=== PATIENT | female | born 1985 | race Caucasian/White ===

== ENCOUNTER → 2019-06-14 14:30 | Outpatient (BNVA) | payer MEDICAID, SELFPAY | PROVIDERS: Family Provider Nurse Practitioner; PCP Nurse Practitioner; Visit Provider Nurse Practitioner Family | DX: J02.9 Acute pharyngitis, unspecified (principal) | CPT/HCPCS: 87081; 87880 ==

== ENCOUNTER 2019-06-16 19:39 | Emergency (ER) | payer MEDICAID, SELFPAY ==
[2019-06-16 19:42] VITALS: BP 120/78; PULSE 81; RESP 18; TEMP 36.7; O2SAT 99; BMI 33.3
--- NOTE | 2019-06-16 20:26 | ED_ITS ---
HPI - General Adult General: Chief complaint: General Medical Stated complaint: knot on neck Time Seen by Provider: 06/16/19 20:16 History of Present Illness: HPI narrative: Patient states she has had a knot on the right side of her neck for the past week. Is tender to the touch. Basically same in size when she is seen in clinic on . She was placed on a Z-Manuel did not show any improvement. Had flu and strep throat swab was done and those were both negative on . Dad recently finished complete therapy for lymphoma complaint: Swollen lymph gland Onset (ago): week(s) Location: neck Radiation: non-radiation Severity: mild Severity scale (1-10): 3 Quality: aching Pain Consistency: constant Relieving factors: none Exacerbating factors: none Associated symptoms: Reports no associated symptoms; Deny chest pain, dyspnea, headache(s), nausea, rash or vomiting Review of Systems Const: Denies: fever, chills or body aches Eyes: Denies: change in vision or blurry vision ENMT: Denies: throat pain or nasal congestion Card: Denies: chest pain or shortness of breath on exertion Resp: Denies: shortness of breath, productive cough or non-productive cough GI: Denies: abdominal pain, nausea or vomiting Musc: Denies: extremity pain Skin/Breast: Denies: rash Neuro: Denies: headache Psych: Denies: anxiety or depression Denis/Lymph: Reports: enlarged lymph nodes (1 on right sided neck); Denies: easy bruising PFSH ED PFSH: Social History (Updated 06/14/19 @ 14:22 by Slime Rodriguez LPN) Smoking and tobacco status: current every day smoker cigarettes Packs smoked per day: 0.5 Alcohol intake: never Lives independently: Yes Household members: spouse Housing: House Marital status: History of recent travel: No Physical Exam Const: COMMON NORMALS: no apparent distress, average body habitus and oriented x3 HENMT: COMMON NORMALS: normocephalic HEAD & SCALP: normal to inspection and normocephalic FACE & SINUS: normal facial exam Eye: COMMON NORMALS: conjunctivae normal GENERAL EYE: normal appearance of both eyes CONJUNCTIVA: Yes conjunctivae normal Neck/C-Spine: COMMON NORMALS: no JVD OTHER: It is hard to appreciate the size of the lymph gland on the right side very difficult to palpate patient is tender but I cannot feel the border on the posterior aspect of what is possibly a lymph node no firmness shotty nodes are erythema noted Chest: COMMONS NORMALS: inspection of chest normal Resp: COMMON NORMALS: normal respiratory effort and clear to auscultation bilaterally AUSCULTATION: clear to auscultation bilaterally Cardio: COMMON NORMALS: no JVD, regular rate and regular rhythm RATE: regular rate RHYTHM: regular rhythm GI: COMMON NORMALS: normal to inspection, nondistended, normoactive bowel sounds Extremity: COMMON NORMALS: normal to inspection and full ROM Neuro: COMMON NORMALS: oriented x3 Course Vital Signs: Vital signs: Vital Signs Temperature 98.0 F 06/16/19 19:42 Pulse Rate 81 06/16/19 19:42 Respiratory Rate 18 06/16/19 19:42 Blood Pressure 120/78 06/16/19 19:42 Pulse Oximetry 99 06/16/19 19:42 Discharge Plan Discharge Prescriptions: No Action Zithromax Z-Manuel 250 mg Tablet 250 mg PO DAILY RF: 0 Coding Level of Care Code ED Plastics Design Engineer for Chg Kassandra
--- NOTE | 2019-06-16 20:34 | PC.NURSE ---
PATIENT STATES THAT SHE WOKE UP Tuesday06/14/2019 WITH A KNOT ON HER NECK. PATIENT HAS BEEN ON ANTIBIOTICS A PRECAUTION AT THE [facility]. PATIENT STATES THAT HER NECK AND EAR ON THE RIGHT SIDE HAVE BEEN NUMB. PATIENT STATES HER PAIN IS A 7/10
[2019-06-16 20:35] LABS: Basophils % 0.2 %; Eosinophils # 0.1 10^3/uL (0.0-0.8); Eosinophils % 2.2 %; Hematocrit 43.6 % (37.0-47.0); Hemoglobin 14.9 g/dL (11.5-15.3); Lymphocytes # 2.4 10^3/uL (0.8-4.8); Lymphocytes % 39.1 %; Mean Corpuscular HGB Conc 34.2 g/dL (30.0-36.0); Mean Corpuscular Hemoglobin 31.6 pg (28.0-34.0); Mean Corpuscular Volume 92.4 fL (81-99); Mean Platelet Volume 9.8 fL (7.4-10.4); Monocytes # 0.5 10^3/uL (0.2-0.9); Monocytes % 8.3 %; Neutrophils % 49.9 %; Nucleated Red Blood Cells % 0 %; Platelet Count 257 10^3/cmm (130-400); Red Blood Count 4.72 10^6/uL (4.1-5.3); Red Cell Distribution Width 12.1 % (12.1-15.1)
[2019-06-16 20:38] VITALS: BP 126/75; PULSE 77; RESP 16; O2SAT 97
--- NOTE | 2019-06-16 20:39 | PC.NURSE ---
PATIENT STATES SHE HAS A FAMILY HISTORY OF LYMPHOMA ON PATERNAL SIDE.
[2019-06-16 20:51] LABS: Monoscreen Negative (Negative)
[2019-06-16 21:02] VITALS: BP 133/66; PULSE 76; RESP 16; O2SAT 98
== END 2019-06-16 21:05 | disposition home or self-care (01) ==
PROVIDERS: Emergency Provider Nurse Practitioner Family; Family Provider Nurse Practitioner; PCP Nurse Practitioner
DX: R59.0 Localized enlarged lymph nodes (principal); F17.210 Nicotine dependence, cigarettes, uncomplicated
CPT/HCPCS: 85025; 86308; 99281; 99282

== ENCOUNTER → 2019-11-26 15:19 | Outpatient (BNVA) | payer MEDICAID, SELFPAY | PROVIDERS: Family Provider Nurse Practitioner; PCP Nurse Practitioner; Visit Provider Nurse Practitioner | DX: N91.1 Secondary amenorrhea (principal) | CPT/HCPCS: 81025 ==

== ENCOUNTER 2019-12-01 18:30 | Emergency (ER) | payer MEDICAID, SELFPAY ==
[2019-12-01 19:01] VITALS: BP 126/74; PULSE 70; RESP 18; TEMP 36.7; O2SAT 97; BMI 31.8
[2019-12-01 19:37] LABS: Basophils % 0.3 %; Eosinophils # 0.3 10^3/uL (0.0-0.8); Eosinophils % 3.5 %; Hematocrit 41.7 % (37.0-47.0); Hemoglobin 14.2 g/dL (11.5-15.3); Lymphocytes % 37.7 %; Mean Corpuscular HGB Conc 34.1 g/dL (30.0-36.0); Mean Corpuscular Hemoglobin 31.2 pg (28.0-34.0); Mean Corpuscular Volume 91.6 fL (81-99); Mean Platelet Volume 9.8 fL (7.4-10.4); Monocytes # 0.6 10^3/uL (0.2-0.9); Monocytes % 7.8 %; Neutrophils % 50.4 %; Nucleated Red Blood Cells % 0 %; Platelet Count 301 10^3/cmm (130-400); Red Blood Count 4.55 10^6/uL (4.1-5.3); Red Cell Distribution Width 12.3 % (12.1-15.1); White Blood Count 7.9 10^3/uL (4.0-10.0)
[2019-12-01 19:49] LABS: HCG, Serum Qual Negative (Negative)
[2019-12-01 19:55] LABS: Alanine Aminotransferase 16 U/L (0-33); Albumin Level 4.6 g/dL (3.5-5.2); Alkaline Phosphatase 59 IU/L (35-105); Anion Gap 14.7 (5-19); Aspartate Amino Transferase 20 U/L (0-32); Blood Urea Nitrogen 9 mg/dL (6-20); Calcium 9.2 mg/dL (8.5-10.5); Carbon Dioxide 22 mmol/L (22-29); Chloride 104 mmol/L (98-107); Creatinine Clr Calc Pharmacy 160.4251; Globulin 3.1 g/dL (1.3-4.6); Glomerular Filtration Rate 141.2 mL/min (90-130); Glucose 108 mg/dL (65-115); Lipase 24 U/L (13-60); Osmolality Calculated 281 mOsm/kg (285-295); Potassium 3.7 mmol/L (3.5-5.1); Sodium 137 mmol/L (136-145); Total Bilirubin 0.2 mg/dL (0.15-1.2); Total Protein 7.7 g/dL (6.6-8.7)
[2019-12-01 23:30] VITALS: BP 116/77; PULSE 67; RESP 16; O2SAT 95
[2019-12-02 00:01] LABS: Add Urine Microscopic? NO
--- NOTE | 2019-12-02 00:03 | USR_ITS ---
PROCEDURE INFORMATION: Exam: US Duplex Artery or Vein of the Abdominal and/or Reproductive Organs, Limited Ovaries Exam date and time: 12/02/2019 12:43 AM Clinical indication: Other: Patient has not had a period in 14 weeks; Prior surgery; Surgery date: 6+ months; Surgery type: Tubal and c section x 2; Additional info: Abd pain, amenorrhea TECHNIQUE: Imaging protocol: Real-time duplex ultrasound scan of the arterial or venous flow with brown scale, color Doppler flow and spectral waveform analysis with image documentation. Limited duplex exam focused on the ovaries. Duplex images required to evaluate for torsion and other vascular conditions. COMPARISON: No relevant prior studies available. FINDINGS: Right adnexa: Normal duplex of the ovary. Normal Doppler waveforms and color flow. No evidence of ovarian torsion. Left adnexa: Normal duplex of the ovary. Normal Doppler waveforms and color flow. No evidence of ovarian torsion. IMPRESSION: Normal blood flow to both ovaries. PROCEDURE INFORMATION: Exam: US Pelvis Complete, Transabdominal and US Pelvis, Transvaginal Exam date and time: 12/02/2019 12:43 AM Age: 34 years old Clinical indication: Other: Patient has not had a period in 14 weeks; Prior surgery; Surgery date: 6+ months; Surgery type: Tubal and c section x 2; Additional info: Abd pain, amenorrhea TECHNIQUE: Imaging protocol: Real-time transabdominal and transvaginal pelvic ultrasound (complete) with image documentation. Transvaginal imaging was used for better evaluation of the endometrium and adnexa. COMPARISON: CT abdomen pelvis con [id number] 07/17/2015 8:10 PM FINDINGS: Uterus/cervix: The uterus is retroflexed. Contours are otherwise normal. The endometrium is homogenous. Endometrial stripe thickness measures 10 mm. The uterus measures 9.2 x 6.9 x 5.2 cm. Right adnexa: The right ovary contains a cyst with low level internal echoes and subtle lace-like internal septations (see series 1, image 103). There is no blood flow within the lesion. The lesion measures 3.8 x 3.3 x 3.0 cm. There is normal blood flow in the right ovary. The right ovary measures 4.7 x 4.4 x 3.4 cm overall. Left adnexa: The left ovary is morphologically normal. The left ovary measures 2.9 x 2.7 x 2.0 cm. There is normal blood flow in the left ovary. Free fluid: None. Bladder: Normal. US/US pelvic with transvaginal IMPRESSION: 1. 3.8 cm hemorrhagic cyst in the right ovary. Imaging follow-up is not necessary. 2. Normal left ovary. 3. Retroflexed uterus. Normal endometrium.
[2019-12-02 00:04] LABS: Urine Color Yellow (Yellow)
[2019-12-02 00:05] LABS: Bilirubin Urine Neg (NEGATIVE); Blood Urine Neg (Negative); Glucose Urine UA Norm (Normal); Ketones Urine Negative (Negative); Leukocyte Esterase Urine Negative (Negative); Nitrate Urine Negative (Negative); Protein Urine Neg (Negative); Urine Appearance Clear (CLEAR); Urobilinogen Urine Norm (Negative); pH Urine 5 (5-7)
[2019-12-02 00:20] LABS: HCG Qualitative Urine. Negative (Negative)
[2019-12-02 02:26] VITALS: BP 108/81; PULSE 61; RESP 16; O2SAT 99
--- NOTE | 2019-12-02 04:49 | W.ED.ABDPA2 ---
HPI - Abdominal Pain General: Chief Complaint: Abdominal Pain Stated Complaint: possible / abd pain/ 14 weeks 30 days l8 Time Seen by Provider: 12/01/19 23:06 History of Present Illness: HPI narrative: 34-year-old female presenting with pelvic pain. No vaginal discharge. She notes that she has not had a period since September. She is taken tests at home which are negative. She denies any fever. She denies vomiting. MD elicited complaint: abdominal pain Pertinent past history: none Onset (ago): week(s) Pain Consistency: intermittent Location: Suprapubic and Pelvis Severity: moderate Quality: cramping Radiation: none Migration to: no migration Exacerbating factors: nothing Relieving factors: nothing Associated Symptoms: Reports bloating, change in bowel habits, change in stool character, GI cramping, diarrhea and nausea; Denies fever(s), hematochezia, hematuria, hematemesis and vomiting Related Data: Date of Last Menstrual Period: 08/22/19 Review of Systems Const: Denies: fever(s) Eyes: Denies: change in vision ENMT: Denies: swelling of lips/tongue Card: Denies: chest pain, palpitations or irregular heart rhythm Resp: Denies: dyspnea, productive cough, non-productive cough or wheezing GI: Reports: nausea, diarrhea, bloating, GI cramping, change in bowel habits and change in stool character; Denies: vomiting, hematemesis or hematochezia : Denies: hematuria Musc: Denies: neck pain or back pain Skin/Breast: Denies: rash or erythema Neuro: Denies: headache(s), dizziness or vertigo Psych: Denies: anxiety PFS ED PFSH: Medical History (Updated 12/02/19 @ 02:15 by Kurt Trujillo DO) Chronic hand pain Environmental and seasonal allergies Vitamin B deficiency Surgical History (Updated 11/28/19 @ 22:30 by EVELYN Persaud) History of section 2012 and 2014 History of hemorrhoidectomy History of surgery on arm right tendon repair 2017 History of tubal ligation Family History (Updated 11/26/19 @ 15:16 by EVELYN Persaud) Father Cancer Bone and Lymphoma Other Heart disease Denies family history of Bleeding disorder Social History Smoking and tobacco status: current every day smoker cigarettes Packs smoked per day: 0.5 Second hand smoke exposure: Yes Smoking risk assessment/counseling performed?: Yes Alcohol intake: never Desire information about alcohol rehabilitation?: No Counseling given: No Desire information about substance/drug rehabilitation?: No Counseling given: No Adopted: No Caregiver/support person: No Lives independently: Yes Household members: spouse Housing: House Marital status: Number of children: 6 service: No Current occupational status: employed History of recent travel: No Current gender identity: Female Female Reproductive History: Date of last menstrual period: 08/22/19 Physical Exam Const: GENERAL APPEARANCE: well developed ORIENTATION/CONSCIOUSNESS: Yes oriented to person, Yes oriented to place and Yes oriented to time HENMT: COMMON NORMALS: normocephalic, external ears normal and Normal external nose present HEAD & SCALP: normocephalic FACE & SINUS: normal facial exam NOSE: Normal external nose present and No nasal discharge present EXTERNAL EAR: Yes external ears normal MOUTH: tongue normal Eye: COMMON NORMALS: Equal, round and reactive pupils present and EOMs intact bilaterally EYELID: eyelids normal PUPIL: Yes Equal, round and reactive pupils present Neck/C-Spine: GENERAL: No tracheal deviation Chest: COMMONS NORMALS: normal inspection of the chest CHEST: No tenderness Resp: COMMON NORMALS: clear to auscultation bilaterally EFFORT & INSPECTION: No tachypneic, No respiratory distress, No retractions, No uses accessory muscles and No tracheal deviation AUSCULTATION: clear to auscultation bilaterally, no rhonchi, no wheezes and lung sounds not diminished Cardio: COMMON NORMALS: regular rate and regular rhythm RATE: regular rate RHYTHM: regular rhythm HEART SOUNDS: no murmurs PERIPHERAL PULSES: radial pulses present GI: INSPECTION: No abdominal distension AUSCULTATION: No Hyperactive bowel sounds present and No Hypoactive bowel sounds present PALPATION: Yes Tenderness to palpation present (GI) Details: LLQ, RLQ and other (suprapubic), No Guarding due to palpation present (GI) and No Rigid due to palpation PERCUSSION: no dullness to percussion and no tympanic to percussion Neuro: SENSORIUM/ORIENTATION: Yes oriented to person, Yes oriented to place and Yes oriented to time Psych: COMMON NORMALS: mental status grossly normal Skin: COMMON NORMALS: no rashes or lesions noted GENERAL SKIN EXAM: no rashes or lesions noted Course Vital Signs: Vital signs: Vital Signs Temperature 98.0 F 12/01/19 19:01 Pulse Rate 61 12/02/19 02:26 Respiratory Rate 16 12/02/19 02:26 Blood Pressure 108/81 12/02/19 02:26 Pulse Oximetry 99 12/02/19 02:26 MDM - Abdominal Pain MDM Narrative: Medical decision making narrative: 34-year-old female with intermittent pelvic pain, and amenorrhea. Her test is negative here. Hemoglobin is 14. Pelvic ultrasound shows a hemorrhagic ovarian cyst. It is otherwise negative. This is likely the source of her pelvic pain. She was informed of this. She may need hormonal treatment for the amenorrhea. For now, she will be allowed home. Lab Data: Attestation: I reviewed the patient's lab results. Labs: Lab Results 12/01/19 12/01/19 12/01/19 Range/Units 19:18 19:18 19:18 WBC 7.9 (4.0-10.0) 10^3/ uL RBC 4.55 (4.1-5.3) 10^6/u L Hgb 14.2 (11.5-15.3) g/dL Hct 41.7 (37.0-47.0) % MCV 91.6 (81-99) fL MCH 31.2 (28.0-34.0) pg MCHC 34.1 (30.0-36.0) g/dL RDW 12.3 (12.1-15.1) % Plt Count 301 (130-400) 10^3/c mm MPV 9.8 (7.4-10.4) fL Neut % (Auto) 50.4 % Lymph % (Auto) 37.7 % Sierra % (Auto) 7.8 % Eos % (Auto) 3.5 % Baso % (Auto) 0.3 % Neut # (Auto) 4.00 (1.8-7.7) 10^3/u L Lymph # (Auto) 3.0 (0.8-4.8) 10^3/u L Sierra # (Auto) 0.6 (0.2-0.9) 10^3/u L Eos # (Auto) 0.3 (0.0-0.8) 10^3/u L Baso # (Auto) 0.0 (0.0-0.1) 10^3/u L Nucleated RBC % (a uto) 0 % Nucleated RBCs # 0.0 /100WBC Sodium 137 (136-145) mmol/L Potassium 3.7 (3.5-5.1) mmol/L Chloride 104 (98-107) mmol/L Carbon Dioxide 22 (22-29) mmol/L Anion Gap 14.7 (5-19) BUN 9 (6-20) mg/dL Creatinine 0.5 (0.5-0.9) mg/dL GFR Calculation 141.2 H (90-130) mL/min Glucose 108 (65-115) mg/dL Calculated Osmolal ity 281 L (285-295) mOsm/k g Calcium 9.2 (8.5-10.5) mg/dL Total Bilirubin 0.2 (0.15-1.2) mg/dL AST 20 (0-32) U/L ALT 16 (0-33) U/L Alkaline Phosphata se 59 (35-105) IU/L Total Protein 7.7 (6.6-8.7) g/dL Albumin 4.6 (3.5-5.2) g/dL Globulin 3.1 (1.3-4.6) g/dL Lipase 24 (13-60) U/L HCG, Qual Negative (Negative) Urine Color (Yellow) Urine Appearance (CLEAR) Urine pH (5-7) Ur Specific Gravit y (1.005-1.030) Urine Protein (Negative) Urine Glucose (UA) (Normal) Urine Ketones (Negative) Urine Blood (Negative) Urine Nitrate (Negative) Urine Bilirubin (NEGATIVE) Urine Urobilinogen (Negative) mg/dL Ur Leukocyte Martha ase (Negative) 12/01/19 12/01/19 Range/Units 23:37 23:37 WBC (4.0-10.0) 10^3/ uL RBC (4.1-5.3) 10^6/u L Hgb (11.5-15.3) g/dL Hct (37.0-47.0) % MCV (81-99) fL MCH (28.0-34.0) pg MCHC (30.0-36.0) g/dL RDW (12.1-15.1) % Plt Count (130-400) 10^3/c mm MPV (7.4-10.4) fL Neut % (Auto) % Lymph % (Auto) % Sierra % (Auto) % Eos % (Auto) % Baso % (Auto) % Neut # (Auto) (1.8-7.7) 10^3/u L Lymph # (Auto) (0.8-4.8) 10^3/u L Sierra # (Auto) (0.2-0.9) 10^3/u L Eos # (Auto) (0.0-0.8) 10^3/u L Baso # (Auto) (0.0-0.1) 10^3/u L Nucleated RBC % (a uto) % Nucleated RBCs # /100WBC Sodium (136-145) mmol/L Potassium (3.5-5.1) mmol/L Chloride (98-107) mmol/L Carbon Dioxide (22-29) mmol/L Anion Gap (5-19) BUN (6-20) mg/dL Creatinine (0.5-0.9) mg/dL GFR Calculation (90-130) mL/min Glucose (65-115) mg/dL Calculated Osmolal ity (285-295) mOsm/k g Calcium (8.5-10.5) mg/dL Total Bilirubin (0.15-1.2) mg/dL AST (0-32) U/L ALT (0-33) U/L Alkaline Phosphata se (35-105) IU/L Total Protein (6.6-8.7) g/dL Albumin (3.5-5.2) g/dL Globulin (1.3-4.6) g/dL Lipase (13-60) U/L HCG, Qual Negative (Negative) Urine Color Yellow (Yellow) Urine Appearance Clear (CLEAR) Urine pH 5 (5-7) Ur Specific Gravit y 1.010 (1.005-1.030) Urine Protein Neg (Negative) Urine Glucose (UA) Norm (Normal) Urine Ketones Negative (Negative) Urine Blood Neg (Negative) Urine Nitrate Negative (Negative) Urine Bilirubin Neg (NEGATIVE) Urine Urobilinogen Norm (Negative) mg/dL Ur Leukocyte Martha ase Negative (Negative) Discharge Plan Discharge Patient Disposition: Home Clinical Impression: Hemorrhagic cyst of right ovary Condition: Stable Prescriptions: No Action cyclobenzaprine 10 mg tablet 10 mg PO TID PRNRF: 0 Discharge Orders: Discharge Order (Routine); Ordered 12/02/19 Ordered By: Kurt Trujillo Referrals: Yordan Maurer FNP-C [Primary Care Provider] - 4-7 days Discharge Diet: Advance as tolerated Discharge Activity: Increase activity as tolerated Patient Instructions: Ovarian Cyst (ED) Activity Restrictions/Additional Instructions: Return for fever greater than 100, vomiting liquids or medications, passing large amounts of blood, with clots soaking more than 1 pad per hour for more than 3 hours. Follow-up with your doctor. There may be outpatient treatment available for your treatment. Discharge Date/Time: 12/02/19 02:29 Coding Level of Care Code ED Award Machine Operator for Paris Cannon
== END 2019-12-02 02:29 | disposition home or self-care (01) ==
PROVIDERS: Emergency Provider Emergency Medicine; PCP Nurse Practitioner
DX: N83.201 Unspecified ovarian cyst, right side (principal); F17.210 Nicotine dependence, cigarettes, uncomplicated
CPT/HCPCS: 12345; 36415; 76830; 76856; 80053; 81003; 81025; 83690; 84703; 85025; 99282; 99283

== ENCOUNTER → 2020-01-21 09:34 | Outpatient (BNVA) | payer MEDICAID, SELFPAY | PROVIDERS: PCP Family Medicine; Visit Provider Family Medicine | DX: N64.3 Galactorrhea not associated with childbirth (principal); F41.1 Generalized anxiety disorder | CPT/HCPCS: 84146 ==

== ENCOUNTER 2020-06-18 16:52 | Emergency (ER) | payer MEDICAID, SELFPAY ==
[2020-06-18 17:09] VITALS: BP 111/74; PULSE 75; RESP 18; TEMP 36.6; O2SAT 97; BMI 30.1
--- NOTE | 2020-06-18 17:51 | CTR_ITS ---
PROCEDURE INFORMATION: Exam: CT Cervical Spine Without Contrast Exam date and time: 06/18/2020 5:57 PM Age: 34 years old Clinical indication: Neck pain; Additional info: Neck pain, bue weakness TECHNIQUE: Imaging protocol: Computed tomography images of the cervical spine without contrast. Radiation optimization: All CT scans at this facility use at least one of these dose optimization techniques: automated exposure control; mA and/or kV adjustment per patient size (includes targeted exams where dose is matched to clinical indication); or iterative reconstruction. COMPARISON: CR Cervical Spine AP/Lat* [id number] 08/17/2017 4:49 PM RADIATION DOSE METRICS: Total DLP (mGy-cm): 883.25 FINDINGS: Bones/joints: There is scoliosis of the cervical spine concave to the left which may be the result of muscular spasm or positioning. Correlation with clinical findings is suggested. Vertebral alignment is otherwise within normal limits. No fracture is identified. Discs/Spinal canal/Neural foramina: No significant disc protrusion. No severe spinal canal stenosis. No significant neural foraminal narrowing. Lungs: Lung apices are normal. Soft tissues: Prevertebral soft tissues are unremarkable. CT/CT cervical spin wo con* [id number] IMPRESSION: Mild scoliosis as described which may be due to muscular spasm. No fracture is identified. Radiation Dose CTDIVOL = (mGy): DLP = 883.25 (mGy-cm)
--- NOTE | 2020-06-18 17:52 | W.ED.GENADLT ---
HPI - General Adult General: Chief complaint: General Medical Stated complaint: Neck Pain Time Seen by Provider: 06/18/20 17:40 Source: patient Mode of arrival: ambulatory Limitations: no limitations History of Present Illness: HPI narrative: 34-year-old female patient presents to the emergency department with acute change of neck pain. She has history of chronic neck and back pain. Went to the chiropractor on 06/14/2020 for adjustment. She reports woke this morning and was not able to turn her neck. She reports rotation of the neck to the left, as she tries to move her to the right, she experiences intense pain of the right scapula. Onset (ago): day(s) (1) Location: neck Radiation: back Severity: moderate and severe Quality: aching and dull Pain Consistency: constant Relieving factors: medication (Attempted muscle relaxers but did not help as well as ibuprofen) Exacerbating factors: movement Associated symptoms: Deny chest pain, confusion, diaphoresis, dyspnea, headache(s), nausea, rash, palpitations or vomiting Treatments prior to arrival: NSAID and other (Muscle relaxer) Review of Systems General: Reports: 10 or more systems reviewed and unremarkable except in HPI and below Const: Denies: fever(s), chills or diaphoresis Eyes: Denies: blurry vision or eye redness ENMT: Denies: throat pain, dental pain or disequilibrium Card: Denies: chest pain, palpitations or irregular heart rhythm Resp: Denies: dyspnea, productive cough, non-productive cough or wheezing GI: Denies: abdominal pain, nausea or vomiting : Denies: difficulty voiding or dysuria Musc: Reports: neck pain; Denies: back pain, joint pain, joint swelling, joint warmth, joint stiffness or muscle cramps Skin/Breast: Denies: rash or pruritus Neuro: Reports: weakness in extremities (BUE); Denies: headache(s), difficulty walking, confusion or behavioral changes Psych: Denies: anxiety, depression or change in appetite Denis/Lymph: Denies: easy bruising PFSH ED PFSH: Medical History (Updated 06/18/20 @ 18:46 by KAYLYNN Jernigan) Chronic hand pain Environmental and seasonal allergies Vitamin B deficiency Surgical History History of section 2012 and 2014 History of hemorrhoidectomy History of surgery on arm right tendon repair 2017 History of tubal ligation Family History Father Cancer Bone and Lymphoma Other Heart disease Denies family history of Bleeding disorder Social History Smoking and tobacco status: current every day smoker cigarettes Packs smoked per day: 0.5 Second hand smoke exposure: Yes Smoking risk assessment/counseling performed?: Yes Alcohol intake: never Desire information about alcohol rehabilitation?: No Counseling given: No Desire information about substance/drug rehabilitation?: No Counseling given: No Adopted: No Caregiver/support person: No Lives independently: Yes Household members: spouse Housing: House Marital status: Number of children: 6 service: No Current occupational status: employed History of recent travel: No Current gender identity: Female Female Reproductive History: Date of last menstrual period: 08/22/19 Physical Exam Const: COMMON NORMALS: no acute distress, patient oriented x3, healthy appearing, alert and well nourished GENERAL APPEARANCE: cooperative, well kempt, well developed and well hydrated; not ill appearing and not frail appearing ORIENTATION/CONSCIOUSNESS: Yes awake, Yes oriented to person, Yes oriented to place and Yes oriented to time; not confused and not patient obtunded HENMT: COMMON NORMALS: normocephalic, atraumatic, external ears normal, EAC's normal, Normal external nose present and moist oral mucous membranes HEAD & SCALP: normal to inspection, normocephalic and atraumatic FACE & SINUS: sinuses nontender NOSE: Normal external nose present and No nasal polyps present EXTERNAL EAR: Yes external ears normal EXTERNAL AUDITORY CANAL: EAC's normal MOUTH: Normal oral and palatal mucosa present, lip normal and tongue normal THROAT: posterior oropharynx normal Eye: COMMON NORMALS: Equal, round and reactive pupils present and EOMs intact bilaterally GENERAL EYE: appearance normal, both eyes and all related structures PUPIL: Yes Equal, round and reactive pupils present Neck/C-Spine: COMMON NORMALS: full ROM, no lymphadenopathy and supple GENERAL: Yes normal visual inspection and Yes trachea midline CERVICAL SPINE: Yes cervical ROM normal, Yes pain with cervical ROM, Yes Cervical spine tenderness, Yes Paracervical muscle tenderness right, Yes Paracervical spasm right and Yes Trapezius muscle tenderness right OTHER: Head is rotated to the left., Pain with head rotation to the right. Flexion and extension limited secondary to pain Lymph: LYMPHATIC: no lymphadenopathy noted Chest: COMMONS NORMALS: normal inspection of the chest and normal palpation of entire chest wall Resp: COMMON NORMALS: normal respiratory effort, No retractions, No use of accessory muscles and clear to auscultation bilaterally EFFORT & INSPECTION: Yes able to speak in complete sentences, No labored and No audible wheezes AUSCULTATION: clear to auscultation bilaterally Cardio: COMMON NORMALS: regular rate, regular rhythm, S1 normal heart sound present, S2 normal heart sound present and Peripheral pulses 2+ throughout RATE: regular rate RHYTHM: regular rhythm HEART SOUNDS: S1 normal heart sound present and S2 normal heart sound present PERIPHERAL PULSES: Peripheral pulses 2+ throughout GI: COMMON NORMALS: Soft to palpation and non-tender INSPECTION: Yes normal to inspection PALPATION: Yes Soft to palpation : COMMON NORMALS: Yes no CVA tenderness BLADDER/KIDNEY EXAM: Yes no CVA tenderness Back/Pelvis: COMMON NORMALS: no CVA tenderness, thoracic and lumbar spine normal to inspection, no thoracic nor lumbar tenderness, thoraco-lumbar ROM normal and straight leg raise negative bilaterally THORACIC SPINE/UPPER BACK: No thoracic spinal tenderness and Yes paraspinal muscle tenderness Thoracic paraspinal muscle tenderness: right LUMBAR SPINE/LOWER BACK: Yes normal to inspection and Yes lumbar ROM normal Extremity: COMMON NORMALS: normal to inspection, capillary refill normal, no joint enlargement, no clubbing, cyanosis or edema, no calf tenderness and no pedal edema GENERAL: Yes normal exam except as noted Neuro: WALKER COMA SCALE: document GCS findings Walker coma scale eye opening: Spontaneous Ripley coma scale verbal response: Orientated Ripley coma scale motor response: Obey commands Ripley coma scale total score: 15 COMMON NORMALS: patient oriented x3 and no focal motor deficits SENSORIUM/ORIENTATION: Yes alert, Yes oriented to person, Yes oriented to place and Yes oriented to time SPEECH: speech normal GAIT: Yes Normal gait present MONOFILAMENT EXAM PERFORMED: Yes (BUE, digits first third and fifth normal monofilament exam) MOTOR EXAM: 5/5 motor strength present throughout, Pronator motor function not present and Other motor observations present (Pain reproduced with arms at 90 degrees abduction to the rt scapula) Right pupil size (mm): 4 Left pupil size (mm): 4 Psych: COMMON NORMALS: mental status grossly normal, Normal thought process present, cooperative, normal affect, speech normal, activity/motor behavior normal, denies hallucinations, denies homicidal ideation and denies suicidal ideation APPEARANCE: Yes well kempt ACTIVITY/MOTOR BEHAVIOR: Yes appropriate eye contact SPEECH: Yes normal speech THOUGHT PROCESS: Normal thought process present THOUGHT CONTENT: Yes Normal thought content present ATTENTION/CONCENTRATION: Yes attention grossly intact MEMORY/COGNITION: Yes memory grossly intact INSIGHT: Good insight present (Psych) JUDGEMENT: Good judgement present (Psych) Skin: COMMON NORMALS: no rashes or lesions noted and turgor normal GENERAL SKIN EXAM: no rashes or lesions noted and turgor normal Course Vital Signs: Vital signs: Vital Signs Temperature 97.8 F 06/18/20 17:09 Pulse Rate 77 06/18/20 17:56 Respiratory Rate 24 H 06/18/20 17:56 Blood Pressure 121/93 06/18/20 17:56 Pulse Oximetry 98 06/18/20 17:56 Discharge Plan Discharge Patient Disposition: Home Clinical Impression: Torticollis, acute Acute strain of neck muscle Qualifiers: Encounter type: initial encounter Qualified Code(s): S16.1XXA - Strain of muscle, fascia and tendon at neck level, initial encounter Condition: Stable Prescriptions: New prednisone 20 mg tablet 20 mg PO BID 5 Days Qty: 10 RF: 0 methocarbamol 750 mg tablet 750 mg PO Q6H Qty: 10 RF: 0 Discontinued cyclobenzaprine 10 mg tablet 10 mg PO BID PRN (Reason: MUSCLE SPASMS) RF: 0 No Action citalopram 10 mg tablet 10 mg PO DAILY@0900 RF: 0 omeprazole 40 mg capsule,delayed release(DR/EC) 40 mg PO DAILY@0900 RF: 0 Discharge Orders: Discharge ED (Routine); Ordered 06/18/20 Ordered By: Maria Teresa Alba Referrals: Eugenie Buenrostro DO [Primary Care Provider] - Discharge Diet: Usual diet Discharge Activity: Resume usual activity Patient Instructions: Cervical Sprain (ED), Opioid Safety, Torticollis Activity Restrictions/Additional Instructions: Warm moist heat alternate with cool compresses with small range of motion exercises and attempt to straighten your neck. Follow-up with your primary care provider if not improved in 2 to 3 days as physical therapy may be needed May apply [id number] Salonpas to help with pain. Stop cyclobenzaprine, new muscle relaxer, methocarbamol has been provided. Do not drive or operate heavy machinery with use of medication as medication can be sedative Take ibuprofen, 3 tablets, 200 mg 3 times daily. To help with inflammation and pain, take with food May take Tylenol, 1 g 3 times daily as needed for pain. Return to the emergency department if you develop fever, increased weakness of the bilateral upper extremities or inability to feel your arms or legs, bowel or bladder incontinence as these findings are medical emergency. Coding Level of Care Code ED Longitudinal Float Operator for Chg Fwd Exam Comprehensive
[2020-06-18 17:56] VITALS: BP 121/93; PULSE 77; RESP 24; O2SAT 98
[2020-06-18] MEDS: HYDROcodone-acetaminophen 5-325 mg Tablet 1 TAB PO (18:18)
[2020-06-18] MEDS: ketorolac 60 mg/2 mL INJ IM (18:21)
[2020-06-18] MEDS: orphenadrine 30 mg/mL Inj 2 mL 60 MG IM (18:25)
[2020-06-18 19:16] VITALS: BP 116/70; PULSE 76; RESP 18; O2SAT 98
== END 2020-06-18 19:05 | disposition home or self-care (01) ==
PROVIDERS: Emergency Provider Nurse Practitioner Family; PCP Family Medicine
DX: M43.6 Torticollis (principal); S16.1XXA Strain of muscle, fascia and tendon at neck level, initial encounter; F17.210 Nicotine dependence, cigarettes, uncomplicated; X58.XXXA Exposure to other specified factors, initial encounter
CPT/HCPCS: 72125; 96372; 99283; J1885; J2360

== ENCOUNTER 2020-06-23 09:31 | Outpatient (CLI) | payer OTHER, MEDICAID, SELFPAY ==
--- NOTE | 2020-06-23 09:47 | XR_ITS ---
WS: [id number] WRIST RIGHT TECHNIQUE: 2 views of the right wrist CLINICAL INFORMATION: WRIST PAIN COMPARISON: None. FINDINGS: Normal radiocarpal joint. Scaphoid is normal in appearance. No evidence of radiocarpal dislocation. D istal radius and ulna are normal in appearance. XR/XR wrist RT 2V [id number] IMPRESSION: Normal right wrist.
--- NOTE | 2020-06-23 09:48 | XR_ITS ---
WS: [id number] TECHNIQUE: 2 views of the right hand CLINICAL INFORMATION: HAND PAIN COMPARISON: None. FINDINGS: Normal metacarpals. Normal MCP joint. Metacarpal heads are normal in appearance. Normal PIP and DIP j oints. No evidence of acute fracture or dislocation. Radiocarpal joint: Normal. Carpal bones: Normal. XR/XR hand RT 2V [id number] IMPRESSION: Normal right hand.
== END 2020-06-23 09:32 | disposition home or self-care (01) ==
LOC: RAD 09:33
PROVIDERS: PCP Family Medicine; Visit Provider Dermatology
DX: Z02.71 Encounter for disability determination (principal); M79.641 Pain in right hand; M25.531 Pain in right wrist
CPT/HCPCS: 73100; 73120

== ENCOUNTER → 2020-07-25 14:03 | Outpatient (BNVA) | payer MEDICAID, SELFPAY | PROVIDERS: PCP Family Medicine; Visit Provider Family Medicine | DX: D50.9 Iron deficiency anemia, unspecified (principal); R20.2 Paresthesia of skin | CPT/HCPCS: 82607; 82728; 83550; 84443; 85025 ==

== ENCOUNTER → 2020-12-31 11:35 | Outpatient (BNVA) | payer MEDICAID, SELFPAY | PROVIDERS: PCP Family Medicine; Visit Provider Nurse Practitioner Family | DX: Z20.822 Contact with and (suspected) exposure to COVID-19 (principal) | CPT/HCPCS: 87635 ==

== ENCOUNTER 2021-01-31 19:47 | Emergency (ER) | payer MEDICAID, SELFPAY ==
[2021-01-31 20:13] LABS: Add Urine Microscopic? NO; Charge for UA Resulting for Rev
[2021-01-31 20:16] VITALS: BP 117/81; PULSE 75; RESP 18; TEMP 36.8; O2SAT 98; BMI 33.5
--- NOTE | 2021-01-31 20:24 | W.ED.FEMALGU ---
HPI - Female Genitourinary General: Chief complaint: Urogenital-Female Stated complaint: Spot on Vagina Time Seen by Provider: 01/31/21 20:24 History of Present Illness: HPI Narrative: 35-year-old female comes in today with complaints of soreness and tenderness to the left labia. Patient appears well. Patient appears no acute distress. Patient reports that 3 days ago she noted a small nodule there that has enlarged over the past 3 days. Patient denies any fever or chills. Patient does have a history of abscesses. Date of Last Menstrual Period: 01/14/21 Review of Systems General: Reports: 10 or more systems reviewed and unremarkable except in HPI and below Skin/Breast: Reports: changing lesions PFSH ED PFSH: Medical History Chronic hand pain Environmental and seasonal allergies Vitamin B deficiency Surgical History History of section 2012 and 2014 History of hemorrhoidectomy History of surgery on arm right tendon repair 2017 History of tubal ligation Family History Father Cancer Bone and Lymphoma Other Heart disease Denies family history of Bleeding disorder Social History Smoking and tobacco status: current every day smoker cigarettes Packs smoked per day: 0.5 Second hand smoke exposure: Yes Smoking risk assessment/counseling performed?: Yes Alcohol intake: never Desire information about alcohol rehabilitation?: No Counseling given: No Desire information about substance/drug rehabilitation?: No Counseling given: No Adopted: No Caregiver/support person: No Lives independently: Yes Household members: spouse Housing: House Marital status: Number of children: 6 service: No Current occupational status: employed History of recent travel: No Current gender identity: Female Female Reproductive History: Date of last menstrual period: 01/14/21 Physical Exam Const: COMMON NORMALS: no acute distress and patient oriented x3 GENERAL APPEARANCE: cooperative HENMT: COMMON NORMALS: normocephalic and Normal external nose present HEAD & SCALP: normal to inspection and normocephalic NOSE: Normal external nose present Eye: GENERAL EYE: appearance normal, both eyes and all related structures Neck/C-Spine: COMMON NORMALS: full ROM Chest: COMMONS NORMALS: normal inspection of the chest Resp: COMMON NORMALS: normal respiratory effort EFFORT & INSPECTION: Yes able to speak in complete sentences Cardio: COMMON NORMALS: regular rate and regular rhythm RATE: regular rate RHYTHM: regular rhythm GI: COMMON NORMALS: non-tender Extremity: COMMON NORMALS: normal to inspection Neuro: COMMON NORMALS: patient oriented x3 and moves all extremities Psych: COMMON NORMALS: mental status grossly normal and cooperative Skin: NARRATIVE SKIN EXAM: 2 cm abscess to the left labia Procedures Abscess I/D Site: other (Left labia) Side (if applicable): left Local Anesthetic: lidocaine 2% and with epi Amount of anesthesia used (mL): 1 Technique: incised with #11 blade Amount of fluid expressed (mL): 0.5 Irrigation: Yes Packing used?: none Complications: pain Course Vital Signs: Vital signs: Vital Signs Temperature 98.4 F 01/31/21 20:26 Pulse Rate 66 01/31/21 20:26 Respiratory Rate 18 01/31/21 20:26 Blood Pressure 117/81 01/31/21 20:16 Pulse Oximetry 98 01/31/21 20:26 MDM - Female MDM Narrative: Medical decision making narrative: Patient presents with a abscess to the left labia. On exam we note a small abscess approximately 2 cm of induration and redness. Differential diagnosis includes cellulitis, folliculitis, abscess. Under local anesthetic of lidocaine 2% with epinephrine a small incision was made into the abscess with a small amount of purulent fluid from it. Wound was deloculated and a dry dressing applied. Patient was covered with doxycycline 1 tablet in the emergency room and will be continued twice daily for the next 7 days. Patient was given a tablet of hydrocodone for breakthrough pain number 5 tablets on a prescription. Review of the record indicated no recent prescriptions for hydrocodone. Patient is reports understanding of care plan, post procedure care, and need for follow-up or return to the ER. Lab Data: Labs: Lab Results 01/31/21 19:55 Urine Color Yellow (Yellow) Urine Appearance Clear (CLEAR) Urine pH 6.5 (5-7) Ur Specific Gravit y 1.010 (1.005-1.030) Urine Protein Neg (Negative) Urine Glucose (UA) Norm (Normal) Urine Ketones Negative (Negative) Urine Blood Neg (Negative) Urine Nitrate Negative (Negative) Urine Bilirubin Neg (Negative) Urine Urobilinogen 1 mg/dL H mg/dL (Negative) Ur Leukocyte Martha ase Negative (Negative) Discharge Plan Discharge Patient Disposition: Home Condition: Stable Prescriptions: New doxycycline monohydrate 100 mg capsule 100 mg PO BID 7 Days Qty: 14 RF: 0 hydrocodone-acetaminophen 5-325 mg tablet 1 tab PO Q8H PRN (Reason: pain (scale score 7-10)) Qty: 5 RF: 0 Discontinued doxycycline hyclate 100 mg capsule 100 mg PO BID Qty: 20 RF: 0 No Action [id number] 3.5-10,000-1 mg/mL-unit/mL-% drops,suspension 4 drp otic (ear) Q8H 10 Days Qty: 10 RF: 0 dexamethasone 6 mg tablet 6 mg PO DAILY 5 Days Qty: 5 RF: 0 ropinirole 0.5 mg tablet 0.5 mg PO .AT BEDTIME 90 Days Qty: 90 RF: 0 citalopram 20 mg tablet 20 mg PO DAILY@0900 Qty: 90 RF: 0 omeprazole 40 mg capsule,delayed release(DR/EC) 40 mg PO DAILY@0900 RF: 0 methocarbamol 750 mg tablet 750 mg PO Q6H Qty: 10 RF: 0 Discharge Orders: Discharge ED (Routine); Ordered 01/31/21 Ordered By: Dewey Mera Discharge Diet: Usual diet Discharge Activity: Increase activity as tolerated Patient Instructions: Abscess Incision and Drainage (DC), Opioid Safety Activity Restrictions/Additional Instructions: Warm moist packs to the area. Use acetaminophen and ibuprofen for pain. Monitor for worsening swelling, high fever greater than 100.4, or new concerns. Follow-up with primary care as needed. Return to the ER for new concerns. Coding Level of Care Code ED Laundry Operator Wash Room for P[place] [facility]
[2021-01-31 20:26] VITALS: PULSE 66; RESP 18; TEMP 36.9; O2SAT 98
[2021-01-31 20:27] LABS: Bilirubin Urine Neg (Negative); Blood Urine Neg (Negative); Glucose Urine UA Norm (Normal); Ketones Urine Negative (Negative); Leukocyte Esterase Urine Negative (Negative); Nitrate Urine Negative (Negative); Protein Urine Neg (Negative); Urine Appearance Clear (CLEAR); Urine Color Yellow (Yellow); Urobilinogen Urine 1 mg/dL (Negative); pH Urine 6.5 (5-7)
[2021-01-31] MEDS: HYDROcodone-acetaminophen 5-325 mg Tablet 1 TAB PO (21:02)
[2021-01-31] MEDS: doxycycline 100 mg Tablet PO (21:03)
[2021-01-31 21:04] VITALS: BP 114/71; PULSE 68; RESP 16; TEMP 36.8; O2SAT 100
== END 2021-01-31 21:08 | disposition home or self-care (01) ==
PROVIDERS: Emergency Provider Nurse Practitioner Family
DX: N76.4 Abscess of vulva (principal); F17.210 Nicotine dependence, cigarettes, uncomplicated
CPT/HCPCS: 56405; 81003; 99283

== ENCOUNTER 2021-03-03 04:31 | Emergency (ER) | payer MEDICAID, SELFPAY ==
[2021-03-03 04:39] VITALS: BP 135/86; PULSE 65; RESP 20; TEMP 36.6; O2SAT 99; BMI 31.8
--- NOTE | 2021-03-03 04:59 | W.ED.GENADLT ---
HPI - General Adult General: Chief complaint: Dental/Oral Stated complaint: Toothache Time Seen by Provider: 03/03/21 04:55 History of Present Illness: HPI narrative: HPI: [35]yo patient w/ hx of dental caries x 18 days currently presenting to the ED concerns for dental pain x 6 days after finishing her course of abx. Patient tells me she has been unable to follow up with a dentist for a root canal given her insurance status and tight finance. Patient denies fever/chill, difficulty breathing, tongue/throat/ mouth swelling, hoarseness of voice, drooling, neck pain, or difficulty ranging the neck. Patient has been unable to follow up with a dentist currently. Onset: [18]days ago Duration: ongoing Location: home Severity: mild/moderate Review of Systems Narrative: Constitutional: No fever, no chills. HEENT: No vision changes, +dental pain CV: No chest pain, no palpitations PULM: No productive cough, no dyspnea. GI: No abdominal pain, no N/V/D. : No Dysuria MSKEL: No muscle pain SKIN: No new rashes, no lesions. NEURO: No headache, no focal weakness. HEME: No visible bruises PSYCH: Normal mood PFSH ED PFSH: Medical History (Updated 03/03/21 @ 04:58 by Angie Long MD) Chronic hand pain Environmental and seasonal allergies Vitamin B deficiency Surgical History History of section 2012 and 2014 History of hemorrhoidectomy History of surgery on arm right tendon repair 2017 History of tubal ligation Family History Father Cancer Bone and Lymphoma Other Heart disease Denies family history of Bleeding disorder Social History Smoking and tobacco status: current every day smoker cigarettes Packs smoked per day: 0.5 Second hand smoke exposure: Yes Smoking risk assessment/counseling performed?: Yes Alcohol intake: never Desire information about alcohol rehabilitation?: No Counseling given: No Desire information about substance/drug rehabilitation?: No Counseling given: No Adopted: No Caregiver/support person: No Lives independently: Yes Household members: spouse Housing: House Marital status: Number of children: 6 service: No Current occupational status: employed History of recent travel: No Current gender identity: Female Female Reproductive History: Date of last menstrual period: 02/11/21 Physical Exam Narrative: EXAM NARRATIVE: Head: Atraumatic Eyes: PERRL, conjunctiva without injection, eyes tracking ENT: Mucous membrane moist, +tooth 46 and 16 tenderness to palpation, no tooth subluxation, no no gumline swelling, no tongue protrusion or elevation, uvula midline, no tonsillar/peritonsillar swelling or erythema, no TMJ tenderness NECK: Supple without lymphadenopathy, ROM of the neck intact, no anterior neck tenderness to palpation ro swelling LUNGS: LCTAB CV: RRR ABDOMEN: Soft, nontender EXTREMITY: Normal ROM SKIN: No rash or erythema NEURO: Awake and alert. No focal weakness PSYCH: Cooperative mood and affect Course Vital Signs: Vital signs: Vital Signs Temperature 97.9 F 03/03/21 04:39 Pulse Rate 65 03/03/21 04:39 Respiratory Rate 20 H 03/03/21 04:39 Blood Pressure 135/86 03/03/21 04:39 Pulse Oximetry 99 03/03/21 04:39 MDM - General Adult MDM Narrative: Medical decision making narrative: [35]yo patient w/ hx of tooth infection x 18 days presenting dental pain x 6 days w/ tenderness to palpation over the tooth 46 and 16 concerning for dental caries. Patient is HDS, afebrile. No signs of airway compromise. Patient not immunosuppressed. No e/o tooth fracture, avulsion, or bleeding socket. No e/o RPA, BASIC ACOUSTIC ANALYST, Pamela?s angina, periapical abscess. No e/o gingival hyperplasia or concern for drug reaction. No signs of ANUG today on physical exam. Rx clindamycin 300 BID x 14 days. Patient is given floraster for concerns for diarrhea Patient is given strict return precautions for any signs of infection, pamela's angina, or other signs of infection. Disposition: Discharge. Patient counseled regarding diagnostic impression, treatment plan. Patient given ED strict return precautions to return for continuation, worsening, or development of new symptoms. Instructed to f/u w/ PCP and dentist regarding symptoms today. Patient verbalized understanding. Discharge Plan Discharge Patient Disposition: Home Clinical Impression: Pain, dental, Dental infection Condition: Stable Prescriptions: New clindamycin HCl 300 mg capsule 300 mg PO Q12H 14 Days Qty: 28 RF: 0 Florastor 250 mg capsule 250 mg PO Q12H 8 Days Qty: 16 RF: 0 No Action [id number] 3.5-10,000-1 mg/mL-unit/mL-% drops,suspension 4 drp otic (ear) Q8H 10 Days Qty: 10 RF: 0 dexamethasone 6 mg tablet 6 mg PO DAILY 5 Days Qty: 5 RF: 0 ropinirole 0.5 mg tablet 0.5 mg PO .AT BEDTIME 90 Days Qty: 90 RF: 0 citalopram 20 mg tablet 20 mg PO DAILY@0900 Qty: 90 RF: 0 omeprazole 40 mg capsule,delayed release(DR/EC) 40 mg PO DAILY@0900 RF: 0 methocarbamol 750 mg tablet 750 mg PO Q6H Qty: 10 RF: 0 hydrocodone-acetaminophen 5-325 mg tablet 1 tab PO Q8H PRN (Reason: pain (scale score 7-10)) Qty: 5 RF: 0 Discharge Orders: Discharge ED (Routine); Ordered 03/03/21 Ordered By: Angie Long Discharge Diet: Advance as tolerated Discharge Activity: Resume usual activity Patient Instructions: Toothache (ED) Activity Restrictions/Additional Instructions: Take your antibiotics as instructed. Come back to the emergency room and then if there is any worsening facial swelling. Coding Level of Care Code ED Pilot Plant Research Technician for [place] [facility]
[2021-03-03] MEDS: clindamycin 150 mg Capsule 300 MG PO (05:22)
[2021-03-03 05:23] VITALS: BP 156/87; PULSE 87; RESP 18; O2SAT 98
--- NOTE | 2021-03-03 14:38 | DCPLANNER ---
title manager had message to speak with patient about a getting a dentist. title manager spoke with patient, she stated that she is to call a dentist in [facility] tomorrow, to see if she can get worked in, that accepts adult medicaid.
== END 2021-03-03 05:25 | disposition home or self-care (01) ==
PROVIDERS: Emergency Provider Emergency Medicine
DX: K04.7 Periapical abscess without sinus (principal); F17.210 Nicotine dependence, cigarettes, uncomplicated
CPT/HCPCS: 99283

== ENCOUNTER → 2022-03-12 10:58 | Outpatient (BNVA) | payer MEDICAID, SELFPAY | PROVIDERS: PCP Family Medicine; Visit Provider Nurse Practitioner Family | DX: R50.9 Fever, unspecified (principal); J98.8 Other specified respiratory disorders | CPT/HCPCS: 87400; 87426 ==

== ENCOUNTER 2022-05-05 10:58 | Emergency (ER) | payer MEDICAID, SELFPAY ==
[2022-05-05 11:03] VITALS: BP 115/80; PULSE 69; RESP 17; TEMP 36.9; O2SAT 96; BMI 32.5
--- NOTE | 2022-05-05 11:17 | ED_ITS ---
HPI - Back Pain/Injury General: Chief Complaint: Back Pain/Injury Stated Complaint: back pain Time Seen by Provider: 05/05/22 11:11 Source: patient Mode of arrival: ambulatory Limitations: no limitations History of Present Illness: Patient is a 36-year-old female presents to ED today with a complaint of neck and back pain. Patient states she has had pain intermittently for years . He has been seen her primary care provider Dr. Capellan as well as [facility] ED PFSH: Medical History Chronic hand pain Environmental and seasonal allergies Psychiatric care Vitamin B deficiency Surgical History History of section 2012 and 2014 History of hemorrhoidectomy History of surgery on arm right tendon repair 2017 History of tubal ligation Family History Father Cancer Bone and Lymphoma Other Heart disease Denies family history of Bleeding disorder Social History Smoking and tobacco status: current every day smoker cigarettes Packs smoked per day: 0.5 Years cigarettes smoked: 20 Quit status (tobacco): has tried quititng Number of times tried to quit tobacco: 1 Second hand smoke exposure: No Smoking risk assessment/counseling performed?: No Alcohol intake: never Desire information about alcohol rehabilitation?: No Counseling given: No Desire information about substance/drug rehabilitation?: No Counseling given: No Adopted: No Caregiver/support person: No Lives independently: Yes Household members: spouse Housing: House Marital status: Number of children: 6 service: No Current occupational status: employed History of recent travel: No Current gender identity: Female Female Reproductive History: Date of last menstrual period: 02/11/21 Course Vital Signs: Vital signs: Vital Signs Temperature 98.5 F 05/05/22 11:03 Pulse Rate 69 05/05/22 11:03 Respiratory Rate 17 05/05/22 11:03 Blood Pressure 115/80 05/05/22 11:03 Pulse Oximetry 96 05/05/22 11:03 Oxygen Delivery Me thod 05/05/22 11:03 Discharge Plan Discharge Patient Disposition: Home Clinical Impression: Cervical radicular pain Condition: Stable Prescriptions: New methocarbamol 500 mg tablet 1,000 mg PO Q8H Qty: 30 0RF Medrol (Manuel) 4 mg tablets,dose pack See Rx Instructions .ROUTE .COMPLEX Qty: 21 0RF Rx Instructions: orally per package directions No Action doxycycline hyclate 100 mg capsule 100 mg PO BID Qty: 20 0RF fluconazole 150 mg tablet 150 mg PO Q3D Qty: 2 0RF gabapentin 100 mg capsule See Rx Instructions .ROUTE .COMPLEX Qty: 30 5RF Dose Instruction: TAKE ONE CAPSULE BY MOUTH DAILY in THE evening Rx Instructions: TAKE ONE CAPSULE BY MOUTH DAILY in THE evening meloxicam 7.5 mg tablet See Rx Instructions .ROUTE .COMPLEX Qty: 30 5RF Dose Instruction: TAKE ONE TABLET BY MOUTH DAILY FOR arm pain/inflammation Rx Instructions: TAKE ONE TABLET BY MOUTH DAILY FOR arm pain/inflammation hydrocodone-acetaminophen 5-325 mg tablet 1 tab PO BID PRN (Reason: severe pain) 30 Days Qty: 60 0RF Rx Instructions: for severe arm pain citalopram [Celexa] 40 mg tablet 40 mg PO DAILY Qty: 30 1RF Discharge Orders: Discharge ED (Routine); Ordered 05/05/22 Ordered By: Ginette Arellano Referrals: Renny Rosas DO [Primary Care Provider] - Coding Level of Care Code ED 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
[2022-05-05] MEDS: dexamethasone 10 mg/mL INJ 8 MG IM (11:41)
[2022-05-05] MEDS: orphenadrine 30 mg/mL Inj 2 mL 60 MG IM (11:41)
[2022-05-05] MEDS: ketorolac 60 mg/2 mL INJ IM (11:41)
--- NOTE | 2022-05-05 11:58 | ED_ITS ---
HPI - Neck Pain/Injury General: Chief Complaint: Back Pain/Injury Stated Complaint: back pain Time Seen by Provider: 05/05/22 11:11 Source: patient Mode of arrival: ambulatory Limitations: no limitations History of Present Illness: Patient is a 36-year-old female presents to ED today with a complaint of neck and back pain. Patient states she has had pain intermittently for years . He has been seen her primary care provider Dr. Rosas as well as seeing a chiropractor. Patient states PCP recently ordered a cervical MRI but the insurance denied. States she was told to come to the ED. Patient states her pain seems to radiate into her bilateral arms but does not endorse any numbness, tingling, loss of sensation, or weakness. MD complaint: neck pain Onset (ago): year(s) Radiation: right lateral, left lateral, right shoulder and left shoulder Severity: moderate Duration: constant Exacerbating factors: movement of extremity and movement of neck Associated symptoms: Reports no associated symptoms; Denies headache(s) Review of Systems Const: Denies: fever(s), chills, body aches, fatigue or malaise Card: Denies: chest pain Resp: Denies: dyspnea GI: Denies: abdominal pain Musc: Reports: neck pain and back pain; Denies: extremity pain, extremity swelling, joint pain, joint swelling or joint redness Skin/Breast: Denies: rash Neuro: Denies: headache(s), numbness in extremities, weakness in extremities or sensory changes COUNT INCLUDES THE [facility] ED PFSH: Medical History Chronic hand pain Environmental and seasonal allergies Psychiatric care Vitamin B deficiency Surgical History History of section 2013 and 2014 History of hemorrhoidectomy History of surgery on arm right tendon repair 2017 History of tubal ligation Family History Father Cancer Bone and Lymphoma Other Heart disease Denies family history of Bleeding disorder Social History Smoking and tobacco status: current every day smoker cigarettes Packs smoked per day: 0.5 Years cigarettes smoked: 20 Quit status (tobacco): has tried quititng Number of times tried to quit tobacco: 1 Second hand smoke exposure: No Smoking risk assessment/counseling performed?: No Alcohol intake: never Desire information about alcohol rehabilitation?: No Counseling given: No Desire information about substance/drug rehabilitation?: No Counseling given: No Adopted: No Caregiver/support person: No Lives independently: Yes Household members: spouse Housing: House Marital status: Number of children: 6 service: No Current occupational status: employed History of recent travel: No Current gender identity: Female Female Reproductive History: Date of last menstrual period: 02/11/21 Physical Exam Const: COMMON NORMALS: no acute distress, average body habitus, no limitations, alert and well nourished HENMT: COMMON NORMALS: normocephalic and atraumatic HEAD & SCALP: normal to inspection, normocephalic and atraumatic Neck/C-Spine: COMMON NORMALS: full ROM, no lymphadenopathy and no meningeal signs GENERAL: Yes normal visual inspection, No anterior neck swelling and No submandibular swelling CERVICAL SPINE: Yes pain with cervical ROM, No Cervical spine tenderness, No step off deformity and Yes Paracervical muscle tenderness Back/Pelvis: BACK IMAGE (FEMALE): 1. diffusely tender Extremity: COMMON NORMALS: normal to inspection and full ROM GENERAL: Yes normal exam except as noted Neuro: COMMON NORMALS: moves all extremities, no focal motor deficits and no sensory deficits noted SENSORIUM/ORIENTATION: Yes alert MENINGEAL SIGNS: Yes no meningeal signs MOTOR EXAM: 5/5 motor strength present throughout Course Vital Signs: Vital signs: Vital Signs Temperature 98.5 F 05/05/22 11:03 Pulse Rate 69 05/05/22 11:03 Respiratory Rate 17 05/05/22 11:03 Blood Pressure 115/80 05/05/22 11:03 Pulse Oximetry 96 05/05/22 11:03 Oxygen Delivery Me thod 05/05/22 11:03 MDM - Neck Pain/Injury Medical Decision Making This seems to be an ongoing problem for patient. States symptoms have waxed and waned over several years although it is progressively worsening. Patient does not have any red flags noted on history. I do not appreciate any neurologic compromise on her physical exam. I agree with decision for MRI imaging although this does not need to be completed on an emergency/stat basis. Recommend she continue to follow-up with primary care. We will place her on steroids and muscle relaxers to see if this provides her any discomfort relief. Discharge Plan Discharge Patient Disposition: Home Clinical Impression: Cervical radicular pain Condition: Stable Prescriptions: New methocarbamol 500 mg tablet 1,000 mg PO Q8H Qty: 30 0RF Medrol (Manuel) 4 mg tablets,dose pack See Rx Instructions .ROUTE .COMPLEX Qty: 21 0RF Rx Instructions: orally per package directions No Action doxycycline hyclate 100 mg capsule 100 mg PO BID Qty: 20 0RF fluconazole 150 mg tablet 150 mg PO Q3D Qty: 2 0RF gabapentin 100 mg capsule See Rx Instructions .ROUTE .COMPLEX Qty: 30 5RF Dose Instruction: TAKE ONE CAPSULE BY MOUTH DAILY in THE evening Rx Instructions: TAKE ONE CAPSULE BY MOUTH DAILY in THE evening meloxicam 7.5 mg tablet See Rx Instructions .ROUTE .COMPLEX Qty: 30 5RF Dose Instruction: TAKE ONE TABLET BY MOUTH DAILY FOR arm pain/inflammation Rx Instructions: TAKE ONE TABLET BY MOUTH DAILY FOR arm pain/inflammation hydrocodone-acetaminophen 5-325 mg tablet 1 tab PO BID PRN (Reason: severe pain) 30 Days Qty: 60 0RF Rx Instructions: for severe arm pain citalopram [Celexa] 40 mg tablet 40 mg PO DAILY Qty: 30 1RF Discharge Orders: Discharge ED (Routine); Ordered 05/05/22 Ordered By: Ginette Arellano Referrals: Renny Rosas DO [Primary Care Provider] - Coding Level of Care Code ED 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
== END 2022-05-05 11:45 | disposition home or self-care (01) ==
PROVIDERS: Emergency Provider Physician Assistant; PCP Family Medicine
DX: M54.12 Radiculopathy, cervical region (principal); F17.210 Nicotine dependence, cigarettes, uncomplicated
CPT/HCPCS: 96372; 99285; J1100; J1885; J2360

== ENCOUNTER → 2022-06-08 10:28 | Outpatient (BNVA) | payer MEDICAID, SELFPAY | PROVIDERS: PCP Family Medicine; Referring Provider Family Medicine; Visit Provider Physician Assistant | DX: M54.12 Radiculopathy, cervical region (principal) | CPT/HCPCS: 72050 ==

== ENCOUNTER 2022-10-13 12:48 | Outpatient (CLI) | payer MEDICAID, SELFPAY ==
--- NOTE | 2022-10-13 13:00 | MR_ITS ---
WS: [id number] MRI CERVICAL SPINE NONCONTRAST TECHNIQUE: Sagittal T1, T2 and STIR imaging. Axial T2, gradient, and fiesta imaging. Gadolinium was a dministered but no post gadolinium imaging was obtained due to contrast reaction. See comments below. CLINICAL INFORMATION: R29.90 - Unspecified symptoms and signs involving the ner... FINDINGS: Straightening of the normal cervical lordosis. Mild disc bulging worse at C4-C5 and C6-C7. Cord signa l is normal. C2-C3: Normal. C3-C4: Mild facet arthropathy. Spinal canal and foramen are patent. C4-C5: Mild disc bulge with a tiny central protrusion. Mild facet arthropathy. Spinal canal and jeremi en are patent. C5-C6: No significant disc bulging. Mild facet arthropathy. Mild RIGHT C5-C6 bony foraminal narrowing . Spinal canal is patent. C6-C7: Tiny central protrusion.Moderate LEFT and no significant RIGHT foraminal narrowing. Spinal can al is patent. Mild facet arthropathy. C7-T1: No significant disc bulging. Spinal canal and foramen are patent. Visualized brain stem structures: Normal. Prevertebral soft tissues: Normal. MR/MR cervical spin wo con* [id number] IMPRESSION: 1. Straightening of the normal cervical lordosis. Cord signal is normal. 2. LEFT eccentric disc osteophyte complex with moderate LEFT bony foraminal na rrowing C6-C7. Recommend correlation for LEFT C7 nerve root symptoms. 3. Mild RIGHT C5-C6 bony foraminal narrowing. 4. Tiny central protrusion C4-C5. 5. Mild to moderate facet arthropathy worse at LEFT C3-C4, bilateral C4-C5, an d bilateral C5-C6 * After administration of gadolinium, patient experienced immediate contrast r eaction with hives and difficulty breathing. Rapid response was called and villa ent transferred to the ER for further assessment. Recommend contrast not be adm inistered in the future including CT and MRI contrast unless absolutely necessa ry for medical care. If contrast is required, recommend premedication protocol with imaging performed in a hospital setting
== END 2022-10-13 12:49 | disposition home or self-care (01) ==
PROVIDERS: PCP Family Medicine; Visit Provider Psychiatry & Neurology Neurology
DX: M25.78 Osteophyte, vertebrae (principal); M48.02 Spinal stenosis, cervical region; M47.812 Spondylosis without myelopathy or radiculopathy, cervical region
CPT/HCPCS: 72141

== ENCOUNTER 2022-10-13 14:07 | Emergency (ER) | payer MEDICAID, SELFPAY ==
[2022-10-13] MEDS: LORazepam 2 mg/mL INJ 1 mL 1 MG IVP (14:17)
[2022-10-13] MEDS: hydrocortisone 100 mg/2 mL SDV IVP (14:18)
--- NOTE | 2022-10-13 14:18 | ED_ITS ---
HPI - General Adult General: Chief complaint: Allergic Reaction Stated complaint: Allergic Reaction Time Seen by Provider: 10/13/22 14:09 Source: patient Mode of arrival: ambulatory Limitations: no limitations History of Present Illness: 37-year-old female states she has a contrast allergy she was getting MRI with contrast read for the postcontrast she started feeling like she is short of breath like her heart was racing and she could not breathe. Patient appears quite anxious here blood pressure is a normal pulse ox is normal denies any worsening proving factors. Associated symptoms: Reports dyspnea; Deny chest pain, headache(s), nausea, rash or vomiting Review of Systems Const: Denies: fever(s), chills, body aches or change in appetite Eyes: Denies: blurry vision or eye discomfort ENMT: Denies: throat pain or dental pain Card: Denies: chest pain Resp: Reports: dyspnea GI: Denies: abdominal pain, nausea, vomiting or diarrhea Musc: Denies: neck pain or back pain Skin/Breast: Denies: rash Neuro: Denies: headache(s) PFSH ED PFSH: Medical History Chronic hand pain Environmental and seasonal allergies Psychiatric care Vitamin B deficiency Surgical History History of section 2012 and 2014 History of hemorrhoidectomy History of surgery on arm right tendon repair 2017 History of tubal ligation Family History Father Cancer Bone and Lymphoma Other Heart disease Denies family history of Bleeding disorder Social History Smoking and tobacco status: current every day smoker cigarettes Packs smoked per day: 0.5 Years cigarettes smoked: 20 Quit status (tobacco): has tried quititng Number of times tried to quit tobacco: 1 Second hand smoke exposure: No Smoking risk assessment/counseling performed?: No Alcohol intake: never Desire information about alcohol rehabilitation?: No Counseling given: No Substance/Drug Use: former Date of last use: Marijuana - teen. Desire information about substance/drug rehabilitation?: No Counseling given: No Adopted: No Caregiver/support person: No Lives independently: Yes Household members: spouse Housing: House Marital status: Number of children: 6 service: No Current occupational status: employed Do you think of yourself as: Straight/Heterosexual Current gender identity: Female Physical Exam Const: COMMON NORMALS: patient oriented x3 HENMT: COMMON NORMALS: normocephalic and atraumatic HEAD & SCALP: normocephalic and atraumatic Neck/C-Spine: COMMON NORMALS: full ROM and supple Chest: COMMONS NORMALS: normal inspection of the chest and normal palpation of entire chest wall Resp: COMMON NORMALS: normal respiratory effort, No retractions, No use of accessory muscles and clear to auscultation bilaterally AUSCULTATION: clear to auscultation bilaterally Cardio: COMMON NORMALS: regular rate, regular rhythm and No murmurs present (Cardio) RATE: regular rate RHYTHM: regular rhythm GI: COMMON NORMALS: Normal to inspection, nondistended, normoactive bowel sounds present, Soft to palpation, non-tender and no masses PALPATION: Yes Soft to palpation Extremity: COMMON NORMALS: normal to inspection and full ROM Neuro: COMMON NORMALS: patient oriented x3, moves all extremities and no focal motor deficits Psych: COMMON NORMALS: mental status grossly normal, Normal thought process present and cooperative THOUGHT PROCESS: Normal thought process present OTHER: extremely anxious Skin: COMMON NORMALS: no rashes or lesions noted and no wounds GENERAL SKIN EXAM: no rashes or lesions noted Course Vital Signs: Vital signs: Vital Signs Pulse Rate 65 10/13/22 15:01 Respiratory Rate 15 10/13/22 16:02 Blood Pressure 118/74 10/13/22 15:01 Pulse Oximetry 98 10/13/22 16:02 Oxygen Delivery Me thod Room Air 10/13/22 15:01 MDM - General Adult Medical Decision Making Patient presents with an allergic reaction likely to contrast dye she has been well-appearing here she has been in no distress no signs of anaphylaxis blood pressures been normal she feels much improved here believe she had some anxiety as well she is stable for discharge she is to follow-up with PCP and return if worsening. Medical Records I reviewed the patient's medical records. Lab Data Radiology Impressions Chest X-Ray 10/13/22 14:38 IMPRESSION: Unremarkable chest radiograph. EKG Data EKG 1: I personally reviewed and interpreted this EKG as follows: EKG interpretation date: 10/13/22 EKG interpretation time: 14:45 Interpretation: sinus celia hr [address] or t wave abnormalities qrs 94 qtc 425 Computer generated interpretation: Chest X-Ray 10/13/22 14:38 IMPRESSION: Unremarkable chest radiograph. Discharge Plan Discharge Patient Disposition: Home Clinical Impression: Allergic reaction Condition: Stable Prescriptions: No Action hydrocodone-acetaminophen 5-325 mg tablet 0.5 tab PO BID PRN (Reason: Pain) Vitamin B-12 1,000 mcg Tablet 1,000 mcg PO QAM Celexa 40 mg tablet 40 mg PO QAM Discharge Orders: Discharge ED (Routine); Ordered 10/13/22 Ordered By: Anisha Amin Referrals: Renny Rosas DO [Primary Care Provider] - 1-3 days Discharge Diet: Advance as tolerated Discharge Activity: Resume usual activity Patient Instructions: General Allergic Reaction (ED) Coding Level of Care Code ED Well Service 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
[2022-10-13] MEDS: sodium chloride 0.9% 1,000 ML 999 ML IV (14:24)
[2022-10-13] MEDS: famotidine 20 mg/2 mL INJ 40 MG IVP (14:24)
[2022-10-13 14:28] VITALS: BMI 32.9
[2022-10-13 14:32] VITALS: BP 114/84; PULSE 69; RESP 25; O2SAT 100
--- NOTE | 2022-10-13 14:38 | XR_ITS ---
WS: [id number] Exam: XR chest 1V portable [id number] Date/Time of Exam: 10/13/2022 2:40 PM Reason For Exam: cp Comparison 04/27/2016. Findings: The lungs are clear and fully expanded. Costophrenic angles are sharp. No infiltrates. Bronchovascula r relief appears normal. Cardiac silhouette is unremarkable. Bony elements are intact. XR/XR chest 1V portable [id number] IMPRESSION: Unremarkable chest radiograph.
--- NOTE | 2022-10-13 14:41 | PC.PHAR ---
pt states she takes care of her own medications-pt states she is still taking celexa 40mg qam ext shows last filled 06/08/22 30d/s-ext shows last filled 05/25/22 30d/s norco 5/325mg 1 tab bid pt states she is taking 1/2 tab bid prn till she gets in the pain clinic
--- NOTE | 2022-10-13 14:45 | ECG_ITS ---
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 Measurements Intervals [place] Rate: 59 P: 65 GA: 153 QRS: 45 QRSD: 94 T: 43 QT: 426 QTc: 423 Interpretive Statements SINUS BRADYCARDIA Compared to ECG 09/02/2016 15:09:30 Sinus rhythm no longer present Sinus arrhythmia no longer present Electronically Signed On 10-14-2022 10:09:30 CDT by Ariel Cueto M.D. [id number]
[2022-10-13 15:01] VITALS: BP 118/74; PULSE 65; RESP 13; O2SAT 97
--- NOTE | 2022-10-13 15:08 | PC.NURSE ---
pt has calmed down and respirations and slowed. holding Jose Cruz CONNELLY approved
[2022-10-13 16:02] VITALS: RESP 15; O2SAT 98
[2022-10-13] MEDS: morphine 4 mg/mL SDV 1 mL IVP (16:02)
[2022-10-13 16:10] VITALS: BP 142/75; PULSE 58; RESP 16; O2SAT 100
== END 2022-10-13 16:13 | disposition home or self-care (01) ==
PROVIDERS: Emergency Provider Emergency Medicine; PCP Family Medicine
DX: T50.8X5A Adverse effect of diagnostic agents, initial encounter (principal); F17.210 Nicotine dependence, cigarettes, uncomplicated
CPT/HCPCS: 71045; 93005; 96374; 96375; 99284; J1720; J2060; J2270; J3490; J7030

== ENCOUNTER 2022-11-01 05:00 | Emergency (ER) | payer MEDICAID, SELFPAY ==
[2022-11-01 05:08] VITALS: BP 150/81; PULSE 79; RESP 20; TEMP 36.8; O2SAT 97; BMI 31.1
[2022-11-01] MEDS: dexamethasone 10 mg/mL INJ IVP (05:33)
[2022-11-01] MEDS: famotidine 20 mg/2 mL INJ IVP (05:37)
[2022-11-01] MEDS: hyDROXYzine 25 mg Capsule PO (05:39)
[2022-11-01] MEDS: sodium chloride 0.9% 500 ML IV (05:43)
[2022-11-01] MEDS: ondansetron 2 mg/ML SDV 2 mL 4 MG IVP (06:11)
[2022-11-01 06:16] VITALS: RESP 16
[2022-11-01] MEDS: morphine 4 mg/mL SDV 1 mL IVP (06:16)
[2022-11-01] MEDS: ketorolac 30 mg/mL INJ 15 MG IVP (06:16)
[2022-11-01 06:31] VITALS: BP 123/85; PULSE 64; RESP 16; TEMP 36.8; O2SAT 99
[2022-11-01 06:33] VITALS: BP 123/85; PULSE 64; RESP 16; TEMP 36.8; O2SAT 99
--- NOTE | 2022-11-02 15:28 | W.ED.GENADLT ---
HPI - General Adult General: Chief complaint: General Medical Stated complaint: Stung by a Wasp Time Seen by Provider: 11/01/22 05:09 Source: patient History of Present Illness: 37 year old female who was stung multiple times by Wasps in the left upper extremity. She has significant swelling and pain to the extremity. It is itchy as well. Pain had not improved by this morning, so she comes in for evaluation and treatment. Onset (ago): hour(s) Location: left and upper extremity Radiation: non-radiation Severity: moderate Quality: burning and stabbing Pain Consistency: constant Associated symptoms: Reports nausea; Deny chest pain, diaphoresis, dyspnea, fevers/chills, headache(s), short of breath, vomiting or weakness Review of Systems Const: Denies: fever(s) or diaphoresis ENMT: Denies: throat pain Card: Denies: chest pain Resp: Denies: dyspnea GI: Reports: nausea; Denies: vomiting Neuro: Denies: headache(s) PFS ED PFSH: Medical History Chronic hand pain Environmental and seasonal allergies Psychiatric care Vitamin B deficiency Surgical History History of section 2012 and 2014 History of hemorrhoidectomy History of surgery on arm right tendon repair 2017 History of tubal ligation Family History Father Cancer Bone and Lymphoma Other Heart disease Denies family history of Bleeding disorder Social History Smoking and tobacco status: current every day smoker cigarettes Packs smoked per day: 0.5 Years cigarettes smoked: 20 Quit status (tobacco): has tried quititng Number of times tried to quit tobacco: 1 Second hand smoke exposure: No Smoking risk assessment/counseling performed?: No Alcohol intake: never Desire information about alcohol rehabilitation?: No Counseling given: No Substance/Drug Use: former Date of last use: Marijuana - teen. Desire information about substance/drug rehabilitation?: No Counseling given: No Adopted: No Caregiver/support person: No Lives independently: Yes Household members: spouse Housing: House Marital status: Number of children: 6 service: No Current occupational status: employed Do you think of yourself as: Straight/Heterosexual Current gender identity: Female Physical Exam Const: COMMON NORMALS: no acute distress GENERAL APPEARANCE: cooperative; not ill appearing and not frail appearing HENMT: COMMON NORMALS: normocephalic, atraumatic and Normal external nose present HEAD & SCALP: normocephalic and atraumatic FACE & SINUS: normal facial exam and face symmetric NOSE: Normal external nose present Eye: COMMON NORMALS: Equal, round and reactive pupils present and EOMs intact bilaterally PUPIL: Yes Equal, round and reactive pupils present Neck/C-Spine: GENERAL: Yes trachea midline Chest: CHEST: Yes Symmetrical chest wall rise Resp: COMMON NORMALS: normal respiratory effort, No retractions, No use of accessory muscles and clear to auscultation bilaterally AUSCULTATION: clear to auscultation bilaterally Cardio: COMMON NORMALS: regular rate and regular rhythm RATE: regular rate RHYTHM: regular rhythm GI: COMMON NORMALS: Normal to inspection, nondistended, normoactive bowel sounds present Extremity: COMMON NORMALS: no pedal edema NARRATIVE EXTREMITY EXAM: Examination of the left upper extremity reveals significant swelling from the elbow into the hand. There is mild redness. There is mild warmth. Stings are noted to the hand, and wrist. No streaking lymphangitis. Patient can fully extend and flex her fingers passively and actively. Pulses and sensation My dad Yepare normal. No signs of compartment syndrome. Neuro: WALKER COMA SCALE: document GCS findings [place] coma scale eye opening: Spontaneous [place] coma scale verbal response: Orientated Walker coma scale motor response: Obey commands [place] coma scale total score: 15 SENSORY EXAM: Yes extremities (intact) Psych: COMMON NORMALS: speech normal SPEECH: Yes normal speech Skin: COMMON NORMALS: no rashes or lesions noted GENERAL SKIN EXAM: no rashes or lesions noted Course Vital Signs: Vital signs: Vital Signs Temperature 98.3 F 11/01/22 06:33 Pulse Rate 64 11/01/22 06:33 Respiratory Rate 16 11/01/22 06:33 Blood Pressure 123/85 11/01/22 06:33 Pulse Oximetry 99 11/01/22 06:33 Oxygen Delivery Me thod Room Air 11/01/22 06:31 MDM - General Adult Medical Decision Making Swelling is beginning to improve following administration of dexamethasone, and atarax. Benadryl was not given due to patient intolerance. She also received IV Pepcid. She?ll be allowed home. Discharge Plan Discharge Patient Disposition: Home Clinical Impression: Insect sting Condition: Stable Prescriptions: New Pepcid 20 mg tablet 20 mg PO BID Qty: 10 0RF Zyrtec 10 mg capsule 10 mg PO DAILY Qty: 10 0RF No Action hydrocodone-acetaminophen 5-325 mg tablet 0.5 tab PO BID PRN (Reason: Pain) Vitamin B-12 1,000 mcg Tablet 1,000 mcg PO QAM Celexa 40 mg tablet 40 mg PO QAM Discharge Orders: Discharge ED (Routine); Ordered 11/01/22 Ordered By: Kurt Trujillo Referrals: Renny Rosas, [Primary Care Provider] - 1-3 days Patient Instructions: Insect Bite or Sting (ED), Opioid Safety, Pain Management Activity Restrictions/Additional Instructions: Return for worsening symptoms, especially swelling, or any trouble breathing, etc. Medications as directed. 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
== END 2022-11-01 06:36 | disposition home or self-care (01) ==
PROVIDERS: Emergency Provider Emergency Medicine; PCP Family Medicine
DX: T63.461A Toxic effect of venom of wasps, accidental (unintentional), initial encounter (principal); F17.210 Nicotine dependence, cigarettes, uncomplicated
CPT/HCPCS: 96374; 96375; 99284; J1100; J1885; J2270; J2405; J3490; J7040

== ENCOUNTER 2022-12-06 16:03 | Outpatient (CLI) | payer MEDICAID, SELFPAY ==
--- NOTE | 2022-12-06 16:00 | MR_ITS ---
WS: [id number] MRI RIGHT SHOULDER HISTORY: M25.511 - Pain in right shoulder COMPARISON: None available. TECHNIQUE: Multiplanar sequences of the shoulder joint are submitted. Mild AC joint arthritis. Small osteophytes with minimal encroachment upon the supraspinatus. Small os teophyte from the undersurface of the acromion. No significant subacromial impingement. No fluid in t he subacromial or subdeltoid bursa. Biceps tendon is in normal position. No os acromion. No rotator cuff muscle atrophy or edema. Mild tendinopathy in the distal supraspinatus tendon. No ful l-thickness tear is identified. No joint effusion. No labral tear identified. There is a mild increas ed T2 signal in the posterior labrum which is probably intrasubstance degeneration. No full-thickness tear. IMPRESSION: 1. Mild AC joint arthritis. 2. Very minimal subacromial impingement. 3. No rotator cuff tear or muscle atrophy.
== END 2022-12-06 16:04 | disposition home or self-care (01) ==
LOC: RAD 16:05
PROVIDERS: PCP Family Medicine; Visit Provider Psychiatry & Neurology Neurology
DX: M19.011 Primary osteoarthritis, right shoulder (principal)
CPT/HCPCS: 73221

== ENCOUNTER 2023-02-07 21:36 | Emergency (ER) | payer MEDICAID, SELFPAY ==
[2023-02-07 21:47] VITALS: BP 124/81; PULSE 64; RESP 16; TEMP 36.7; O2SAT 98; BMI 31.1
--- NOTE | 2023-02-07 21:52 | W.ED.FEMALGU ---
HPI - Female Genitourinary General: Chief complaint: Urogenital-Female Stated complaint: groin abcess Time Seen by Provider: 02/07/23 21:42 History of Present Illness: 37-year-old female comes in today with tenderness to the left labia. Patient reports for the last 3 days she has felt a 2 knots in the left labia and was concerned she may need to have it drained. Patient reports some increased swelling to the area today. Patient denies fever. Patient appears nontoxic. Patient appears in mild to moderate pain. Review of Systems General: Reports: 10 or more systems reviewed and unremarkable except in HPI and below Skin/Breast: Reports: new lesions PFSH ED PFSH: Medical History (Updated 02/07/23 @ 22:06 by MICHAEL Soto) Chronic hand pain Environmental and seasonal allergies Vitamin B deficiency Surgical History History of section 2012 and 2014 History of hemorrhoidectomy History of surgery on arm right tendon repair 2017 History of tubal ligation Family History Father Cancer Bone and Lymphoma Other Heart disease Denies family history of Bleeding disorder Social History Smoking and tobacco/nicotine status: current every day tobacco/nicotine user cigarettes Packs smoked per day: 0.5 Years cigarettes smoked: 20 Quit status (tobacco/nicotine): has tried quititng Number of times tried to quit tobacco: 1 Second hand smoke exposure: No Alcohol intake: never Substance/Drug Use: former Date of last use: Marijuana - teen. Adopted: No Caregiver/support person: No Lives independently: Yes Household members: spouse Housing: House Marital status: Number of children: 6 service: No Current occupational status: employed Do you think of yourself as: Straight/Heterosexual Current gender identity: Female Physical Exam Const: COMMON NORMALS: alert HENMT: COMMON NORMALS: normocephalic HEAD & SCALP: normocephalic Eye: COMMON NORMALS: Equal, round and reactive pupils present and EOMs intact bilaterally PUPIL: Yes Equal, round and reactive pupils present Neck/C-Spine: COMMON NORMALS: full ROM Resp: COMMON NORMALS: normal respiratory effort Cardio: COMMON NORMALS: regular rate RATE: regular rate GI: COMMON NORMALS: Soft to palpation; negative for non-tender PALPATION: Yes Soft to palpation : EXTERNAL FEMALE EXAM: Yes externally tender, Yes external swelling (Minimal) and Yes lesion (2 inflamed follicles) Extremity: COMMON NORMALS: normal to inspection Neuro: SENSORIUM/ORIENTATION: Yes alert Skin: LESIONS: lesion noted (2 inflamed hair follicles left labia) Course Vital Signs: Vital signs: Vital Signs Temperature 98.1 F 02/07/23 21:47 Pulse Rate 64 02/07/23 21:47 Respiratory Rate 16 02/07/23 21:47 Blood Pressure 124/81 02/07/23 21:47 Pulse Oximetry 98 02/07/23 21:47 Oxygen Delivery Me thod Room Air 02/07/23 21:47 MDM - Female Medical Decision Making 37-year-old female comes in today with concerns of 2 inflamed follicles to the left labia fold. Patient does have a history of abscess in the same area. Patient reports for the last 3 days she has had symptoms. Patient appears nontoxic. Patient denies fever. On exam we note 2 crusted lesions to the left labia with some mild tenderness. Differential diagnosis includes genital herpes, folliculitis, herpes zoster, abscess. Reviewed exam with patient we will treat for folliculitis. Patient reported understanding and agreed to plan. No radiology studies performed this visit Discharge Plan Discharge Patient Disposition: Home Clinical Impression: Folliculitis Condition: Stable Prescriptions: New doxycycline hyclate 100 mg tablet 100 mg PO BID 7 Days Qty: 14 0RF mupirocin 2 % ointment 1 applic topical BID Qty: 22 0RF hydrocodone-acetaminophen 5-325 mg tablet 1 tab PO Q8H PRN (Reason: pain (scale score 7-10)) Qty: 5 0RF No Action Zyrtec 10 mg capsule 10 mg PO DAILY Qty: 30 5RF famotidine [Pepcid] 40 mg tablet 40 mg PO DAILY Qty: 30 5RF epinephrine [EpiPen] 0.3 mg/0.3 mL auto-injector 0.3 mg IM Q4H PRN (Reason: anaphylaxis) Qty: 2 1RF prednisone 20 mg tablet 20 mg PO DAILY Qty: 15 0RF Rx Instructions: Take 60 mg daily for days 1, 2, 3 Take 40 mg daily for days 4, 5 Take 20 mg daily for days 6, 7 Vitamin B-12 1,000 mcg Tablet 1,000 mcg PO QAM Celexa 40 mg tablet 40 mg PO QAM Discharge Orders: Discharge ED (Routine); Ordered 02/07/23 Ordered By: Dewey Mera Referrals: Renny Rosas DO [Primary Care Provider] - Discharge Diet: Usual diet Discharge Activity: Increase activity as tolerated Patient Instructions: Folliculitis (ED) Activity Restrictions/Additional Instructions: Do not pick at the lesions. Continue with ice and heat for comfort. Apply antibiotic ointment to each of the lesions until healed. Take oral antibiotic twice a day for 7 days. Follow-up with primary care in 2 to 3 days for recheck. Return to ER for worsening symptoms such as increased swelling of the labia, fever greater than 100.4, or new concerns. 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
[2023-02-07 22:23] VITALS: BP 122/74; PULSE 67; RESP 16; O2SAT 98
[2023-02-07] MEDS: HYDROcodone-acetaminophen 5-325 mg Tablet 1 TAB PO (22:23)
[2023-02-07] MEDS: doxycycline 100 mg Tablet PO (22:23)
== END 2023-02-07 22:25 | disposition home or self-care (01) ==
PROVIDERS: Emergency Provider Nurse Practitioner Family; PCP Family Medicine
DX: L73.9 Follicular disorder, unspecified (principal); F17.210 Nicotine dependence, cigarettes, uncomplicated
CPT/HCPCS: 99283

== ENCOUNTER 2023-07-25 15:49 | Emergency (ER) | payer MEDICAID, SELFPAY ==
[2023-07-25 15:53] VITALS: BP 133/88; PULSE 82; RESP 16; TEMP 36.9; O2SAT 97; BMI 32.9
--- NOTE | 2023-07-25 16:30 | W.ED.SKABFB ---
HPI - Skin/Abscess/Foreign Bdy General: Chief complaint: Skin/Abscess/Foreign Body Stated complaint: wasp sting, chest tightness Time Seen by Provider: 07/25/23 16:12 Source: patient Mode of arrival: ambulatory Limitations: no limitations History of Present Illness: Patient is a 37-year-old female presents to ED today for evaluation of a wasp sting to her right arm. Patient states she was concerned as previous stings have caused quite a bit of localized edema. She has never had an anaphylactic reaction or been intubated. She has never required epi. Patient is reporting a large red edematous area to the right upper arm where she was stung. She has no complaints of difficulty breathing or swallowing. No lip or tongue swelling. MD complaint: insect bite/sting Onset (ago): hour(s) Tetanus up to date: yes Location: RUE Severity: mild Quality: burning and pruritic Relieving factors: none Exacerbating factors: none Context: none Associated symptoms: Reports no associated symptoms; Deny chills, fever(s), nausea or vomiting Treatments prior to arrival: none Review of Systems Const: Denies: fever(s), chills, body aches, fatigue or malaise ENMT: Denies: throat pain, odynophagia or swelling of lips/tongue Card: Denies: chest pain Resp: Denies: dyspnea, wheezing, stridor or chest congestion GI: Denies: abdominal pain, nausea or vomiting Musc: Reports: extremity swelling (R upper arm); Denies: neck pain, back pain, extremity pain, joint pain, joint swelling or joint redness Skin/Breast: Reports: pruritus and erythema Neuro: Denies: headache(s), numbness in extremities, weakness in extremities, sensory changes or dizziness [facility] ED PFSH: Medical History Vitamin B deficiency Environmental and seasonal allergies Chronic hand pain Surgical History History of surgery on arm right tendon repair 2017 History of section 2012 and 2014 History of tubal ligation History of hemorrhoidectomy Family History Father Cancer Bone and Lymphoma Other Heart disease Denies family history of Bleeding disorder Social History Smoking and tobacco/nicotine status: current every day tobacco/nicotine user cigarettes Packs smoked per day: 0.5 Years cigarettes smoked: 20 Quit status (tobacco/nicotine): has tried quititng Number of times tried to quit tobacco: 1 Second hand smoke exposure: No Alcohol intake: never Substance/Drug Use: former Date of last use: Marijuana - teen. Adopted: No Caregiver/support person: No Lives independently: Yes Household members: spouse Housing: House Marital status: Number of children: 6 service: No Current occupational status: employed Do you think of yourself as: Straight/Heterosexual Current gender identity: Female Physical Exam Const: COMMON NORMALS: no acute distress, patient oriented x3, no limitations, alert and well nourished HENMT: MOUTH: Normal oral and palatal mucosa present, lip normal and tongue normal THROAT: posterior oropharynx normal Eye: GENERAL EYE: appearance normal, both eyes and all related structures Neck/C-Spine: COMMON NORMALS: no lymphadenopathy GENERAL: Yes normal visual inspection, No anterior neck swelling and No submandibular swelling Resp: COMMON NORMALS: normal respiratory effort and clear to auscultation bilaterally AUSCULTATION: clear to auscultation bilaterally Cardio: COMMON NORMALS: regular rate and regular rhythm RATE: regular rate RHYTHM: regular rhythm Extremity: GENERAL: Yes normal exam except as noted EXTREMITY IMAGE (FRONT): 1. erythema/edema/site of wasp sting; normal localized reaction Neuro: COMMON NORMALS: patient oriented x3, moves all extremities, no focal motor deficits and no sensory deficits noted SENSORIUM/ORIENTATION: Yes alert Skin: NARRATIVE SKIN EXAM: see above Course Vital Signs: Vital signs: Vital Signs Temperature 98.5 F 07/25/23 15:53 Pulse Rate 82 07/25/23 15:53 Respiratory Rate 16 07/25/23 15:53 Blood Pressure 133/88 07/25/23 15:53 Pulse Oximetry 97 07/25/23 15:53 Oxygen Delivery Me thod Room Air 07/25/23 15:53 MDM - Skin/Abscess/Foreign Bdy Medicial Decision Making Patient appears in no acute distress. She declines Benadryl. She is agreeable to IM Solu-Medrol. She was monitored here without any advancement in symptoms. She feels well enough to go home. No radiology studies performed this visit Discharge Plan Discharge Patient Disposition: Home Clinical Impression: Wasp sting Qualifiers: Encounter type: initial encounter Injury intent: accidental or unintentional Qualified Code(s): T63.461A - Toxic effect of venom of wasps, accidental (unintentional), initial encounter Condition: Stable Prescriptions: No Action Zyrtec 10 mg capsule 10 mg PO DAILY Qty: 30 5RF famotidine [Pepcid] 40 mg tablet 40 mg PO DAILY Qty: 30 5RF epinephrine [EpiPen] 0.3 mg/0.3 mL auto-injector 0.3 mg IM Q4H PRN (Reason: anaphylaxis) Qty: 2 1RF prednisone 20 mg tablet 20 mg PO DAILY Qty: 15 0RF Rx Instructions: Take 60 mg daily for days 1, 2, 3 Take 40 mg daily for days 4, 5 Take 20 mg daily for days 6, 7 Celexa 40 mg tablet 40 mg PO QAM Qty: 30 5RF Vitamin B-12 1,000 mcg Tablet 1,000 mcg PO QAM mupirocin 2 % ointment 1 applic topical BID Qty: 22 0RF hydrocodone-acetaminophen 5-325 mg tablet 1 tab PO Q8H PRN (Reason: pain (scale score 7-10)) Qty: 5 0RF Discharge Orders: Discharge ED (Routine); Ordered 07/25/23 Ordered By: Ginette Arellano Referrals: Renny Rosas DO [Primary Care Provider] - Coding Level of Care Code ED Suspension Cord Tier for Paris Cannon
[2023-07-25] MEDS: methylPREDNISolone sod succ 125 mg/2 mL INJ IM (16:37)
== END 2023-07-25 17:14 | disposition home or self-care (01) ==
PROVIDERS: Emergency Provider Physician Assistant; PCP Family Medicine
DX: T63.461A Toxic effect of venom of wasps, accidental (unintentional), initial encounter (principal); F17.210 Nicotine dependence, cigarettes, uncomplicated
CPT/HCPCS: 96372; 99284; J2919

== ENCOUNTER 2023-12-31 20:12 | Emergency (ER) | payer MEDICAID, SELFPAY ==
[2023-12-31 20:26] VITALS: BP 101/68; PULSE 64; RESP 17; TEMP 36.6; O2SAT 98; BMI 32.9
--- NOTE | 2023-12-31 20:55 | CTR_ITS ---
PROCEDURE INFORMATION: Exam: CT Head Without Contrast Exam date and time: 12/31/2023 10:30 PM Age: 38 years old Clinical indication: Injury or trauma; Fall; Blunt trauma (contusions or hematomas); Patient HX: Patient fell while in the shower. Patient believes she passed out when it happened. C/O left sided neck pain with left posterior rib pain with painful inspirations. ; Additional info: Fall, possible loc TECHNIQUE: Imaging protocol: Computed tomography of the head without contrast. Radiation optimization: All CT scans at this facility use at least one of these dose optimization techniques: automated exposure control; mA and/or kV adjustment per patient size (includes targeted exams where dose is matched to clinical indication); or iterative reconstruction. COMPARISON: CT head wo con* [id number] 08/22/2017 12:42 AM RADIATION DOSE METRICS: Total DLP (mGy-cm): 1080.7 FINDINGS: Brain: No intracranial hemorrhage. No evidence of acute territorial infarct or cerebral edema. No mass effect or midline shift. Cerebral ventricles: No hydrocephalus. Paranasal sinuses: Visualized paranasal sinuses are clear. Mastoid air cells: The mastoid air cells are clear. Bones: The calvarium is intact. Soft tissues: Soft tissues are unremarkable as visualized. CT/CT head wo con* [id number] IMPRESSION: No acute intracranial findings.
--- NOTE | 2023-12-31 20:55 | CTR_ITS ---
PROCEDURE INFORMATION: Exam: CT Chest Without Contrast; Diagnostic Exam date and time: 12/31/2023 10:35 PM Age: 38 years old Clinical indication: Injury or trauma; Fall; Dyspnea; Blunt trauma (contusions or hematomas); Patient HX: Patient fell while in the shower. Patient believes she passed out when it happened. C/O left sided neck pain with left posterior rib pain with painful inspirations. ; Additional info: Fall, left rib pain, diff breathing TECHNIQUE: Imaging protocol: Diagnostic computed tomography of the chest without contrast. Radiation optimization: All CT scans at this facility use at least one of these dose optimization techniques: automated exposure control; mA and/or kV adjustment per patient size (includes targeted exams where dose is matched to clinical indication); or iterative reconstruction. COMPARISON: CR XR chest 1V portable [id number] 10/13/2022 2:47 PM RADIATION DOSE METRICS: Total DLP (mGy-cm): 1268.51 FINDINGS: Thyroid: The visualized thyroid gland is normal. Trachea: The central airways are patent. Lungs: There is mild bibasilar parenchymal mosaicism, which may represent a degree of air trapping or small airways disease. No focal consolidation. Pleural spaces: No significant pleural effusion. No pneumothorax. Heart: The heart is normal in size. No pericardial effusion. Coronary arteries: No coronary artery calcifications. Lymph nodes: No enlarged lymph nodes by size criteria. Vasculature: Four vessel aortic arch, an anatomical variant. The aorta is normal in caliber. No aneurysm. Bones/joints: The spine demonstrates mild degenerative changes at multiple levels. Soft tissues: Soft tissues are unremarkable as visualized. Other findings: There is patchy decreased attenuation of the hepatic parenchyma, consistent with fatty infiltration. CT/CT chest [facility] [id number] IMPRESSION: 1. No acute findings. No rib fracture. 2. Patchy fatty infiltration of the liver.
--- NOTE | 2023-12-31 20:55 | CTR_ITS ---
PROCEDURE INFORMATION: Exam: CT Cervical Spine Without Contrast Exam date and time: 12/31/2023 10:33 PM Age: 38 years old Clinical indication: Injury or trauma; Fall; Blunt trauma; Patient HX: Patient fell while in the shower. Patient believes she passed out when it happened. C/O left sided neck pain with left posterior rib pain with painful inspirations. ; Additional info: Fall, neck pain TECHNIQUE: Imaging protocol: Computed tomography of the cervical spine without contrast. Radiation optimization: All CT scans at this facility use at least one of these dose optimization techniques: automated exposure control; mA and/or kV adjustment per patient size (includes targeted exams where dose is matched to clinical indication); or iterative reconstruction. COMPARISON: MR cervical spin wo con* [id number] 10/13/2022 1:27 PM RADIATION DOSE METRICS: Total DLP (mGy-cm): 577.77 FINDINGS: Bones: There is preservation of the normal cervical lordosis. There is no evidence of acute fracture. Mild multilevel degenerative changes of the cervical spine. No severe spinal canal or neural foraminal stenosis. Pharynx: Incidentally noted tonsillith. Lungs: Right apical paraseptal emphysema. Thyroid: The visualized thyroid gland is normal. Soft tissues: Soft tissues are unremarkable as visualized. CT/CT cervical spin wo con* [id number] IMPRESSION: No acute findings.
[2023-12-31 23:30] VITALS: BP 105/73; PULSE 59; O2SAT 96
--- NOTE | 2024-01-01 00:14 | XRR_ITS ---
PROCEDURE INFORMATION: Exam: XR Lumbosacral Spine Exam date and time: 01/01/2024 12:49 AM Age: 38 years old Clinical indication: Injury or trauma; Blunt trauma (contusions or hematomas); Prior surgery; Surgery date: 6+ months; Surgery type: Csection. Tubal. Patient HX: C/O low back pain after falling in the shower last night. ; Additional info: Fall/pain TECHNIQUE: Imaging protocol: Radiologic exam of the lumbosacral spine. Views: 2 or 3 views. COMPARISON: No relevant prior studies available. FINDINGS: Bones/joints: There is straightening of the normal lumbar lordosis, which may be combination of degenerative and positional. Minimal degenerative changes of the lower lumbar spine. There is no evidence of acute fracture. Soft tissues: There are scattered phleboliths. Soft tissues are unremarkable as visualized. XR/XR lumbar spine 2-3V* [id number] IMPRESSION: No acute findings.
--- NOTE | 2024-01-01 00:14 | XRR_ITS ---
PROCEDURE INFORMATION: Exam: XR Left Shoulder Exam date and time: 01/01/2024 12:45 AM Age: 38 years old Clinical indication: Injury or trauma; Blunt trauma (contusions or hematomas); Patient HX: C/O left shoulder pain after falling in the shower. ; Additional info: Fall/pain TECHNIQUE: Imaging protocol: Radiologic exam of the left shoulder. Views: 2 or more views. COMPARISON: CT chest con [id number] 12/31/2023 10:35 PM FINDINGS: Bones/joints: No acute fracture or dislocation. Lungs: The visualized portions of the lungs are unremarkable. Soft tissues: Soft tissues are unremarkable as visualized. XR/XR shoulder LT min 2V* [id number] IMPRESSION: No acute fracture or dislocation.
[2024-01-01 00:30] VITALS: BP 113/77; PULSE 60; O2SAT 100
--- NOTE | 2024-01-01 00:41 | W.ED.FALL ---
Documented by User: MOUSTAPHA Johnson 01/01/24 01:24 HPI - Fall General: Chief Complaint: Fall Stated Complaint: Fell\Head\Shoulder\Ribs Time Seen by Provider: 12/31/23 23:38 Source: patient Mode of arrival: ambulatory Limitations: no limitations History of Present Illness: Patient is a 38-year-old female presents the emergency department after a fall about an hour prior to arrival. States she was in the shower with her mentally disabled child cleaning them, and she fell accidentally, striking the left side of her body. States she did hit her head and thinks that she may have blacked out, as she came to on the ground. She is reporting pain to her left posterior shoulder, left lateral chest wall, head and neck, and mid back region. States she has a history of fibromyalgia and takes [place] daily. She is reporting pain with deep breaths and yawning. Has been using ice since presenting to the emergency department. Does not reporting any chest pain, dizziness, shortness of breath, or other symptoms at this time. MD complaint: fall Onset (ago): hour(s) Fall from: standing Fall witnessed: yes, by family Place fall occurred: home Loss of consciousness: Unsure Prolonged down time: no Symptoms prior to fall: none Context: tripped/slipped Location of injury: head, neck, chest and back Location of injury - extremities: Left: shoulder Associated symptoms-after fall: Reports chest pain (Left chest wall), headache(s) and neck pain; Denies abdominal pain Related Data Home Medications Medication Instructions Recorded Confirmed cyanocobalamin (vitamin B-12) 1,000 mcg PO QAM 10/13/22 08/19/23 1,000 mcg tablet (Vitamin B-12) Previous Rx's Medication Instructions Recorded cetirizine 10 mg capsule (Zyrtec) 10 mg PO DAILY #30 caps 12/03/22 epinephrine 0.3 mg/0.3 mL 0.3 mg (0.3 mL) IM Q4H PRN 12/03/22 injection, auto-injector (EpiPen) anaphylaxis #2 ea famotidine 40 mg tablet (Pepcid) 40 mg PO DAILY #30 tabs 12/03/22 prednisone 20 mg tablet 20 mg PO DAILY #15 tabs 12/14/22 hydrocodone 5 mg-acetaminophen 325 1 tab PO Q8H PRN pain (scale score 02/07/23 mg tablet 7-10) #5 tabs mupirocin 2 % topical ointment 1 applic topical BID #22 grams 02/07/23 citalopram 40 mg tablet (Celexa) 40 mg PO QAM #30 tabs 04/23/23 clindamycin HCl 300 mg capsule 300 mg PO TID #21 caps 08/19/23 mupirocin 2 % topical ointment 1 applic topical TID #15 grams 08/19/23 Allergies Allergy/AdvReac Type Severity Reaction Status Date / Time venom-wasp Allergy Severe ALGY-Difficulty Verified 12/31/23 20:30 Breathing methocarbamol Allergy Mild ADR-Itching Verified 12/31/23 20:30 cayenne Allergy Unknown Verified 12/31/23 20:30 ciprofloxacin [From Cipro] Allergy ALGY-Anaphy Verified 12/31/23 20:30 laxis diphenhydramine Allergy ADR-Drowsy Verified 12/31/23 20:30 [From Benadryl] gabapentin Allergy ADR-Nausea Verified 12/31/23 20:30 Iodinated Contrast Media Allergy Unknown Verified 12/31/23 20:30 meloxicam [From Mobic] Allergy Unknown Verified 12/31/23 20:30 metronidazole [From Flagyl] Allergy ALGY-Difficulty Verified 12/31/23 20:30 Breathing orange Allergy Unknown Verified 12/31/23 20:30 Penicillins Allergy ALGY-Anaphy Verified 12/31/23 20:30 laxis Sulfa (Sulfonamide Allergy ALGY-Anaphy Verified 12/31/23 20:30 Antibiotics) laxis Review of Systems General: Reports: 10 or more systems reviewed and unremarkable except in HPI and below Const: Denies: fever(s) or chills Card: Reports: chest pain (Left chest wall) Resp: Denies: dyspnea or productive cough GI: Denies: abdominal pain, nausea, vomiting or diarrhea : Denies: flank pain Musc: Reports: neck pain, back pain and joint pain (Left posterior shoulder); Denies: extremity pain, extremity swelling, joint swelling, joint redness, joint warmth, limited range of motion or muscle weakness Skin/Breast: Denies: rash Neuro: Reports: headache(s); Denies: numbness in extremities or weakness in extremities PFSH ED PFSH: Medical History Vitamin B deficiency Environmental and seasonal allergies Chronic hand pain Surgical History History of surgery on arm right tendon repair 2017 History of section 2012 and 2014 History of tubal ligation History of hemorrhoidectomy Family History Father Cancer Bone and Lymphoma Other Heart disease Denies family history of Bleeding disorder Social History Smoking and tobacco/nicotine status: current every day tobacco/nicotine user cigarettes Packs smoked per day: 0.5 Years cigarettes smoked: 20 Quit status (tobacco/nicotine): has tried quititng Number of times tried to quit tobacco: 1 Second hand smoke exposure: No Alcohol intake: never Substance/Drug Use: former Date of last use: Marijuana - teen. Adopted: No Caregiver/support person: No Lives independently: Yes Household members: spouse Housing: House Marital status: Number of children: 6 service: No Current occupational status: employed Do you think of yourself as: Straight/Heterosexual Current gender identity: Female Physical Exam Const: COMMON NORMALS: no acute distress, patient oriented x3, no limitations, healthy appearing, alert and well nourished HENMT: COMMON NORMALS: normocephalic and atraumatic HEAD & SCALP: normocephalic and atraumatic Neck/C-Spine: COMMON NORMALS: full ROM, supple and no meningeal signs OTHER: Some reproducible tenderness to palpation of the cervical spine and paracervical muscles. Limited range of motion, specifically with lateral rotation to the left due to pain Chest: COMMONS NORMALS: normal inspection of the chest OTHER: Tenderness to palpation of the left lateral chest wall. No step-off deformity or flail chest Resp: COMMON NORMALS: normal respiratory effort, No use of accessory muscles and clear to auscultation bilaterally AUSCULTATION: clear to auscultation bilaterally Cardio: COMMON NORMALS: regular rate and regular rhythm RATE: regular rate RHYTHM: regular rhythm Back/Pelvis: COMMON NORMALS: straight leg raise negative bilaterally OTHER: Reproducible spinous process tenderness to the cervical spine and thoracic spine with no step-off deformity or other signs of trauma Extremity: COMMON NORMALS: normal to inspection, full ROM, capillary refill normal, no joint enlargement and no clubbing, cyanosis or edema NARRATIVE EXTREMITY EXAM: Mild reproducible tenderness to palpation of the left scapular spine. No obvious deformity. Neuro: COMMON NORMALS: patient oriented x3, CN's II-XII intact bilaterally, moves all extremities, no focal motor deficits and no sensory deficits noted SENSORIUM/ORIENTATION: Yes alert MENINGEAL SIGNS: Yes no meningeal signs Skin: COMMON NORMALS: no rashes or lesions noted GENERAL SKIN EXAM: no rashes or lesions noted Course Vital Signs: Vital signs: Vital Signs Temperature 97.9 F 12/31/23 20:26 Pulse Rate 65 01/01/24 02:20 Respiratory Rate 17 12/31/23 20:26 Blood Pressure 108/77 01/01/24 02:20 Pulse Oximetry 97 01/01/24 02:20 Oxygen Delivery Me thod Room Air 12/31/23 20:26 MDM - Fall Medical Decision Making Patient presented after falling in the shower, injured the left side of her body in multiple different areas. Reported history of fibromyalgia where she takes [place] every day. Imaging was done of her head neck and chest, did not show any acute finding specifically no rib fractures as most of her pain is reported back to her left lateral chest wall. On examination she was tender to palpation at the left chest, cervical spine, thoracic spine, and left posterior shoulder. She did states she had some pain in her head as she believes she did hit it, though no obvious signs of head injury on examination and as stated her head CT was normal. X-ray obtained of her left shoulder and low back were also unremarkable. She is to continue taking [place] at home and treat conservatively for multiple contusions, and has an appointment with primary care that she will keep and follow-up with on Tuesday for further evaluation. She agrees with discharge home at this time and all other questions and concerns addressed. Lab Data Radiology Impressions Cervical Spine CT 12/31/23 20:55 IMPRESSION: No acute findings. Chest CT 12/31/23 20:55 IMPRESSION: 1. No acute findings. No rib fracture. 2. Patchy fatty infiltration of the liver. Head CT 12/31/23 20:55 IMPRESSION: No acute intracranial findings. Lumbar Spine X-Ray 01/01/24 00:14 IMPRESSION: No acute findings. Shoulder X-Ray 01/01/24 00:14 IMPRESSION: No acute fracture or dislocation. All radiology interpretation(s) finalized by discharge Discharge Plan Discharge Patient Disposition: Home Clinical Impression: Contusion of head Qualifiers: Encounter type: initial encounter Contusion of head detail: unspecified part of head Qualified Code(s): S00.93XA - Contusion of unspecified part of head, initial encounter Chest wall contusion Qualifiers: Encounter type: initial encounter Laterality: left Qualified Code(s): S20.212A - Contusion of left front wall of thorax, initial encounter Contusion of left shoulder Qualifiers: Encounter type: initial encounter Qualified Code(s): S40.012A - Contusion of left shoulder, initial encounter Neck sprain Qualifiers: Encounter type: initial encounter Qualified Code(s): S13.9XXA - Sprain of joints and ligaments of unspecified parts of neck, initial encounter Fall Qualifiers: Encounter type: initial encounter Qualified Code(s): W19.XXXA - Unspecified fall, initial encounter Condition: Stable Prescriptions: No Action Zyrtec 10 mg capsule 10 mg PO DAILY Qty: 30 5RF famotidine [Pepcid] 40 mg tablet 40 mg PO DAILY Qty: 30 5RF epinephrine [EpiPen] 0.3 mg/0.3 mL auto-injector 0.3 mg IM Q4H PRN (Reason: anaphylaxis) Qty: 2 1RF mupirocin 2 % ointment 1 applic topical TID Qty: 15 0RF clindamycin HCl 300 mg capsule 300 mg PO TID Qty: 21 0RF prednisone 20 mg tablet 20 mg PO DAILY Qty: 15 0RF Rx Instructions: Take 60 mg daily for days 1, 2, 3 Take 40 mg daily for days 4, 5 Take 20 mg daily for days 6, 7 Celexa 40 mg tablet 40 mg PO QAM Qty: 30 5RF Vitamin B-12 1,000 mcg Tablet 1,000 mcg PO QAM mupirocin 2 % ointment 1 applic topical BID Qty: 22 0RF hydrocodone-acetaminophen 5-325 mg tablet 1 tab PO Q8H PRN (Reason: pain (scale score 7-10)) Qty: 5 0RF Discharge Orders: Discharge ED (Routine); Ordered 09/15/24 Ordered By: Joseph Mak Referrals: Christopher Og MD [Primary Care Provider] - Discharge Diet: Usual diet Discharge Activity: Increase activity as tolerated Patient Instructions: Opioid Safety, Pain Management Activity Restrictions/Additional Instructions: Follow-up with primary care provider on Tuesday as already planned. Continue taking your [place] at home. Gentle range of motion exercises of any affected extremities as discussed. Ice and heat. Rest and recovery. Return with any new or concerning symptoms. Coding Level of Care Code ED Acquisition Cost Estimator for [facility] Documented by User: Kurt Trujillo, DO 01/01/24 14:57 HPI - Fall General: Chief Complaint: Fall Stated Complaint: Fell\Head\Shoulder\Ribs Time Seen by Provider: 12/31/23 23:38 Related Data Home Medications Medication Instructions Recorded Confirmed cyanocobalamin (vitamin B-12) 1,000 mcg PO QAM 10/13/22 08/19/23 1,000 mcg tablet (Vitamin B-12) Previous Rx's Medication Instructions Recorded cetirizine 10 mg capsule (Zyrtec) 10 mg PO DAILY #30 caps 12/03/22 epinephrine 0.3 mg/0.3 mL 0.3 mg (0.3 mL) IM Q4H PRN 12/03/22 injection, auto-injector (EpiPen) anaphylaxis #2 ea famotidine 40 mg tablet (Pepcid) 40 mg PO DAILY #30 tabs 12/03/22 prednisone 20 mg tablet 20 mg PO DAILY #15 tabs 12/14/22 hydrocodone 5 mg-acetaminophen 325 1 tab PO Q8H PRN pain (scale score 02/07/23 mg tablet 7-10) #5 tabs mupirocin 2 % topical ointment 1 applic topical BID #22 grams 02/07/23 citalopram 40 mg tablet (Celexa) 40 mg PO QAM #30 tabs 04/23/23 clindamycin HCl 300 mg capsule 300 mg PO TID #21 caps 08/19/23 mupirocin 2 % topical ointment 1 applic topical TID #15 grams 08/19/23 Allergies Allergy/AdvReac Type Severity Reaction Status Date / Time venom-wasp Allergy Severe ALGY-Difficulty Verified 12/31/23 20:30 Breathing methocarbamol Allergy Mild ADR-Itching Verified 12/31/23 20:30 cayenne Allergy Unknown Verified 12/31/23 20:30 ciprofloxacin [From Cipro] Allergy ALGY-Anaphy Verified 12/31/23 20:30 laxis diphenhydramine Allergy ADR-Drowsy Verified 12/31/23 20:30 [From Benadryl] gabapentin Allergy ADR-Nausea Verified 12/31/23 20:30 Iodinated Contrast Media Allergy Unknown Verified 12/31/23 20:30 meloxicam [From Mobic] Allergy Unknown Verified 12/31/23 20:30 metronidazole [From Flagyl] Allergy ALGY-Difficulty Verified 12/31/23 20:30 Breathing orange Allergy Unknown Verified 12/31/23 20:30 Penicillins Allergy ALGY-Anaphy Verified 12/31/23 20:30 laxis Sulfa (Sulfonamide Allergy ALGY-Anaphy Verified 12/31/23 20:30 Antibiotics) laxis PFSH ED PFSH: Medical History Vitamin B deficiency Environmental and seasonal allergies Chronic hand pain Surgical History History of surgery on arm right tendon repair 2017 History of section 2012 and 2014 History of tubal ligation History of hemorrhoidectomy Family History Father Cancer Bone and Lymphoma Other Heart disease Denies family history of Bleeding disorder Social History Smoking and tobacco/nicotine status: current every day tobacco/nicotine user cigarettes Packs smoked per day: 0.5 Years cigarettes smoked: 20 Quit status (tobacco/nicotine): has tried quititng Number of times tried to quit tobacco: 1 Second hand smoke exposure: No Alcohol intake: never Substance/Drug Use: former Date of last use: Marijuana - teen. Adopted: No Caregiver/support person: No Lives independently: Yes Household members: spouse Housing: House Marital status: Number of children: 6 service: No Current occupational status: employed Do you think of yourself as: Straight/Heterosexual Current gender identity: Female Course Vital Signs: Vital signs: Vital Signs Temperature 97.9 F 12/31/23 20:26 Pulse Rate 65 01/01/24 02:20 Respiratory Rate 17 12/31/23 20:26 Blood Pressure 108/77 01/01/24 02:20 Pulse Oximetry 97 01/01/24 02:20 Oxygen Delivery Me thod Room Air 12/31/23 20:26 MDM - Fall Medical Decision Making Patient presented after falling in the shower, injured the left side of her body in multiple different areas. Reported history of fibromyalgia where she takes [place] every day. Imaging was done of her head neck and chest, did not show any acute finding specifically no rib fractures as most of her pain is reported back to her left lateral chest wall. On examination she was tender to palpation at the left chest, cervical spine, thoracic spine, and left posterior shoulder. She did states she had some pain in her head as she believes she did hit it, though no obvious signs of head injury on examination and as stated her head CT was normal. X-ray obtained of her left shoulder and low back were also unremarkable. She is to continue taking [place] at home and treat conservatively for multiple contusions, and has an appointment with primary care that she will keep and follow-up with on Tuesday for further evaluation. She agrees with discharge home at this time and all other questions and concerns addressed. This patient was seen by Mr. Obdulio PA-C. I agree with his history, evaluation, and treatment. Lab Data Radiology Impressions Cervical Spine CT 12/31/23 20:55 IMPRESSION: No acute findings. Chest CT 12/31/23 20:55 IMPRESSION: 1. No acute findings. No rib fracture. 2. Patchy fatty infiltration of the liver. Head CT 12/31/23 20:55 IMPRESSION: No acute intracranial findings. Lumbar Spine X-Ray 01/01/24 00:14 IMPRESSION: No acute findings. Shoulder X-Ray 01/01/24 00:14 IMPRESSION: No acute fracture or dislocation. Discharge Plan Discharge Patient Disposition: Home Clinical Impression: Contusion of head Qualifiers: Encounter type: initial encounter Contusion of head detail: unspecified part of head Qualified Code(s): S00.93XA - Contusion of unspecified part of head, initial encounter Chest wall contusion Qualifiers: Encounter type: initial encounter Laterality: left Qualified Code(s): S20.212A - Contusion of left front wall of thorax, initial encounter Contusion of left shoulder Qualifiers: Encounter type: initial encounter Qualified Code(s): S40.012A - Contusion of left shoulder, initial encounter Neck sprain Qualifiers: Encounter type: initial encounter Qualified Code(s): S13.9XXA - Sprain of joints and ligaments of unspecified parts of neck, initial encounter Fall Qualifiers: Encounter type: initial encounter Qualified Code(s): W19.XXXA - Unspecified fall, initial encounter Condition: Stable Prescriptions: No Action Zyrtec 10 mg capsule 10 mg PO DAILY Qty: 30 5RF famotidine [Pepcid] 40 mg tablet 40 mg PO DAILY Qty: 30 5RF epinephrine [EpiPen] 0.3 mg/0.3 mL auto-injector 0.3 mg IM Q4H PRN (Reason: anaphylaxis) Qty: 2 1RF mupirocin 2 % ointment 1 applic topical TID Qty: 15 0RF clindamycin HCl 300 mg capsule 300 mg PO TID Qty: 21 0RF prednisone 20 mg tablet 20 mg PO DAILY Qty: 15 0RF Rx Instructions: Take 60 mg daily for days 1, 2, 3 Take 40 mg daily for days 4, 5 Take 20 mg daily for days 6, 7 Celexa 40 mg tablet 40 mg PO QAM Qty: 30 5RF Vitamin B-12 1,000 mcg Tablet 1,000 mcg PO QAM mupirocin 2 % ointment 1 applic topical BID Qty: 22 0RF hydrocodone-acetaminophen 5-325 mg tablet 1 tab PO Q8H PRN (Reason: pain (scale score 7-10)) Qty: 5 0RF Discharge Orders: Discharge ED (Routine); Ordered 01/01/24 Ordered By: Joseph Mak Referrals: Christopher Og MD [Primary Care Provider] - Discharge Diet: Usual diet Discharge Activity: Increase activity as tolerated Patient Instructions: Opioid Safety, Pain Management Activity Restrictions/Additional Instructions: Follow-up with primary care provider on Tuesday as already planned. Continue taking your [place] at home. Gentle range of motion exercises of any affected extremities as discussed. Ice and heat. Rest and recovery. Return with any new or concerning symptoms. Coding Level of Care Code ED Acquisition Cost Estimator for [place]
[2024-01-01] MEDS: HYDROcodone-acetaminophen 7.5-325 mg Tablet 1 TAB PO (00:55)
[2024-01-01 01:00] VITALS: BP 100/73; PULSE 61; O2SAT 99
[2024-01-01 02:20] VITALS: BP 108/77; PULSE 65; O2SAT 97
== END 2024-01-01 01:38 | disposition home or self-care (01) ==
PROVIDERS: Emergency Provider Physician Assistant; PCP Pediatrics
DX: S20.212A Contusion of left front wall of thorax, initial encounter (principal); S40.012A Contusion of left shoulder, initial encounter; S13.9XXA Sprain of joints and ligaments of unspecified parts of neck, initial encounter; S00.93XA Contusion of unspecified part of head, initial encounter; W18.2XXA Fall in (into) shower or empty bathtub, initial encounter; F17.210 Nicotine dependence, cigarettes, uncomplicated; Y93.F1 Activity, caregiving, bathing
CPT/HCPCS: 70450; 71250; 72100; 72125; 73030; 99284

== ENCOUNTER 2024-01-17 19:02 | Emergency (ER) | payer MEDICAID, SELFPAY ==
[2024-01-17] VITALS (19 sets, daily range): BP systolic 101–143; BP diastolic 68–85; PULSE 57–96; RESP 12–22; TEMP 36.7; O2SAT 95–98
--- NOTE | 2024-01-17 19:24 | ECG_ITS ---
[facility] Test Date: 2024-01-17 Pat Name: Albina Recinos Department: Room: Gender: Female Vat Tender: : 1985 Requested By: Anisha Amin Order Number: [id number] Aye MD: Ariel Cueto M.D. Measurements Intervals [place] Rate: 63 P: 62 UT: 166 QRS: 30 QRSD: 85 T: 52 QT: 416 QTc: 426 Interpretive Statements SINUS RHYTHM POSSIBLE LEFT ATRIAL ENLARGEMENT [-0.1mV P-WAVE IN V1/V2] LOW QRS VOLTAGE IN PRECORDIAL LEADS [QRS DEFLECTION < 1.0 mV IN CHEST LEADS] Compared to ECG 10/13/2022 14:45:19 Low QRS voltage now present Sinus bradycardia no longer present Electronically Signed On 01-18-2024 23:36:33 CDT by Ariel Cueto M.D. [email or web address]
--- NOTE | 2024-01-17 19:26 | ED_ITS ---
HPI - General Adult 2 General: Chief complaint: General Medical Stated complaint: Conjestions\Rib Pain Time Seen by Provider: 01/17/24 19:23 Source: patient Mode of arrival: ambulatory Limitations: no limitations History of Present Illness: 38-year-old female states she had had a fall 3 weeks ago landed on left side of her ribs she states she has had increasing left-sided chest pain and shortness of breath since she fell. States pain is sharp rates it a 6 out of 10 is worse with movement inspiration denies any fever denies any cough Associated symptoms: Reports chest pain and dyspnea; Deny headache(s), nausea, rash or vomiting Related Data Home Medications Medication Instructions Recorded Confirmed cyanocobalamin (vitamin B-12) 1,000 mcg PO QAM 10/13/22 08/19/23 1,000 mcg tablet (Vitamin B-12) Previous Rx's Medication Instructions Recorded cetirizine 10 mg capsule (Zyrtec) 10 mg PO DAILY #30 caps 12/03/22 epinephrine 0.3 mg/0.3 mL 0.3 mg (0.3 mL) IM Q4H PRN 12/03/22 injection, auto-injector (EpiPen) anaphylaxis #2 ea famotidine 40 mg tablet (Pepcid) 40 mg PO DAILY #30 tabs 12/03/22 prednisone 20 mg tablet 20 mg PO DAILY #15 tabs 12/14/22 hydrocodone 5 mg-acetaminophen 325 1 tab PO Q8H PRN pain (scale score 02/07/23 mg tablet 7-10) #5 tabs mupirocin 2 % topical ointment 1 applic topical BID #22 grams 02/07/23 citalopram 40 mg tablet (Celexa) 40 mg PO QAM #30 tabs 04/23/23 clindamycin HCl 300 mg capsule 300 mg PO TID #21 caps 08/19/23 mupirocin 2 % topical ointment 1 applic topical TID #15 grams 08/19/23 hydrocodone 5 mg-acetaminophen 325 1 tab PO Q6H PRN pain #14 tabs 01/17/24 mg tablet Allergies Allergy/AdvReac Type Severity Reaction Status Date / Time venom-wasp Allergy Severe ALGY-Difficulty Verified 01/17/24 19:11 Breathing methocarbamol Allergy Mild ADR-Itching Verified 01/17/24 19:11 cayenne Allergy Unknown Verified 01/17/24 19:11 ciprofloxacin [From Cipro] Allergy ALGY-Anaphy Verified 01/17/24 19:11 laxis diphenhydramine Allergy ADR-Drowsy Verified 01/17/24 19:11 [From Benadryl] gabapentin Allergy ADR-Nausea Verified 01/17/24 19:11 Iodinated Contrast Media Allergy Unknown Verified 01/17/24 19:11 meloxicam [From Mobic] Allergy Unknown Verified 01/17/24 19:11 metronidazole [From Flagyl] Allergy ALGY-Difficulty Verified 01/17/24 19:11 Breathing orange Allergy Unknown Verified 01/17/24 19:11 Penicillins Allergy ALGY-Anaphy Verified 01/17/24 19:11 laxis Sulfa (Sulfonamide Allergy ALGY-Anaphy Verified 01/17/24 19:11 Antibiotics) laxis Review of Systems 2 Const: Denies: fever(s), chills, body aches or change in appetite Eyes: Denies: eye discomfort ENMT: Denies: throat pain or dental pain Card: Reports: chest pain Resp: Reports: dyspnea GI: Denies: abdominal pain, nausea, vomiting or diarrhea : Denies: dysuria Musc: Denies: neck pain or back pain Skin/Breast: Denies: rash Neuro: Denies: headache(s) PFSH ED 2 PFSH: Medical History Vitamin B deficiency Environmental and seasonal allergies Chronic hand pain Surgical History History of surgery on arm right tendon repair 2017 History of section 2012 and 2014 History of tubal ligation History of hemorrhoidectomy Family History Father Cancer Bone and Lymphoma Other Heart disease Denies family history of Bleeding disorder Social History Smoking and tobacco/nicotine status: current every day tobacco/nicotine user cigarettes Packs smoked per day: 0.5 Years cigarettes smoked: 20 Quit status (tobacco/nicotine): has tried quititng Number of times tried to quit tobacco: 1 Second hand smoke exposure: No Alcohol intake: never Substance/Drug Use: former Date of last use: Marijuana - teen. Adopted: No Caregiver/support person: No Lives independently: Yes Household members: spouse Housing: House Marital status: Number of children: 6 service: No Current occupational status: employed Do you think of yourself as: Straight/Heterosexual Current gender identity: Female Physical Exam 2 Const: COMMON NORMALS: no acute distress, patient oriented x3 and healthy appearing HENMT: COMMON NORMALS: normocephalic and atraumatic HEAD & SCALP: n ormocephalic and atraumatic Eye: COMMON NORMALS: conjunctivae normal CONJUNCTIVA: Yes conjunctivae normal Neck/C-Spine: COMMON NORMALS: full ROM and supple Chest: COMMONS NORMALS: normal inspection of the chest OTHER: left posterior chest wall tenderness Resp: COMMON NORMALS: normal respiratory effort, No retractions, No use of accessory muscles and clear to auscultation bilaterally AUSCULTATION: clear to auscultation bilaterally Cardio: COMMON NORMALS: regular rate, regular rhythm and No murmurs present (Cardio) RATE: regular rate RHYTHM: regular rhythm GI: COMMON NORMALS: Normal to inspection, nondistended, normoactive bowel sounds present, Soft to palpation, non-tender and no masses PALPATION: Yes Soft to palpation Extremity: COMMON NORMALS: normal to inspection and full ROM Neuro: COMMON NORMALS: patient oriented x3, moves all extremities and no focal motor deficits Psych: COMMON NORMALS: mental status grossly normal, Normal thought process present and cooperative THOUGHT PROCESS: Normal thought process present Skin: COMMON NORMALS: no rashes or lesions noted and no wounds GENERAL SKIN EXAM: no rashes or lesions noted Course 2 Vital Signs: Vital signs: Vital Signs Temperature 98.1 F 01/17/24 19:07 Pulse Rate 62 01/17/24 20:30 Respiratory Rate 15 01/17/24 20:30 Blood Pressure 107/72 01/17/24 20:30 Pulse Oximetry 95 01/17/24 20:30 Oxygen Delivery Me thod Room Air 01/17/24 20:12 MDM - General Adult Medical Decision Making Patient presents with a rib fracture from a fall is nondisplaced she is well- appearing here x-rays shows no other acute abnormality she stable for discharge follow-up with PCP return if worsening. Medical Records I reviewed the patient's medical records. Lab Data I reviewed the patient's lab results. 01/17/24 19:32 01/17/24 19:32 Radiology Impressions Ribs X-Ray 01/17/24 19:45 IMPRESSION: Nondisplaced left lateral 10th rib fracture. Laboratory Results WBC 6.16 10^3/uL (3.29-11.43) 01/17/24 19:32 RBC 4.10 10^6/uL (3.85-5.65) 01/17/24 19:32 Hgb 13.70 g/dL (11.27-16.99) 01/17/24 19:32 Hct 38.6 % (36-47) 01/17/24 19:32 MCV 94.1 fl (85-98) 01/17/24 19:32 MCH 33.4 pg (27-33) H 01/17/24 19:32 MCHC 35.5 g/dL (30-55) 01/17/24 19:32 RDW 13.1 % (12.1-15.1) 01/17/24 19:32 Plt Count 233 10^3/cmm (157-399) 01/17/24 19:32 MPV 9.5 fL (7.4-10.4) 01/17/24 19:32 Neut % (Auto) 39.9 % 01/17/24 19:32 Lymph % (Auto) 41.6 % 01/17/24 19:32 [place] % (Auto) 11.2 % 01/17/24 19:32 Eos % (Auto) 6.5 % 01/17/24 19:32 Baso % (Auto) 0.6 % 01/17/24 19:32 Neut # (Auto) 2.46 10^3/uL (1.8-7.7) 01/17/24 19:32 Lymph # (Auto) 2.6 10^3/uL (0.8-4.8) 01/17/24 19:32 [place] # (Auto) 0.7 10^3/uL (0.2-0.9) 01/17/24 19:32 Eos # (Auto) 0.4 10^3/uL (0.0-0.8) 01/17/24 19:32 Baso # (Auto) 0.0 10^3/uL (0.0-0.1) 01/17/24 19:32 Nucleated RBC % (auto) 0 % 01/17/24 19:32 Nucleated RBCs # 0.0 /100WBC 01/17/24 19:32 D-Dimer 0.42 ug/mLFEU (0-0.59) 01/17/24 19:32 Sodium 139 mmol/L (136-145) 01/17/24 19:32 Potassium 3.8 mmol/L (3.5-5.1) 01/17/24 19:32 Chloride 105 mmol/L (98-107) 01/17/24 19:32 Carbon Dioxide 22 mmol/L (22-29) 01/17/24 19:32 Anion Gap 15.8 (5-19) 01/17/24 19:32 BUN 11 mg/dL (6-20) 01/17/24 19:32 Creatinine 0.5 mg/dL (0.5-0.9) 01/17/24 19:32 GFR Calculation 138.1 mL/min (90-130) H 01/17/24 19:32 Glucose 120 mg/dL (65-115) H 01/17/24 19:32 Calculated Osmolality 289 mOsm/kg (285-295) 01/17/24 19:32 Calcium 9.1 mg/dL (8.5-10.5) 01/17/24 19:32 Total Bilirubin 0.2 mg/dL (0.15-1.2) 01/17/24 19:32 AST 22 U/L (0-32) 01/17/24 19:32 ALT 21 U/L (0-33) 01/17/24 19:32 Alkaline Phosphatase 79 U/L (35-105) 01/17/24 19:32 Troponin T Baseline < 6 ng/L (0-10) 01/17/24 19:32 Total Protein 6.9 g/dL (6.6-8.7) 01/17/24 19:32 Albumin 4.2 g/dL (3.5-5.2) 01/17/24 19:32 Globulin 2.7 g/dL (1.3-4.6) 01/17/24 19:32 HCG, Qual Negative (Negative) 01/17/24 19:32 All radiology interpretation(s) finalized by discharge EKG Data EKG 1: I personally reviewed and interpreted this EKG as follows: EKG interpretation date: 01/17/24 EKG interpretation time: 19:33 Interpretation: nsr hr [address] elevation qrs 85 qtc 422 Computer generated interpretation: Ribs X-Ray 01/17/24 19:45 IMPRESSION: Nondisplaced left lateral 10th rib fracture. Discharge Plan Discharge Patient Disposition: Home Clinical Impression: Chest wall pain, Left rib fracture Condition: Stable Prescriptions: New hydrocodone-acetaminophen 5-325 mg tablet 1 tab PO Q6H PRN (Reason: pain) Qty: 14 0RF No Action Zyrtec 10 mg capsule 10 mg PO DAILY Qty: 30 5RF famotidine [Pepcid] 40 mg tablet 40 mg PO DAILY Qty: 30 5RF epinephrine [EpiPen] 0.3 mg/0.3 mL auto-injector 0.3 mg IM Q4H PRN (Reason: anaphylaxis) Qty: 2 1RF mupirocin 2 % ointment 1 applic topical TID Qty: 15 0RF clindamycin HCl 300 mg capsule 300 mg PO TID Qty: 21 0RF prednisone 20 mg tablet 20 mg PO DAILY Qty: 15 0RF Rx Instructions: Take 60 mg daily for days 1, 2, 3 Take 40 mg daily for days 4, 5 Take 20 mg daily for days 6, 7 Celexa 40 mg tablet 40 mg PO QAM Qty: 30 5RF Vitamin B-12 1,000 mcg Tablet 1,000 mcg PO QAM mupirocin 2 % ointment 1 applic topical BID Qty: 22 0RF hydrocodone-acetaminophen 5-325 mg tablet 1 tab PO Q8H PRN (Reason: pain (scale score 7-10)) Qty: 5 0RF Discharge Orders: Discharge ED (Routine); Ordered 01/17/24 Ordered By: Anisha Amin Referrals: Renny Rosas, [Primary Care Provider] - Discharge Diet: Advance as tolerated Discharge Activity: Resume usual activity Patient Instructions: Chest Pain - Chest Wall Coding Level of Care Code ED Pleat Patternmaker for Chg Kassandra
[2024-01-17 19:41] LABS: Basophils % 0.6 %; Eosinophils # 0.4 10^3/uL (0.0-0.8); Eosinophils % 6.5 %; Hematocrit 38.6 % (36-47); Lymphocytes # 2.6 10^3/uL (0.8-4.8); Lymphocytes % 41.6 %; Mean Corpuscular HGB Conc 35.5 g/dL (30-55); Mean Corpuscular Hemoglobin 33.4 pg (27-33); Mean Corpuscular Volume 94.1 fl (85-98); Mean Platelet Volume 9.5 fL (7.4-10.4); Monocytes # 0.7 10^3/uL (0.2-0.9); Monocytes % 11.2 %; Neutrophils # 2.46 10^3/uL (1.8-7.7); Neutrophils % 39.9 %; Nucleated Red Blood Cells % 0 %; Platelet Count 233 10^3/cmm (157-399); Red Cell Distribution Width 13.1 % (12.1-15.1); White Blood Count 6.16 10^3/uL (3.29-11.43)
--- NOTE | 2024-01-17 19:45 | XRR_ITS ---
PROCEDURE INFORMATION: Exam: XR Left Ribs with PA Chest Exam date and time: 01/17/2024 7:55 PM Age: 38 years old Clinical indication: Injury or trauma; Fall; Rib area, left side; Blunt trauma; Additional info: Cp TECHNIQUE: Imaging protocol: Radiologic exam of the left ribs with PA chest. Views: 3 views COMPARISON: CT chest con [id number] 12/31/2023 10:35 PM FINDINGS: Lungs: Unremarkable. No consolidation. Pleural spaces: Unremarkable. No pleural effusion. No pneumothorax. Heart/Mediastinum: Unremarkable. No cardiomegaly. Bones/joints: Nondisplaced fracture of the left lateral 10th rib. XR/XR ribs LT mn 3V w [id number] IMPRESSION: Nondisplaced left lateral 10th rib fracture.
[2024-01-17] MEDS: ondansetron 2 mg/ML SDV 2 mL 4 MG IVP (19:47)
[2024-01-17] MEDS: morphine 4 mg/mL SDV 1 mL IVP (19:49)
[2024-01-17 19:50] LABS: HCG, Serum Qual Negative (Negative)
[2024-01-17 19:58] LABS: Troponin(5th) Baseline < 6 ng/L (0-10)
[2024-01-17 20:00] LABS: Alanine Aminotransferase 21 U/L (0-33); Albumin Level 4.2 g/dL (3.5-5.2); Alkaline Phosphatase 79 U/L (35-105); Anion Gap 15.8 (5-19); Aspartate Amino Transferase 22 U/L (0-32); Blood Urea Nitrogen 11 mg/dL (6-20); Calcium 9.1 mg/dL (8.5-10.5); Carbon Dioxide 22 mmol/L (22-29); Chloride 105 mmol/L (98-107); Creatinine Clr Calc Pharmacy 146.6781; Globulin 2.7 g/dL (1.3-4.6); Glomerular Filtration Rate 138.1 mL/min (90-130); Glucose 120 mg/dL (65-115); Osmolality Calculated 289 mOsm/kg (285-295); Potassium 3.8 mmol/L (3.5-5.1); Sodium 139 mmol/L (136-145); Total Bilirubin 0.2 mg/dL (0.15-1.2); Total Protein 6.9 g/dL (6.6-8.7)
[2024-01-17 20:49] LABS: D Dimer 0.42 ug/mLFEU (0-0.59)
== END 2024-01-17 21:20 | disposition home or self-care (01) ==
PROVIDERS: Emergency Provider Emergency Medicine; PCP Family Medicine
DX: S22.32XA Fracture of one rib, left side, initial encounter for closed fracture (principal); Z91.81 History of falling
CPT/HCPCS: 71101; 80053; 84484; 84703; 85025; 85378; 93005; 96374; 96375; 99285; J2270; J2405

== ENCOUNTER → 2024-02-14 14:00 | Outpatient (BNVA) | payer MEDICAID, SELFPAY | PROVIDERS: PCP Family Medicine; Visit Provider Nurse Practitioner | DX: Z12.4 Encounter for screening for malignant neoplasm of cervix (principal) | CPT/HCPCS: 88175 ==

== ENCOUNTER 2024-06-22 22:03 | Emergency (ER) | payer MEDICAID, SELFPAY ==
[2024-06-22 23:13] VITALS: BP 107/72; PULSE 72; RESP 14; TEMP 36.6; O2SAT 98
--- NOTE | 2024-06-23 01:54 | W.ED.NECK ---
HPI - Neck Pain/Injury General: Chief Complaint: Neck Pain/Injury Stated Complaint: Back and Shoulders swollen and red Lots of Pain Time Seen by Provider: 06/23/24 01:34 History of Present Illness: Patient presents to the ER with complaints of upper neck and upper back pain muscle tension for about the last 4 days. She has had problems with these areas in the past. 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 She said the last several days her daughters required more assistance and lifting her up and moving her around. Other than that there is no known trauma to this area. Patient does admit to taking hydrocodone that was given to her as well as Tylenol and ibuprofen nothing is seem to help the pain. The pain is equal on both sides and is over the trapezius and paraspinal musculature areas. Related Data Home Medications ?Medication ?Instructions ?Recorded ?Confirmed cyanocobalamin (vitamin B-12) 1,000 mcg PO QAM 10/13/22 02/14/24 1,000 mcg tablet (Vitamin B-12) Previous Rx's ?Medication ?Instructions ?Recorded cetirizine 10 mg capsule (Zyrtec) 10 mg PO DAILY #30 caps 12/03/22 hydrocodone 5 mg-acetaminophen 325 1 tab PO Q6H PRN pain #14 tabs 01/17/24 mg tablet Disposable nebulizer circuit #1 ea 01/19/24 albuterol sulfate 2.5 mg/3 mL 2.5 mg (3 mL) inhalation Q4H PRN 01/19/24 (0.083 %) solution for nebulization shortness of breath or wheezing #75 mL citalopram 40 mg tablet (Celexa) 40 mg PO QAM #30 tabs 02/14/24 epinephrine 0.3 mg/0.3 mL 0.3 mg (0.3 mL) IM Q4H PRN 02/14/24 injection, auto-injector (EpiPen) anaphylaxis #2 ea cyclobenzaprine 5 mg tablet 5 mg PO TID PRN muscle spasm #14 06/23/24 tabs prednisone 50 mg tablet 50 mg PO DAILY #5 tabs 06/23/24 Allergies Allergy/AdvReac Type Severity Reaction Status Date / Time venom-wasp Allergy Severe ALGY-Difficulty Verified 06/22/24 23:18 Breathing methocarbamol Allergy Mild ADR-Itching Verified 06/22/24 23:18 cayenne Allergy Unknown Verified 06/22/24 23:18 ciprofloxacin (From Cipro) Allergy ALGY-Anaphy Verified 06/22/24 23:18 laxis diphenhydramine (From Allergy ADR-Drowsy Verified 06/22/24 23:18 Benadryl) gabapentin Allergy ADR-Nausea Verified 06/22/24 23:18 Iodinated Contrast Media Allergy Unknown Verified 06/22/24 23:18 meloxicam (From Mobic) Allergy Unknown Verified 06/22/24 23:18 metronidazole (From Flagyl) Allergy ALGY-Difficulty Verified 06/22/24 23:18 Breathing orange Allergy Unknown Verified 06/22/24 23:18 Penicillins Allergy ALGY-Anaphy Verified 06/22/24 23:18 laxis Sulfa (Sulfonamide Allergy ALGY-Anaphy Verified 06/22/24 23:18 Antibiotics) laxis Review of Systems General: Reports: 10 or more systems reviewed and unremarkable except in HPI and below PFSH ED PFSH: Medical History History of anaphylaxis Wasp Vitamin B deficiency Environmental and seasonal allergies Chronic hand pain Surgical History History of surgery on arm right tendon repair 2017 History of section 2012 and 2014 History of tubal ligation History of hemorrhoidectomy Family History Father Cancer Bone and Lymphoma Other Heart disease Denies family history of Bleeding disorder Social History Smoking and tobacco/nicotine status: current every day tobacco/nicotine user cigarettes Packs smoked per day: 0.5 Years cigarettes smoked: 20 Quit status (tobacco/nicotine): has tried quititng Number of times tried to quit tobacco: 1 Second hand smoke exposure: No Alcohol intake: never Substance/Drug Use: former Date of last use: Marijuana - teen. Adopted: No Caregiver/support person: No Lives independently: Yes Household members: spouse Housing: House Marital status: Number of children: 6 service: No Current occupational status: employed Do you think of yourself as: Straight/Heterosexual Current gender identity: Female Female Reproductive History: Para: 6 Spontaneous abortions: Yes (6) Physical Exam Const: COMMON NORMALS: no acute distress, average body habitus, patient oriented x3, no limitations, healthy appearing, alert and well nourished HENMT: COMMON NORMALS: normocephalic, atraumatic, hearing grossly normal bilaterally, external ears normal, Normal external nose present, moist oral mucous membranes and oropharynx normal HEAD & SCALP: normocephalic and atraumatic NOSE: Normal external nose present EXTERNAL EAR: Yes external ears normal Neck/C-Spine: COMMON NORMALS: no lymphadenopathy, supple, no meningeal signs and no JVD Chest: COMMONS NORMALS: normal inspection of the chest and normal palpation of entire chest wall Resp: COMMON NORMALS: normal respiratory effort, No retractions, No use of accessory muscles and clear to auscultation bilaterally AUSCULTATION: clear to auscultation bilaterally Cardio: COMMON NORMALS: no JVD, regular rate, regular rhythm, S1 normal heart sound present, S2 normal heart sound present, No gallops present (Cardio), No clicks present (Cardio), No murmurs present (Cardio) and No rub (Cardio) RATE: regular rate RHYTHM: regular rhythm HEART SOUNDS: S1 normal heart sound present and S2 normal heart sound present GI: COMMON NORMALS: Normal to inspection, nondistended, normoactive bowel sounds present, Soft to palpation, non-tender, No hepatosplenomegaly present and no masses PALPATION: Yes Soft to palpation and Yes No hepatosplenomegaly present Back/Pelvis: OTHER: Tight ropey musculature and tenderness to palpation over paraspinal musculature, trapezius, rhomboids over the cervical and thoracic area, no step-off or vertebral tenderness. Neuro: COMMON NORMALS: patient oriented x3 SENSORIUM/ORIENTATION: Yes alert MENINGEAL SIGNS: Yes no meningeal signs Course Vital Signs: Vital signs: Vital Signs Temperature 97.8 F 06/22/24 23:13 Pulse Rate 60 06/23/24 02:09 Respiratory Rate 14 06/22/24 23:13 Blood Pressure 117/84 06/23/24 02:09 Pulse Oximetry 94 06/23/24 02:09 Oxygen Delivery Me thod Room Air 06/23/24 02:09 MDM - Neck Pain/Injury Medical Decision Making Patient given Toradol 60 mg, Norflex 60 mg, Decadron 10 mg, as help the patient spasms and pain immensely. Patient will be discharged home. Medical Records I reviewed the patient's medical records. Lab Data I reviewed the patient's lab results. No radiology studies performed this visit Discharge Plan Discharge Patient Disposition: Home Clinical Impression: Musculoskeletal pain Condition: Stable Prescriptions: New prednisone 50 mg tablet 50 mg PO DAILY Qty: 5 0RF cyclobenzaprine 5 mg tablet 5 mg PO TID PRN (Reason: muscle spasm) Qty: 14 0RF No Action Zyrtec 10 mg capsule 10 mg PO DAILY Qty: 30 5RF albuterol sulfate 2.5 mg /3 mL (0.083 %) solution for nebulization 2.5 mg inhalation Q4H PRN (Reason: shortness of breath or wheezing) Qty: 75 0RF (DME) Disposable nebulizer circuit See Rx Instructions .ROUTE .MEDSUPPLY Qty: 1 0RF Rx Instructions: As directed epinephrine [EpiPen] 0.3 mg/0.3 mL auto-injector 0.3 mg IM Q4H PRN (Reason: anaphylaxis) Qty: 2 1RF Celexa 40 mg tablet 40 mg PO QAM Qty: 30 5RF Vitamin B-12 1,000 mcg Tablet 1,000 mcg PO QAM hydrocodone-acetaminophen 5-325 mg tablet 1 tab PO Q6H PRN (Reason: pain) Qty: 14 0RF Discharge Orders: Discharge ED (Routine); Ordered 06/23/24 Ordered By: Aristides Guido Referrals: Renny Rosas DO [Primary Care Provider] - 1 week Patient Instructions: Musculoskeletal Pain (ED) Activity Restrictions/Additional Instructions: Activity restrictions/additional instructions: Thank you for choosing [facility] for your healthcare needs today. Please realize that you were seen in the emergency department and that we are providing you with an emergency medical screening exam and this may not be a complete and all exclusive of all testing and/or medical workup we may need to determine your element or severity of your illness. It is very important that you follow-up as instructed with your primary care provider or specialist for the additional evaluation and to discuss your medical treatment plan. You may return to the emergency department should you have concerns or if your condition changes or worsens in any way. 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
[2024-06-23] MEDS: dexamethasone 10 mg/mL INJ IM (02:01)
[2024-06-23] MEDS: ketorolac 60 mg/2 mL INJ IM (02:01)
[2024-06-23] MEDS: orphenadrine 30 mg/mL Inj 2 mL 60 MG IM (02:02)
[2024-06-23 02:09] VITALS: BP 117/84; PULSE 60; O2SAT 94
[2024-06-23 03:16] VITALS: BP 114/76; PULSE 55; O2SAT 95
== END 2024-06-23 03:17 | disposition home or self-care (01) ==
PROVIDERS: Emergency Provider Emergency Medicine; PCP Family Medicine
DX: M79.18 Myalgia, other site (principal); F17.210 Nicotine dependence, cigarettes, uncomplicated
CPT/HCPCS: 96372; 99284; J1100; J1885; J2360

== ENCOUNTER 2024-08-26 16:49 | Emergency (ER) | payer MEDICAID, SELFPAY ==
[2024-08-26 16:54] VITALS: BP 125/87; PULSE 80; TEMP 36.7; O2SAT 96; BMI 30.2
[2024-08-26 17:21] LABS: Basophils % 0.4 %; Eosinophils # 0.1 10^3/uL (0.0-0.8); Eosinophils % 1.3 %; Hematocrit 40.5 % (36-47); Lymphocytes # 3.3 10^3/uL (0.8-4.8); Lymphocytes % 34.5 %; Mean Corpuscular HGB Conc 34.3 g/dL (30-55); Mean Corpuscular Hemoglobin 32.3 pg (27-33); Mean Corpuscular Volume 94.2 fl (85-98); Mean Platelet Volume 9.4 fL (7.4-10.4); Monocytes # 0.7 10^3/uL (0.2-0.9); Monocytes % 7.7 %; Neutrophils % 55.8 %; Nucleated Red Blood Cells % 0 %; Platelet Count 293 10^3/cmm (157-399); Red Cell Distribution Width 12.7 % (12.1-15.1)
[2024-08-26 17:40] LABS: Alanine Aminotransferase 19 U/L (0-33); Albumin Level 4.3 g/dL (3.5-5.2); Alkaline Phosphatase 72 U/L (35-105); Anion Gap 17.1 (5-19); Aspartate Amino Transferase 22 U/L (0-32); Blood Urea Nitrogen 11 mg/dL (6-20); Calcium 9.7 mg/dL (8.5-10.5); Carbon Dioxide 21 mmol/L (22-29); Chloride 105 mmol/L (98-107); Creatinine Clr Calc Pharmacy 115.8208; Globulin 3.3 g/dL (1.3-4.6); Glomerular Filtration Rate 111.9 mL/min (90-130); Glucose 91 mg/dL (65-115); Osmolality Calculated 287 mOsm/kg (285-295); Potassium 4.1 mmol/L (3.5-5.1); Sodium 139 mmol/L (136-145); Total Bilirubin 0.3 mg/dL (0.15-1.2); Total Protein 7.6 g/dL (6.6-8.7)
[2024-08-26] MEDS: LORazepam 1 mg Tablet PO (18:39)
[2024-08-26 18:41] VITALS: BP 120/74; PULSE 71; O2SAT 95
--- NOTE | 2024-08-26 18:49 | ED_ITS ---
HPI - General Adult 2 General: Chief complaint: General Medical Stated complaint: muscle spasms in arms and legs Time Seen by Provider: 08/26/24 18:19 Source: patient Mode of arrival: ambulatory Limitations: no limitations History of Present Illness: 38-year-old female states she has had mu scle spasms and jerks and feels like things crawling her it has been going on for 20 years states she seen multiple people in send no answer states seem to be worsening lately denies any pain denies any fever denies any worse improved factors. Associated symptoms: Deny chest pain, dyspnea, headache(s), nausea, rash or vomiting Related Data Home Medications ?Medication ?Instructions ?Recorded ?Confirmed cyanocobalamin (vitamin B-12) 1,000 mcg PO QAM 10/13/ 3 02/14/24 1,000 mcg tablet (Vitamin B-12) Previous Rx's ?Medication ?Instructions ?Recorded cetirizine 10 mg capsule (Zyrtec) 10 mg PO DAILY #30 c aps 12/03/22 hydrocodone 5 mg-acetaminophen 325 1 tab PO Q6H PRN pa in #14 tabs 01/17/24 mg tablet Disposable nebulizer circuit #1 ea 01/19/24 albuterol sulfate 2.5 mg/3 mL 2.5 mg (3 mL) inhalation Q4H PRN 01/19/24 (0.083 %) solution for nebulization shortness of breat h or wheezing #75 mL citalopram 40 mg tablet (Celexa) 40 mg PO QAM #30 tabs 02/14/24 epinephrine 0.3 mg/0.3 mL 0.3 mg (0.3 mL) IM Q4H PRN 1 injection, auto-injector (EpiPen) anaphylaxis #2 ea cyclobenzaprine 5 mg tablet 5 mg PO TID PRN muscle spa sm #14 06/23/24 tabs prednisone 50 mg tablet 50 mg PO DAILY #5 tabs 06/23 Allergies Allergy/AdvReac Type Severity Reaction Status Date / Time venom-wasp Allergy Severe ALGY-Difficulty Verified 08/26/24 17:00 Breathing methocarbamol Allergy Mild ADR-Itching Verified 08/26/24 17:00 cayenne Allergy Unknown Verified 08/26/24 17:00 ciprofloxacin (From Cipro) Allergy ALGY-Anaphy Verified 08/26/24 17:00 laxis diphenhydramine (From Allergy ADR-Drowsy Verified 08/26/24 17:00 Benadryl) gabapentin Allergy ADR-Nausea Verified 08/26/24 17:00 Iodinated Contrast Media Allergy Unknown Verified 08/26/24 17:00 meloxicam (From Mobic) Allergy Unknown Verified 08/26/24 17:00 metronidazole (From Flagyl) Allergy ALGY-Difficulty Verified 08/26/24 17:00 Breathing orange Allergy Unknown Verified 08/26/24 17:00 Penicillins Allergy ALGY-Anaphy Verified 08/26/24 17:00 laxis Sulfa (Sulfonamide Allergy ALGY-Anaphy Verified 08/26/24 17:00 Antibiotics) laxis Review of Systems 2 Const: Denies: fever(s), chills, body aches or change in appetite ENMT: Denies: throat pain or dental pain Card: Denies: chest pain Resp: Denies: dyspnea GI: Denies: abdominal pain, nausea, vomiting or diarrhea Musc: Denies: neck pain or back pain Skin/Breast: Denies: rash Neuro: Denies: headache(s) PFSH ED 2 PFSH: Medical History History of anaphylaxis Wasp Vitamin B deficiency Environmental and seasonal allergies Chronic hand pain Surgical History History of surgery on arm right tendon repair 2017 History of section 2012 and 2014 History of tubal ligation History of hemorrhoidectomy Family History Father Cancer Bone and Lymphoma Other Heart disease Denies family history of Bleeding disorder Social History Smoking and tobacco/nicotine status: current every day tobacco/nicotine user cigarettes Packs smoked per day: 0.5 Years cigarettes smoked: 20 Quit status (tobacco/nicotine): has tried quititng Number of times tried to quit tobacco: 1 Second hand smoke exposure: No Alcohol intake: never Substance/Drug Use: former Date of last use: Marijuana - teen. Adopted: No Caregiver/support person: No Lives independently: Yes Household members: spouse Housing: House Marital status: Number of children: 6 service: No Current occupational status: employed Do you think of yourself as: Straight/Heterosexual Current gender identity: Female Female Reproductive History: Para: 6 Spontaneous abortions: Yes (6) Physical Exam 2 Const: COMMON NORMALS: no acute distress, patient oriented x3 and healthy appearing HENMT: COMMON NORMALS: normocephalic and atraumatic HEAD & SCALP: n ormocephalic and atraumatic Eye: COMMON NORMALS: conjunctivae normal CONJUNCTIVA: Yes conjunctivae normal Neck/C-Spine: COMMON NORMALS: full ROM and supple Chest: COMMONS NORMALS: normal inspection of the chest Resp: COMMON NORMALS: normal respiratory effort Cardio: COMMON NORMALS: regular rate, regular rhythm and No murmurs present (Cardio) RATE: regular rate RHYTHM: regular rhythm Extremity: COMMON NORMALS: normal to inspection and full ROM Neuro: COMMON NORMALS: patient oriented x3, moves all extremities and no focal motor deficits Psych: COMMON NORMALS: mental status grossly normal, Normal thought process present and cooperative THOUGHT PROCESS: Normal thought process present Skin: COMMON NORMALS: no rashes or lesions noted and no wounds GENERAL SKIN EXAM: no rashes or lesions noted Course 2 Vital Signs: Vital signs: Vital Signs Temperature 98.0 F 08/26/24 16:54 Pulse Rate 71 08/26/24 18:41 Blood Pressure 120/74 08/26/24 18:41 Pulse Oximetry 95 08/26/24 18:41 Oxygen Delivery Me thod Room Air 08/26/24 16:54 MDM - General Adult Medical Decision Making Patient presents here with muscle spasms going on for years she is well- appearing here blood works normal patient stable for discharge follow-up PCP return if worsening Medical Records I reviewed the patient's medical records. Lab Data I reviewed the patient's lab results. 08/26/24 17:17 08/26/24 17:17 Laboratory Results WBC 9.50 10^3/uL (3.29-11.43) 08/26/24 17:17 RBC 4.30 10^6/uL (3.85-5.65) 08/26/24 17:17 Hgb 13.90 g/dL (11.27-16.99) 08/26/24 17:17 Hct 40.5 % (36-47) 08/26/24 17:17 MCV 94.2 fl (85-98) 08/26/24 17:17 MCH 32.3 pg (27-33) 08/26/24 17:17 MCHC 34.3 g/dL (30-55) 08/26/24 17:17 RDW 12.7 % (12.1-15.1) 08/26/24 17:17 Plt Count 293 10^3/cmm (157-399) 08/26/24 17:17 MPV 9.4 fL (7.4-10.4) 08/26/24 17:17 Neut % (Auto) 55.8 % 08/26/24 17:17 Lymph % (Auto) 34.5 % 08/26/24 17:17 [place] % (Auto) 7.7 % 08/26/24 17:17 Eos % (Auto) 1.3 % 08/26/24 17:17 Baso % (Auto) 0.4 % 08/26/24 17:17 Neut # (Auto) 5.30 10^3/uL (1.8-7.7) 08/26/24 17:17 Lymph # (Auto) 3.3 10^3/uL (0.8-4.8) 08/26/24 17:17 [place] # (Auto) 0.7 10^3/uL (0.2-0.9) 08/26/24 17:17 Eos # (Auto) 0.1 10^3/uL (0.0-0.8) 08/26/24 17:17 Baso # (Auto) 0.0 10^3/uL (0.0-0.1) 08/26/24 17:17 Nucleated RBC % (auto) 0 % 08/26/24 17:17 Nucleated RBCs # 0.0 /100WBC 08/26/24 17:17 Sodium 139 mmol/L (136-145) 08/26/24 17:17 Potassium 4.1 mmol/L (3.5-5.1) 08/26/24 17:17 Chloride 105 mmol/L (98-107) 08/26/24 17:17 Carbon Dioxide 21 mmol/L (22-29) L 08/26/24 17:17 Anion Gap 17.1 (5-19) 08/26/24 17:17 BUN 11 mg/dL (6-20) 08/26/24 17:17 Creatinine 0.6 mg/dL (0.5-0.9) 08/26/24 17:17 GFR Calculation 111.9 mL/min (90-130) 08/26/24 17:17 Glucose 91 mg/dL (65-115) 08/26/24 17:17 Calculated Osmolality 287 mOsm/kg (285-295) 08/26/24 17:17 Calcium 9.7 mg/dL (8.5-10.5) 08/26/24 17:17 Total Bilirubin 0.3 mg/dL (0.15-1.2) 08/26/24 17:17 AST 22 U/L (0-32) 08/26/24 17:17 ALT 19 U/L (0-33) 08/26/24 17:17 Alkaline Phosphatase 72 U/L (35-105) 08/26/24 17:17 Total Protein 7.6 g/dL (6.6-8.7) 08/26/24 17:17 Albumin 4.3 g/dL (3.5-5.2) 08/26/24 17:17 Globulin 3.3 g/dL (1.3-4.6) 08/26/24 17:17 No radiology studies performed this visit Discharge Plan Discharge Patient Disposition: Home Clinical Impression: Muscle spasm Condition: Stable Prescriptions: No Action Zyrtec 10 mg capsule 10 mg PO DAILY Qty: 30 5RF albuterol sulfate 2.5 mg /3 mL (0.083 %) solution for nebulization 2.5 mg inhalation Q4H PRN (Reason: shortness of breath or wheezing) Qty: 75 0RF (DME) Disposable nebulizer circuit See Rx Instructions .ROUTE .MEDSUPPLY Qty: 1 0RF Rx Instructions: As directed epinephrine [EpiPen] 0.3 mg/0.3 mL auto-injector 0.3 mg IM Q4H PRN (Reason: anaphylaxis) Qty: 2 1RF Celexa 40 mg tablet 40 mg PO QAM Qty: 30 5RF Vitamin B-12 1,000 mcg Tablet 1,000 mcg PO QAM hydrocodone-acetaminophen 5-325 mg tablet 1 tab PO Q6H PRN (Reason: pain) Qty: 14 0RF prednisone 50 mg tablet 50 mg PO DAILY Qty: 5 0RF cyclobenzaprine 5 mg tablet 5 mg PO TID PRN (Reason: muscle spasm) Qty: 14 0RF Discharge Orders: Discharge ED (Routine); Ordered 08/26/24 Ordered By: Anisha Amin Referrals: Renny Rosas DO [Primary Care Provider, Family Practice] - 4-7 days Discharge Diet: Advance as tolerated Discharge Activity: Resume usual activity Patient Instructions: Muscle Spasm (ED) Print Language: Estonian Coding Level of Care Code ED Art History Professor for Paris Cannon
== END 2024-08-26 18:44 | disposition home or self-care (01) ==
PROVIDERS: Emergency Provider Emergency Medicine; PCP Family Medicine
DX: M62.838 Other muscle spasm (principal); F17.210 Nicotine dependence, cigarettes, uncomplicated
CPT/HCPCS: 36415; 80053; 85025; 99283; J9999

== ENCOUNTER 2024-09-25 21:26 | Emergency (ER) | payer MEDICAID, SELFPAY ==
[2024-09-25 21:33] VITALS: BP 125/85; PULSE 65; RESP 17; TEMP 36.8; O2SAT 98; BMI 34.0
--- NOTE | 2024-09-25 22:06 | W.ED.SKABFB ---
HPI - Skin/Abscess/Foreign Bdy General: Chief complaint: Skin/Abscess/Foreign Body Stated complaint: Infected Tatoo Time Seen by Provider: 09/25/24 21:44 Source: patient Mode of arrival: ambulatory Limitations: no limitations History of Present Illness: 38yo female here with family for concern of infection of the right upper arm. Patient states she allowed her daughter to test to her arm for practice and patient accidentally scratched it 4 days ago. States that she has been cleaning it at home, but believes it may be infected. Patient does have multiple antibiotic allergies. States that she did have some old doxycycline at home, but was afraid that it was out of date. She denies fever, chills, bodies, any other concern at this time. Tetanus is not up-to-date. Associated symptoms: Deny chills or fever(s) Related Data Home Medications ?Medication ?Instructions ?Recorded ?Confirmed cyanocobalamin (vitamin B-12) 1,000 mcg PO QAM 10/13/22 08/29/24 1,000 mcg tablet (Vitamin B-12) Previous Rx's ?Medication ?Instructions ?Recorded cetirizine 10 mg capsule (Zyrtec) 10 mg PO DAILY #30 caps 12/03/22 hydrocodone 5 mg-acetaminophen 325 1 tab PO Q6H PRN pain #14 tabs 01/17/24 mg tablet Disposable nebulizer circuit #1 ea 01/19/24 albuterol sulfate 2.5 mg/3 mL 2.5 mg (3 mL) inhalation Q4H PRN 01/19/24 (0.083 %) solution for nebulization shortness of breath or wheezing #75 mL citalopram 40 mg tablet (Celexa) 40 mg PO QAM #30 tabs 02/14/24 epinephrine 0.3 mg/0.3 mL 0.3 mg (0.3 mL) IM Q4H PRN 02/14/24 injection, auto-injector (EpiPen) anaphylaxis #2 ea prednisone 50 mg tablet 50 mg PO DAILY #5 tabs 06/23/24 baclofen 5 mg tablet 5 mg PO BID PRN muscle spasm #20 08/29/24 tabs buspirone 5 mg tablet 5 mg PO BID #60 tabs 08/29/24 doxycycline hyclate 100 mg capsule 100 mg PO BID 7 days #14 caps 09/25/24 Allergies Allergy/AdvReac Type Severity Reaction Status Date / Time venom-wasp Allergy Severe ALGY-Difficulty Verified 08/29/24 13:06 Breathing methocarbamol Allergy Mild ADR-Itching Verified 08/29/24 13:06 cayenne Allergy Unknown Verified 08/29/24 13:06 ciprofloxacin (From Cipro) Allergy ALGY-Anaphy Verified 08/29/24 13:06 laxis diphenhydramine (From Allergy ADR-Drowsy Verified 08/29/24 13:06 Benadryl) gabapentin Allergy ADR-Nausea Verified 08/29/24 13:06 Iodinated Contrast Media Allergy Unknown Verified 08/29/24 13:06 meloxicam (From Mobic) Allergy Unknown Verified 08/29/24 13:06 metronidazole (From Flagyl) Allergy ALGY-Difficulty Verified 08/29/24 13:06 Breathing orange Allergy Unknown Verified 08/29/24 13:06 Penicillins Allergy ALGY-Anaphy Verified 08/29/24 13:06 laxis Sulfa (Sulfonamide Allergy ALGY-Anaphy Verified 08/29/24 13:06 Antibiotics) laxis Review of Systems Const: Denies: fever(s), chills or body aches Skin/Breast: Reports: skin tenderness (Right upper arm) and sores (Right upper arm tattoo) PFSH ED PFSH: Medical History (Updated 09/25/24 @ 22:04 by MICHAEL Segura) Dislocation, joint, recurrent hx of recurrent joint dislocations History of anaphylaxis Wasp Vitamin B deficiency Environmental and seasonal allergies Chronic hand pain Surgical History History of surgery on arm right tendon repair 2017 History of section 2012 and 2014 History of tubal ligation History of hemorrhoidectomy Family History Father Cancer Bone and Lymphoma Other Heart disease Denies family history of Bleeding disorder Social History Smoking and tobacco/nicotine status: current every day tobacco/nicotine user cigarettes Packs smoked per day: 0.5 Years cigarettes smoked: 20 Quit status (tobacco/nicotine): has tried quititng Number of times tried to quit tobacco: 1 Second hand smoke exposure: No Alcohol intake: never Substance/Drug Use: former Date of last use: Marijuana - teen. Adopted: No Caregiver/support person: No Lives independently: Yes Household members: spouse Housing: House Marital status: Number of children: 6 service: No Current occupational status: employed Do you think of yourself as: Straight/Heterosexual Current gender identity: Female Female Reproductive History: Para: 6 Spontaneous abortions: Yes (6) Physical Exam Const: COMMON NORMALS: no acute distress, patient oriented x3, healthy appearing and alert GENERAL APPEARANCE: cooperative ORIENTATION/CONSCIOUSNESS: Yes awake OTHER: Patient is ambulatory to the vertical flow recliner with no difficulty. She is able to give history with no difficulty. She is interactive with exam appropriately. Family is at bedside HENMT: COMMON NORMALS: normocephalic and atraumatic HEAD & SCALP: normocephalic and atraumatic Neck/C-Spine: COMMON NORMALS: full ROM Chest: CHEST: Yes Symmetrical chest wall rise Resp: COMMON NORMALS: normal respiratory effort EFFORT & INSPECTION: Yes able to speak in complete sentences Cardio: COMMON NORMALS: regular rate RATE: regular rate Extremity: COMMON NORMALS: full ROM Neuro: COMMON NORMALS: patient oriented x3 SENSORIUM/ORIENTATION: Yes alert Psych: COMMON NORMALS: cooperative Skin: OTHER: Erythema and tenderness Course Vital Signs: Vital signs: Vital Signs Temperature 98.3 F 09/25/24 21:33 Pulse Rate 71 09/25/24 22:40 Respiratory Rate 17 09/25/24 22:40 Blood Pressure 127/81 09/25/24 22:40 Pulse Oximetry 98 09/25/24 22:40 Oxygen Delivery Me thod Room Air 09/25/24 21:33 MDM - Skin/Abscess/Foreign Bdy Medicial Decision Making 38yo female here with family for concern of infection of the right upper arm. Patient states she allowed her daughter to test to her arm for practice and patient accidentally scratched it 4 days ago. States that she has been cleaning it at home, but believes it may be infected. Patient does have multiple antibiotic allergies. States that she did have some old doxycycline at home, but was afraid that it was out of date. She denies fever, chills, bodies, any other concern at this time. Tetanus is not up-to-date. Patient is nontoxic in appearance. Vital signs are stable. Discussed with patient concern for infection. Patient does have multiple antibiotic allergies but has previously tolerated doxycycline. Will proceed with doxycycline tonight. Recommend patient continue to wash the area and monitor for any worsening. Advised to follow-up with primary care, call in a few days with an update of symptoms and to discuss a recheck. Return precautions provided. Patient states understanding and has no further questions or concerns at this time. Medical Records I reviewed the patient's medical records. No radiology studies performed this visit Discharge Plan Discharge Patient Disposition: Home Clinical Impression: Cellulitis of arm, right Condition: Stable Prescriptions: New doxycycline hyclate 100 mg capsule 100 mg PO BID 7 Days Qty: 14 0RF No Action Zyrtec 10 mg capsule 10 mg PO DAILY Qty: 30 5RF albuterol sulfate 2.5 mg /3 mL (0.083 %) solution for nebulization 2.5 mg inhalation Q4H PRN (Reason: shortness of breath or wheezing) Qty: 75 0RF (DME) Disposable nebulizer circuit See Rx Instructions .ROUTE .MEDSUPPLY Qty: 1 0RF Rx Instructions: As directed epinephrine [EpiPen] 0.3 mg/0.3 mL auto-injector 0.3 mg IM Q4H PRN (Reason: anaphylaxis) Qty: 2 1RF Celexa 40 mg tablet 40 mg PO QAM Qty: 30 5RF buspirone 5 mg tablet 5 mg PO BID Qty: 60 0RF Rx Instructions: start once per day in the evening, for 5 days then may increase to bid dosing baclofen 5 mg tablet 5 mg PO BID PRN (Reason: muscle spasm) Qty: 20 0RF Vitamin B-12 1,000 mcg Tablet 1,000 mcg PO QAM hydrocodone-acetaminophen 5-325 mg tablet 1 tab PO Q6H PRN (Reason: pain) Qty: 14 0RF prednisone 50 mg tablet 50 mg PO DAILY Qty: 5 0RF Discharge Orders: Discharge ED (Routine); Ordered 09/25/24 Ordered By: Gilbert Corral Referrals: Renny Rosas DO [Primary Care Provider, Family Practice] Patient Instructions: Cellulitis (ED), Pain Management Activity Restrictions/Additional Instructions: Doxycycline has been sent to your pharmacy for treatment of the infection Gently wash with soap and water twice daily. You may continue with the antibiotic ointment Follow-up with primary care, call in 2 to 3 days with an update of symptoms and to discuss a recheck Return to the emergency department if any rapid worsening symptoms, onset of fever associated with worsening, and as needed Print Language: [place] Islander Coding Level of Care Code ED Soap Tender for Paris Cannon
[2024-09-25] MEDS: doxycycline 100 mg Tablet PO (22:15)
[2024-09-25] MEDS: tetanus-dipt-pertussis 0.5 mL SDV IM (22:15)
[2024-09-25 22:40] VITALS: BP 127/81; PULSE 71; RESP 17; O2SAT 98
== END 2024-09-25 22:41 | disposition home or self-care (01) ==
PROVIDERS: Emergency Provider Nurse Practitioner; PCP Family Medicine
DX: L03.113 Cellulitis of right upper limb (principal); F17.210 Nicotine dependence, cigarettes, uncomplicated
CPT/HCPCS: 90471; 90715; 99283; J9999

== ENCOUNTER 2024-11-10 22:12 | Emergency (ER) | payer MEDICAID, SELFPAY ==
--- OUTSIDE RECORDS SUMMARY | 2021-03-05 04:00 | XMS_ITS | Continuity of Care Document ---
Author Organization [facility] Address [id number] [address] Phone Care Team Providers Care Director Of Securities And Real Estate Name Role Phone Ramon Torres DDS Unavailable Unavailable Ammy Rico Unavailable Unavailable Allergies, Adverse Reactions, Alerts Substance Reaction Status Criticality CIPROFLOXACIN HCL Active No Informa tion ciprofloxacin Active No Information metronidazole Active No Information PENICILLIN Active No Information Sulfa (Sulfonamide Antibiotics) Active No Information CITRUS FLAVOR Active No Information Medications Medication Instructions Dosage Effective Dates (start - stop) Status Comments clindamycin HCl 150 mg capsule take 1 capsule by oral route every 6 hours 150 MG - Active citalopram 10 mg tablet take 1 tablet by oral route every day 10 MG - Active ibuprofen 200 mg capsule take 1 capsule by oral route every 6 hours as needed 200 MG - Active Tylenol 325 mg capsule - Active EasiVent Mask Small - Active Procedures Procedure Date Intraoral Periapical First Film Limited Oral Evaluation Problem Focused Extraction, Erupted Tooth Or Exposed Rosana t (Elevati EDR Approval Note Perio Probing Caries High Risk Exempt From Sealant Measure Resin-Based Composite Two Surfaces, Posterior Resin-Based Composite Two Surfaces, Posterior Resin-Based Composite Three Surfaces, Posterior Resin-Based Composite One Surface, Anterior Resin-Based Composite Three Surfaces, Anterior EDR Approval Note Bitewings Four Films Panoramic Film Intraoral Periapical First Film Intraoral Periapical Each Additional Film Intraoral Periapical Each Additional Film Intraoral Periapical Each Additional Film Comprehensive Oral Evaluatio n New Or Established EDR Approval Note Advance Directives Directive Yes / No Effective Date File Name No Information Encounters Encounter Description Practice Location Reason(s) For Visit Diagnoses Date Provider Providers Copied on Encounter [facility], [id number], [id number], [place] tel:[phone] [facility] No Information Brian Navarro. [address] [place], [address], [place]. tel:[phone] Referring Provider: Ramon Torres, [address] [place], [address]. tel:[phone] sulting Provider: Ammy Rico, [address] [place], [address] . tel:[phone] [facility], [id number], [id number], [place] tel:[phone] [facility] No Information 1 No Information [facility], [id number], [id number], [place] tel:[phone] [facility] Encounter for dental exam and cleaning w/o abnormal findings 1 No Information [facility], [id number], [id number], [place] tel:[phone] [facility] Encounter for dental exam and cleaning w/o abnormal findings No Information Family History Family Member Type Diagnosis Age At Onset No Information Payers Payer name Insurance type Covered alliance party ID Aldo bowling(trudi Fowler [employer] CI [id number] Social History Type Description Quantity Date Captured Comments Alcohol Use Details No Caffeine Use Details Unknown Tobacco Use Status Occasional cigarette smoker Smoking Status Heavy tobacco smoker Smoking Tobacco Use Details Cigarette: No Details Available Cigarette: 1 Packs per day Sex Female Sexual Orientation Heterosexual Gender Identity Female Vital Signs Date / Time: Height Weight BMI Pulse Rate Blood Pressure Temperature Respiratory Rate Body Surface Area Head Circumference Head Circ. Percentile Wt./Chidi. Percentile BMI percentile Pulse Ox Inhaled Ox 9:44 AM 112/77 mm[Hg] Chief Complaint And Reason For Visit No Information Reason For Referral Reason For Referral No Information Plan Of Treatment Date Type Action Status Goal Tobacco cessation counseling completed History Of Present Illness Encounter Date Complaint History Of Prese nt Illness No Information Functional Status Date Functional Assessmen t No Information Instructions Date Instruction Additional Infor mation Lifestyle education Related to D ental Examination Assessments Type Assessment Date No Information Patient Care Teams Name Effective Dates (start - stop) Status Members No Information
[2024-11-10 22:18] VITALS: BP 106/58; PULSE 80; RESP 17; TEMP 36.7; O2SAT 97; BMI 34.0
--- OUTSIDE RECORDS SUMMARY | 2024-11-10 22:37 | XMS_ITS | Clinical Summary ---
Author Organization [facility] Address [address] [place] [address] Phone Care Team Providers Care Extruder Operator Helper Name Role Phone Yordan Maurer NP Primary Care Provider Allergies Active Allergy Reactions Criticality Noted Date Comments Penicillins Anaphylaxis High 12/09/2016 Sulfa (Sulfonamide Antibiotics) Anaphylaxis High Medications cyclobenzaprine (FLEXERIL) 10 mg tablet TAKE ONE TABLET BY MOUTH TWICE DAILY NEEDED 0 Active ibuprofen (MOTRIN) 800 mg tablet Take 800 mg by mouth every 6 hours as needed for Pain, Mild. 0 Active albuterol sulfate HFA 90 mcg/actuation aerosol inhaler Take 2 Puffs by inhalation every 6 hours as needed for Shortness of Breath. 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 Gender Identity Not on file Sexual Orientation Not on file Last Filed Vital Signs Vital Sign Reading Time Taken Comments Blood Pressure 113/70 11/22/2019 2:30 PM CDT Pulse 88 11/22/2019 2:30 PM CDT Temperature 36.5 C (97.7 F) 12/15/2016 3:15 PM CDT Respiratory Rate 16 12/15/2016 2:30 PM CDT Oxygen Saturation - - Inhaled Oxygen Concentration - - Weight 79.4 kg (175 lb) 11/22/2019 2:30 PM CDT Height 160 cm (5' 3 ) 11/22/2019 2:30 PM CDT Body Mass Index 31 11/22/2019 2:30 PM CDT Plan of Treatment Health Maintenance Due Date Last Done Comments HPV VACCINES (1 - 3-dose series) 2000 DTAP/TDAP/TD VACCINES (1 - Tdap) 2004 HEPATITIS B VACCINES (1 of 3 - 19+ 3-dose series) 09/17 HPV/Cotest (21-29) 2006 CERVICAL CANCER SCREENING 10/12/2015 HPV/Cotest (30-65) 10/12/2015 PAP SMEAR 10/12/2015 INFLUENZA VACCINE (#1) 2024 Insurance * Guarantor: ARACELI KATZ Account Type Relation to Patient Date of Phone Billing Address Personal/Family [address] [place] [address] RX INFOCROSSING Medicaid Care Teams Extruder Operator Helper Relationship Specialty Start Date End Date Yordan Maurer NP [address] [place] [phone] PCP - General NURSE PRACTITIONER 12/15/16
--- OUTSIDE RECORDS SUMMARY | 2024-11-10 22:37 | XMS_ITS | Clinical Summary ---
Author Organization [facility] Address [address] [place] [address] Phone Care Team Providers Care Casino Gaming Worker Name Role Phone Yordan Maurer COST SPECIALIST Primary Care Provider Allergies Active Allergy Reactions Criticality Noted Date Comments Penicillins Anaphylaxis High 12/09/2016 Sulfa (Sulfonamide Antibiotics) Anaphylaxis High Medications albuterol HFA 90 mcg inhaler Take 2 Puffs by inhalation every 6 hours as needed for Shortness of Breath. Active cyclobenzaprine (FLEXERIL) 10 mg tablet TAKE ONE TABLET BY MOUTH TWICE DAILY NEEDED 0 Active ibuprofen (MOTRIN) 800 mg tablet Take 800 mg by mouth every 6 hours as needed for Pain, Mild. Active Active Problems Problem Noted Date Diagnosed [...] at Not on file Legal Sex Female 7:55 AM CDT Gender Identity Not on file Sexual Orientation Not on file Last Filed Vital Signs Vital Sign Reading Time Taken Comments Blood Pressure 113/70 11/22/2019 2:30 PM CDT Pulse 88 11/22/2019 2:30 PM CDT Temperature 36.5 C (97.7 F) 12/15/2016 3:15 PM CDT Respiratory Rate 16 12/15/2016 2:30 PM CDT Oxygen Saturation 95% 12/15/2016 3:15 PM CDT Inhaled Oxygen Concentration - - Weight 79.4 [...] SMEAR 10/12/2015 INFLUENZA VACCINE (#1) 2024 Insurance [facility] RX INFOCROSSING Medicaid Care Teams Casino Gaming Worker Relationship Specialty Start Date End Date Yordan Maurer NP PCP - General NURSE PRACTITIONER 12/15/16
[2024-11-10 22:51] VITALS: BP 106/66; PULSE 71; O2SAT 93
--- NOTE | 2024-11-10 22:55 | XRR_ITS ---
PROCEDURE INFORMATION: Exam: XR Left Foot Exam date and time: 11/10/2024 10:57 PM Age: 39 years old Clinical indication: Injury or trauma; Other: Had 100lb object fall on left foot; Blunt trauma; Additional info: Crush inj TECHNIQUE: Imaging protocol: Radiologic exam of the left foot. Views: 3 or more views. COMPARISON: No relevant prior studies available. FINDINGS: Bones/joints: Normal. No acute displaced fracture or dislocation. Soft tissues: Normal. XR/XR foot LT min 3V* [id number] IMPRESSION: No acute findings.
--- NOTE | 2024-11-10 23:07 | W.ED.EXTPRO ---
HPI - Extremity Problem General: Chief complaint: Extremity Injury, Lower Stated complaint: Dropped a 100lb clamp on L foot Time Seen by Provider: 11/10/24 22:47 History of Present Illness: 39-year-old female who had a heavy piece of equipment fall on top of her left foot. She has pain, swelling, and bruising to the dorsum of the left midfoot. She cannot bear weight. Related Data Home Medications ?Medication ?Instructions ?Recorded ?Confirmed cyanocobalamin (vitamin B-12) 1,000 mcg PO QAM 10/13/22 09/26/24 1,000 mcg tablet (Vitamin B-12) Previous Rx's ?Medication ?Instructions ?Recorded cetirizine 10 mg capsule (Zyrtec) 10 mg PO DAILY #30 caps 12/03/22 Disposable nebulizer circuit #1 ea 01/19/24 albuterol sulfate 2.5 mg/3 mL 2.5 mg (3 mL) inhalation Q4H PRN 01/19/24 (0.083 %) solution for nebulization shortness of breath or wheezing #75 mL epinephrine 0.3 mg/0.3 mL 0.3 mg (0.3 mL) IM Q4H PRN 02/14/24 injection, auto-injector (EpiPen) anaphylaxis #2 ea baclofen 5 mg tablet 5 mg PO TID PRN muscle spasm #90 10/05/24 tabs citalopram 40 mg tablet (Celexa) 40 mg PO QAM #30 tabs 10/23/24 hydrocodone 5 mg-acetaminophen 325 1 tab PO Q4H PRN chronic pain 15 11/01/24 mg tablet days #90 tabs oxycodone-acetaminophen 7.5 mg-325 1 tab PO Q6H PRN pain #8 tabs 11/10/24 mg tablet (Percocet) Allergies Allergy/AdvReac Type Severity Reaction Status Date / Time venom-wasp Allergy Severe ALGY-Difficulty Verified 10/23/24 13:00 Breathing methocarbamol Allergy Mild ADR-Itching Verified 10/23/24 13:00 cayenne Allergy Unknown Verified 10/23/24 13:00 ciprofloxacin (From Cipro) Allergy ALGY-Anaphy Verified 10/23/24 13:00 laxis diphenhydramine (From Allergy ADR-Drowsy Verified 10/23/24 13:00 Benadryl) gabapentin Allergy ADR-Nausea Verified 10/23/24 13:00 Iodinated Contrast Media Allergy Unknown Verified 10/23/24 13:00 meloxicam (From Mobic) Allergy Unknown Verified 10/23/24 13:00 metronidazole (From Flagyl) Allergy ALGY-Difficulty Verified 10/23/24 13:00 Breathing orange Allergy Unknown Verified 10/23/24 13:00 Penicillins Allergy ALGY-Anaphy Verified 10/23/24 13:00 laxis Sulfa (Sulfonamide Allergy ALGY-Anaphy Verified 10/23/24 13:00 Antibiotics) laxis PFSH ED PFSH: Medical History Dislocation, joint, recurrent hx of recurrent joint dislocations History of anaphylaxis Wasp Vitamin B deficiency Environmental and seasonal allergies Chronic hand pain Surgical History History of surgery on arm right tendon repair 2017 History of section 2012 and 2014 History of tubal ligation History of hemorrhoidectomy Family History Father Cancer Bone and Lymphoma Other Heart disease Denies family history of Bleeding disorder Social History Smoking and tobacco/nicotine status: current every day tobacco/nicotine user cigarettes Packs smoked per day: 0.5 Years cigarettes smoked: 20 Quit status (tobacco/nicotine): has tried quititng Number of times tried to quit tobacco: 1 Second hand smoke exposure: No Alcohol intake: never Substance/Drug Use: former Date of last use: Marijuana - teen. Adopted: No Caregiver/support person: No Lives independently: Yes Household members: spouse Housing: House Marital status: Number of children: 6 service: No Current occupational status: employed Do you think of yourself as: Straight/Heterosexual Current gender identity: Female Female Reproductive History: Para: 6 Spontaneous abortions: Yes (6) Physical Exam Const: COMMON NORMALS: no acute distress GENERAL APPEARANCE: cooperative; not ill appearing and not frail appearing HENMT: COMMON NORMALS: normocephalic, atraumatic and Normal external nose present HEAD & SCALP: normocephalic and atraumatic FACE & SINUS: normal facial exam and face symmetric NOSE: Normal external nose present Eye: COMMON NORMALS: Equal, round and reactive pupils present and EOMs intact bilaterally PUPIL: Yes Equal, round and reactive pupils present Neck/C-Spine: GENERAL: Yes trachea midline Chest: CHEST: Yes Symmetrical chest wall rise Resp: COMMON NORMALS: normal respiratory effort, No retractions and No use of accessory muscles Cardio: COMMON NORMALS: regular rate and regular rhythm RATE: regular rate RHYTHM: regular rhythm Neuro: WALKER COMA SCALE: document GCS findings [place] coma scale eye opening: Spontaneous [place] coma scale verbal response: Orientated Walker coma scale motor response: Obey commands [place] coma scale total score: 15 SENSORY EXAM: Yes extremities (intact) Psych: COMMON NORMALS: speech normal SPEECH: Yes normal speech Course Vital Signs: Vital signs: Vital Signs Temperature 98.1 F 11/10/24 22:18 Pulse Rate 93 11/11/24 00:14 Respiratory Rate 17 11/10/24 22:18 Blood Pressure 131/85 11/11/24 00:14 Pulse Oximetry 99 11/11/24 00:14 Oxygen Delivery Me thod Room Air 11/10/24 22:51 MDM - Extremity (Nontraumatic) Medical Decision Making X-ray negative for fracture.There is some soft tissue swelling and bruising. She is given injection of pain medication here. She is on hydrocodone chronically. She was told she may use a lidocaine patch. We will increase her pain medication transiently. She is to ice elevate and Sandip wrap. She has crutches with her. Lab Data Radiology Impressions Foot X-Ray 11/10/24 22:55 IMPRESSION: No acute findings. All radiology interpretation(s) finalized by discharge Discharge Plan Discharge Patient Disposition: Home Clinical Impression: Crush injury of left foot Condition: Stable Prescriptions: New oxycodone-acetaminophen [Percocet] 7.5-325 mg tablet 1 tab PO Q6H PRN (Reason: pain) Qty: 8 0RF No Action Zyrtec 10 mg capsule 10 mg PO DAILY Qty: 30 5RF albuterol sulfate 2.5 mg /3 mL (0.083 %) solution for nebulization 2.5 mg inhalation Q4H PRN (Reason: shortness of breath or wheezing) Qty: 75 0RF (DME) Disposable nebulizer circuit See Rx Instructions .ROUTE .MEDSUPPLY Qty: 1 0RF Rx Instructions: As directed epinephrine [EpiPen] 0.3 mg/0.3 mL auto-injector 0.3 mg IM Q4H PRN (Reason: anaphylaxis) Qty: 2 1RF baclofen 5 mg tablet 5 mg PO TID PRN (Reason: muscle spasm) Qty: 90 2RF Celexa 40 mg tablet 40 mg PO QAM Qty: 30 5RF hydrocodone-acetaminophen 5-325 mg tablet 1 tab PO Q4H MDD total of 6 per day PRN (Reason: chronic pain) 15 Days Qty: 90 0RF Vitamin B-12 1,000 mcg Tablet 1,000 mcg PO QAM Discharge Orders: Discharge ED (Routine); Ordered 11/10/24 Ordered By: Kurt Trujillo Referrals: Renny Rosas DO [Primary Care Provider, [facility]] - 4-7 days Patient Instructions: Crush Injury (ED), Opioid Safety, Pain Management, Patient Portal & Kenny Instructions Activity Restrictions/Additional Instructions: Ice, elevate, compression for swelling. You may use lidocaine patches for pain. Use pain medication sparingly. Return for problems. Follow-up with your doctor in 1 week. Print Language: Ukrainian Coding Level of Care Code ED Implementation Analyst for Paris Cannon
[2024-11-10] MEDS: HYDROmorphone 0.5 MG/0.5 ML INJ 1 MG IM (23:44)
[2024-11-11 00:14] VITALS: BP 131/85; PULSE 93; O2SAT 99
== END 2024-11-11 00:17 | disposition home or self-care (01) ==
PROVIDERS: Emergency Provider Emergency Medicine; PCP Family Medicine
DX: S97.82XA Crushing injury of left foot, initial encounter (principal); X58.XXXA Exposure to other specified factors, initial encounter
CPT/HCPCS: 73630; 96372; 99284; J1171; Q0162

== ENCOUNTER 2025-04-02 18:26 | Emergency (ER) | payer MEDICAID, SELFPAY ==
--- OUTSIDE RECORDS SUMMARY | 2025-04-02 18:31 | XMS_ITS | Clinical Summary ---
Author Organization [facility] Address [address] [place] [address] Phone Care Team Providers Care Care Center Manager Name Role Phone Yordan Maurer NP Primary [...] on file Legal Sex Female 7:44 AM PALLIATIVE CARE COORDINATOR Gender Identity Not on file Sexual Orientation [...] Health Maintenance Due Date Last Done Comments DTAP/TDAP/TD VACCINES (1 - Tdap) 2004 HEPATITIS B VACCINES (1 of 3 - 19+ 3-dose series) 09/17 HPV/Cotest (21-29) 2006 CERVICAL CANCER SCREENING 10/12/2015 HPV/Cotest (30-65) 10/12/2015 PAP SMEAR 10/12/2015 INFLUENZA VACCINE (#1) 2024 HPV VACCINES (No Doses Required) Completed Insurance * Guarantor: ARACELI KATZ Account Type Relation to Patient Date of Phone Billing Address Personal/Family [address] [place] [address] RX INFOCROSSING Medicaid Care Teams Care Center Manager Relationship Specialty Start Date End Date Yordan Maurer NP [address] [place] [phone] PCP - General NURSE PRACTITIONER 12/15/16
--- OUTSIDE RECORDS SUMMARY | 2025-04-02 18:31 | XMS_ITS | Clinical Summary ---
Author Organization [facility] Address [address] [place] [address] Phone Care Team Providers Care Fur Drummer Name Role Phone Yordan Maurer AUTOMATIC GLOVE TURNER AND FORMER Primary Care Provider [phone] Allergies Active Allergy Reactions Criticality Noted Date [...] HPV VACCINES (No Doses Required) Completed Insurance [facility] RX INFOCROSSING Medicaid Care Teams Fur Drummer Relationship Specialty Start Date End Date Yordan Maurer NP PCP - General NURSE PRACTITIONER 12/15/16
[2025-04-02 18:40] VITALS: BP 111/74; PULSE 70; RESP 16; TEMP 36.8; O2SAT 97; BMI 33.6
--- NOTE | 2025-04-02 18:52 | W.ED.DENTAL ---
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 She is having some sinus pain and dental pain. She has an appoint with her dentist tomorrow. Related Data Home Medications ?Medication ?Instructions ?Recorded ?Confirmed cyanocobalamin (vitamin B-12) 1,000 mcg PO QAM 10/13/22 11/13/24 1,000 mcg tablet (Vitamin B-12) Previous Rx's ?Medication ?Instructions ?Recorded cetirizine 10 mg capsule (Zyrtec) 10 mg PO DAILY #30 caps 12/03/22 Disposable nebulizer circuit #1 ea 01/19/24 albuterol sulfate 2.5 mg/3 mL 2.5 mg (3 mL) inhalation Q4H PRN 01/19/24 (0.083 %) solution for nebulization shortness of breath or wheezing #75 mL epinephrine 0.3 mg/0.3 mL 0.3 mg (0.3 mL) IM Q4H PRN 02/14/24 injection, auto-injector (EpiPen) anaphylaxis #2 ea baclofen 5 mg tablet 5 mg PO TID PRN muscle spasm #90 10/05/24 tabs citalopram 40 mg tablet (Celexa) 40 mg PO QAM #30 tabs 10/23/24 cephalexin 500 mg capsule 500 mg PO QID mastitis #40 caps 03/05/25 hydrocodone 5 mg-acetaminophen 325 1 tab PO Q4H PRN chronic pain 20 03/27/25 mg tablet days #120 tabs clindamycin HCl 300 mg capsule 600 mg (2 x 300 mg) PO Q8H 10 days 04/02/25 #60 caps dexamethasone 6 mg tablet 6 mg PO DAILY 5 days #5 tabs 04/02/25 Allergies Allergy/AdvReac Type Severity Reaction Status Date / Time venom-wasp Allergy Severe ALGY-Difficulty Verified 04/02/25 18:46 Breathing methocarbamol Allergy Mild ADR-Itching Verified 04/02/25 18:46 cayenne Allergy Unknown Verified 04/02/25 18:46 ciprofloxacin (From Cipro) Allergy ALGY-Anaphy Verified 04/02/25 18:46 laxis diphenhydramine (From Allergy ADR-Drowsy Verified 04/02/25 18:46 Benadryl) gabapentin Allergy ADR-Nausea Verified 04/02/25 18:46 Iodinated Contrast Media Allergy Unknown Verified 04/02/25 18:46 meloxicam (From Mobic) Allergy Unknown Verified 04/02/25 18:46 metronidazole (From Flagyl) Allergy ALGY-Difficulty Verified 04/02/25 18:46 Breathing orange Allergy Unknown Verified 04/02/25 18:46 Penicillins Allergy ALGY-Anaphy Verified 04/02/25 18:46 laxis Sulfa (Sulfonamide Allergy ALGY-Anaphy Verified 04/02/25 18:46 Antibiotics) laxis Review of Systems Narrative: Constitutional symptoms: Negative except as documented in HPI. Skin symptoms: Negative except as documented in HPI. Eye symptoms: Negative except as documented in HPI. ENMT symptoms: Negative except as documented in HPI. Respiratory symptoms: Negative except as documented in HPI. Cardiovascular symptoms: Negative except as documented in HPI. Gastrointestinal symptoms: Negative except as documented in HPI. Genitourinary symptoms: Negative except as documented in HPI. Musculoskeletal symptoms: Negative except as documented in HPI. Neurologic symptoms: Negative except as documented in HPI. Psychiatric symptoms: Negative except as documented in HPI. Endocrine symptoms: Negative except as documented in HPI. PFSH ED PFSH: Medical History (Updated 04/02/25 @ 18:53 by Leida Caputo MD) Dislocation, joint, recurrent hx of recurrent joint dislocations History of anaphylaxis Wasp Vitamin B deficiency Environmental and seasonal allergies Chronic hand pain Surgical History History of surgery on arm right tendon repair 2017 History of section 2012 and 2014 History of tubal ligation History of hemorrhoidectomy Family History Father Cancer Bone and Lymphoma Other Heart disease Denies family history of Bleeding disorder Social History Smoking and tobacco/nicotine status: current every day tobacco/nicotine user cigarettes Packs smoked per day: 0.5 Years cigarettes smoked: 20 Quit status (tobacco/nicotine): has tried quititng Number of times tried to quit tobacco: 1 Second hand smoke exposure: No Alcohol intake: never Substance/Drug Use: former Date of last use: Marijuana - teen. Adopted: No Caregiver/support person: No Lives independently: Yes Household members: spouse Housing: House Marital status: Number of children: 6 service: No Current occupational status: employed Do you think of yourself as: Straight/Heterosexual Current gender identity: Female Female Reproductive History: Para: 6 Spontaneous abortions: Yes (6) Physical Exam Narrative: EXAM NARRATIVE: General: Alert, no acute distress. Skin: warm and dry Head: Normocephalic Neck: Trachea midline Eye: Extraocular movements are intact. Ears, nose, mouth and throat: Oral mucosa moist. Very poor dentition. Possibly some swelling on the right upper gum area. Respiratory: Respirations are non-labored Musculoskeletal: Normal ROM Gastrointestinal: Abdomen does not appear distended Neurological: Alert and oriented, No focal neurological deficit observed. Psychiatric: Cooperative, appropriate mood & affect. Course Vital Signs: Vital signs: Vital Signs Temperature 98.3 F 04/02/25 18:40 Pulse Rate 70 04/02/25 18:40 Respiratory Rate 16 04/02/25 18:40 Blood Pressure 111/74 04/02/25 18:40 Pulse Oximetry 97 04/02/25 18:40 Oxygen Delivery Me thod Room Air 04/02/25 18:40 MDM - Dental/Oral Medical Decision Making Medical decision making Patient's reason for coming to the emergency room: Dental pain Social determinants: Patient is employed. Presents with her . I reviewed the patient's medical record. Chronic pain syndrome I reviewed the patient's current home meds Patient tells me she is on narcotics. She must fill these out of state because there is nothing in the prescription monitoring program Alternate historians: None Differential diagnosis: including but not limited to and based on the above HPI, review of systems and physical exam: Patient has a dental infection. Starting antibiotics. Assessment and plan: Dental infection - Discharged home - Discussed plan with patient. Answered any questions. - Evaluation and treatment of this problem were appropriate in the emergency setting. No radiology studies performed this visit Discharge Plan Discharge Patient Disposition: Home Clinical Impression: Dental infection Condition: Stable Prescriptions: New clindamycin HCl 300 mg capsule 600 mg PO Q8H 10 Days Qty: 60 0RF dexamethasone 6 mg tablet 6 mg PO DAILY 5 Days Qty: 5 0RF No Action Zyrtec 10 mg capsule 10 mg PO DAILY Qty: 30 5RF albuterol sulfate 2.5 mg /3 mL (0.083 %) solution for nebulization 2.5 mg inhalation Q4H PRN (Reason: shortness of breath or wheezing) Qty: 75 0RF (DME) Disposable nebulizer circuit See Rx Instructions .ROUTE .MEDSUPPLY Qty: 1 0RF Rx Instructions: As directed epinephrine [EpiPen] 0.3 mg/0.3 mL auto-injector 0.3 mg IM Q4H PRN (Reason: anaphylaxis) Qty: 2 1RF baclofen 5 mg tablet 5 mg PO TID PRN (Reason: muscle spasm) Qty: 90 2RF cephalexin 500 mg capsule 500 mg PO QID Qty: 40 0RF Celexa 40 mg tablet 40 mg PO QAM Qty: 30 5RF hydrocodone-acetaminophen 5-325 mg tablet 1 tab PO Q4H MDD total of 6 per day PRN (Reason: chronic pain) 20 Days Qty: 120 0RF Vitamin B-12 1,000 mcg Tablet 1,000 mcg PO QAM Discharge Orders: Discharge ED (Routine); Ordered 04/02/25 Ordered By: Leida Caputo Referrals: Renny Rosas DO [Primary Care Provider, Family Practice] Discharge Diet: Advance as tolerated Patient Instructions: Dental Abscess (ED), Opioid Safety, Pain Management, Patient Portal & Kenny Instructions Activity Restrictions/Additional Instructions: Thank you for choosing [facility] for your healthcare needs today. You have been screened and evaluated and felt safe for discharge. Health conditions do change or evolve sometimes and as such it is important that you follow up with your Primary Doctor to be re checked, 3-5 days is a general good time frame for follow up. You are always welcome to return to the ED for re assessment if your symptoms are worsening or you have new concerns. (Please note that included in your discharge packet is information concerning opioid safety and pain management. This information is given to all patients who are discharged from the ER regardless of their discharge diagnosis or the medicines they usually take or are prescribed.) Print Language: Singaporean Coding Level of Care Code ED Health Care Sanitary Technician for Paris Cannon
[2025-04-02 19:16] VITALS: RESP 20
[2025-04-02] MEDS: oxyCODONE 5 mg IR Tab/Cap 10 MG PO (19:16)
[2025-04-02 19:21] VITALS: BP 124/93; PULSE 71; O2SAT 96
[2025-04-02 19:25] VITALS: BP 124/93; PULSE 71; O2SAT 96
== END 2025-04-02 19:28 | disposition home or self-care (01) ==
PROVIDERS: Emergency Provider Emergency Medicine; PCP Family Medicine
DX: K04.7 Periapical abscess without sinus (principal)
CPT/HCPCS: 96372; 99284; J1100; J9999